=== PATIENT | female | born 1950 | race Caucasian/White ===

== ENCOUNTER 2017-02-08 11:27 | Emergency (ER) | payer MEDICARE, OTHER ==
[~2017-02-08] VITALS: Ht 162.6 cm; Wt 71.7 kg
[2017-02-08] MEDS ORDERED: HYDR12.55 PO (11:56)
[2017-02-08] MEDS ORDERED: METF-700 PO (11:56)
[2017-02-08] MEDS ORDERED: ATEN50TA2 PO (11:56)
[2017-02-08] MEDS ORDERED: LOSA100T36 PO (11:56)
[2017-02-08 14:15] LABS: MEAN CORPUSCULAR HEMOGLOBIN 30.4 pg (27.0-33.0); MEAN CORPUSCULAR HGB CONC 32.7 g/dl (32.0-36.5); MEAN CORPUSCULAR VOLUME 92.9 fl (80.0-96.0); RED CELL DISTRIBUTION WIDTH 13.3 % (11.5-14.5)
[2017-02-08 14:37] LABS: ANION GAP 11 MEQ/L (8-16); BLOOD UREA NITROGEN 17 MG/DL (7-18); CALCIUM LEVEL 10.3 MG/DL (8.8-10.2); CARBON DIOXIDE LEVEL 27 MEQ/L (21-32); CHLORIDE LEVEL 104 MEQ/L (98-107); CREATININE FOR GFR 0.77 MG/DL (0.55-1.02); GLOMERULAR FILTRATION RATE > 60.0 (>45); GLUCOSE, FASTING 115 MG/DL (80-110); POTASSIUM SERUM 3.9 MEQ/L (3.5-5.1); SODIUM LEVEL 142 MEQ/L (136-145)
--- NOTE | 2017-02-08 14:49 | REP ---
CT HEAD WITHOUT CONTRAST: HISTORY: Headache. Areas of decreased attenuation are present in the periventricular white matter. This represents small vessel ischemic disease. There is no intraparenchymal hemorrhage, mass or midline shift. The ventricular system and cortical sulci are dilated consistent with minimal volume loss. There is no extracerebral collection. The visualized sinuses are clear. IMPRESSION: 1. Small vessel ischemic disease. 2. Minimal volume loss. Signed by Marques Muller MD 02/08/2017 02:51 P
--- NOTE | 2017-02-08 14:53 | REP ---
Chest two views HISTORY: Hypertension Comparison: 05/15/2008 Linear density is present in the left lower lobe consistent with scar. The right lung is clear. The heart is normal in size. The pulmonary vasculature is normal in appearance. The bony structure is intact. IMPRESSION: Left lower lobe scar. Signed by Marques Muller MD 02/08/2017 02:44 P
[2017-02-08] MEDS ORDERED: CORE25TA PO (15:12)
[2017-02-08] MEDS ORDERED: CHLO125TA PO (15:12)
[2017-02-08] MEDS ORDERED: SPIR25TA2 PO (15:12)
[2017-02-08 15:25] VITALS: BP 153/74
--- NOTE | 2017-02-09 08:32 | ECGEPIP ---
Stationary ECG Study [facility] - ED Test Date: 2017-02-08 Pat Name: HARRIETT JENSEN Department: Room: - Gender: F [employer]: : 1950 Requested By: Rosina Hudson Order Number: [id number] Reading MD: Rosina Hudson Measurements Intervals [place] Rate: 65 P: 34 OK: 153 QRS: -12 QRSD: 87 T: 7 QT: 377 QTc: 394 Interpretive Statements SINUS RHYTHM MINIMAL ST DEPRESSION NSTTW ABNORMALITY NO PRIOR FOR COMPARISON Electronically Signed On 02-09-2017 8:31:54 EDT by Rosina Hudson
== END 2017-02-08 15:26 | disposition home or self-care (01) ==
LOC: M ED 14:14
DX: I10 Essential (primary) hypertension (principal); E11.9 Type 2 diabetes mellitus without complications; Z79.899 Other long term (current) drug therapy; Z79.84 Long term (current) use of oral hypoglycemic drugs

== ENCOUNTER → 2017-02-28 | Outpatient (REF) | payer MEDICARE, OTHER ==
[~2017-02-28] MED LIST: ATEN50TA2 PO; CHLO125TA PO; CORE25TA PO; HYDR12.55 PO; LOSA100T36 PO; METF-700 PO; SPIR25TA2 PO
[2017-02-28 12:29] LABS: MICROSCOPIC INDICATED? MAN NO (NO)
== END ==
LOC: M LABDRAW1 11:24
PROVIDERS: ATTEND Internal Medicine Cardiovascular Disease
DX: I10 Essential (primary) hypertension (principal)

== ENCOUNTER → 2017-04-05 | Outpatient (CLI) | payer MEDICARE, OTHER ==
--- NOTE | 2017-04-05 17:18 | REP ---
MRA RENAL ARTERIES: Localizing axial and coronal sequences are obtained of the kidneys. 3D TOF MRA is performed of the renal arteries following the intravenous administration of 30 mL of gadolinium. MIP reconstruction images are performed. The abdominal aorta is normal in caliber. There is no aneurysm. Mesenteric arteries are patent. There is a single renal artery bilaterally. The left renal artery is widely patent with no significant narrowing or stenosis. There does appear to be approximately 50% narrowing at the origin of the right renal artery. IMPRESSION: Focal 50% stenosis in the proximal right renal artery. Signed by Tre Lion MD 04/08/2017 12:34 P
== END ==
LOC: M RAD 14:49
PROVIDERS: ATTEND Internal Medicine Cardiovascular Disease
DX: I15.0 Renovascular hypertension (principal)
CPT/HCPCS: A9576; C8902

== ENCOUNTER → 2017-09-09 | Outpatient (CLI) | payer MEDICARE, OTHER ==
--- NOTE | 2017-09-09 16:12 | REPMRS ---
Patient History The patient states she had a clinical breast exam in 09/2017. Patient is postmenopausal and has history of other cancer at age 29. No known family history of cancer. Digital Woman Screen Mammo: September 09, 2017 - Exam #: [id number] Bilateral CC and MLO view(s) were taken. Technologist: Eloise Mejía, Technologist Prior study comparison: August 12, 2015, digital woman screen mammo performed at [facility]. August 31, 2013, digital woman screen [facility]. August 14, 2012, digital woman screen mammo performed at [facility] to [facility]. FINDINGS: There are scattered fibroglandular densities. There has been no change in the appearance of the mammogram from the prior studies. There is a mild amount of scattered fibroglandular density which is fairly symmetric. There is no interval development of dominant mass, architectural distortion, or clustered microcalcification suggestive of malignancy. ASSESSMENT: BI-RADS/ACR category 1 mammogram. Negative. Recommendation Routine screening mammogram in 1 year (for women over age 40). This mammogram was interpreted with the aid of an FDA-approved computer-aided dectection system. Electronically Signed By: Kaleb Delaney MD 09/09/17 [id number]
== END ==
LOC: M WHC 14:41
PROVIDERS: ATTEND Nurse Practitioner Family
DX: Z12.31 Encounter for screening mammogram for malignant neoplasm of breast (principal); Z78.0 Asymptomatic menopausal state; Z12.4 Encounter for screening for malignant neoplasm of cervix; Z12.12 Encounter for screening for malignant neoplasm of rectum; Z85.41 Personal history of malignant neoplasm of cervix uteri; N95.9 Unspecified menopausal and perimenopausal disorder
CPT/HCPCS: 82270; G0101; G0123; G0202; G0463

== ENCOUNTER 2018-01-16 09:43 | Emergency (ER) | payer MEDICARE, OTHER | END 2018-01-16 12:43 | disposition home or self-care (01) | LOC: M ED 09:43 | DX: M51.37 Other intervertebral disc degeneration, lumbosacral region (principal); M54.17 Radiculopathy, lumbosacral region; M54.32 Sciatica, left side; I10 Essential (primary) hypertension; E11.9 Type 2 diabetes mellitus without complications; Z79.899 Other long term (current) drug therapy; Z79.82 Long term (current) use of aspirin; Z79.84 Long term (current) use of oral hypoglycemic drugs | CPT/HCPCS: 72110 ==

== ENCOUNTER → 2018-03-28 | Outpatient (REF) | payer MEDICARE, OTHER | LOC: M LAB REF 16:48 | DX: R21 Rash and other nonspecific skin eruption (principal) | CPT/HCPCS: 87186 ==

== ENCOUNTER → 2018-04-11 | Outpatient (REF) | payer MEDICARE, OTHER | LOC: M LAB REF 16:58 | DX: R21 Rash and other nonspecific skin eruption (principal) | CPT/HCPCS: 87186 ==

== ENCOUNTER → 2018-06-17 | Outpatient (REF) | payer MEDICARE, OTHER | LOC: M LAB REF 12:40 | DX: L08.9 Local infection of the skin and subcutaneous tissue, unspecified (principal) | CPT/HCPCS: 87186 ==

== ENCOUNTER 2019-04-20 08:19 | Emergency (ER) | payer MEDICARE, OTHER ==
[~2019-04-20] VITALS: Ht 165.1 cm; Wt 65.9 kg
[~2019-04-20 08:19] MED LIST changes: +ASPI81TA26 PO; -LOSA100T36 PO; +LOSA100T50 PO; +MAGN500C2 PO; +NAPR-837 PO; +SPIR-10 PO; -SPIR25TA2 PO; +VITA100067 PO
[2019-04-20] MEDS ORDERED: ATOR80TA59 PO (08:34)
[2019-04-20 09:51] LABS: BASO % 0.3 % (0.0-1.0); EOS # 0.1 10^3/uL (0.0-0.50); EOS % 0.9 % (0.0-3.0); HEMATOCRIT 39.5 % (36.0-47.0); HEMOGLOBIN 12.5 g/dl (12.0-15.5); LYMPH # 0.7 10^3/uL (1.5-4.5); LYMPH % 6.6 % (24.0-44.0); MEAN CORPUSCULAR HEMOGLOBIN 29.5 pg (27.0-33.0); MEAN CORPUSCULAR HGB CONC 31.6 g/dl (32.0-36.5); MEAN CORPUSCULAR VOLUME 93.2 fl (80.0-96.0); MONO # 0.5 10^3/uL (0.0-0.8); MONO % 4.7 % (0.0-5.0); NEUTROPHILS # 9.8 10^3/uL (1.8-7.7); NEUTROPHILS % 86.7 % (36.0-66.0); PLATELET COUNT, AUTOMATED 330 10^3/uL (150-450); RED BLOOD COUNT 4.24 10^6/uL (4.00-5.40); WHITE BLOOD COUNT 11.3 10^3/uL (4.0-10.0)
[2019-04-20] MEDS ORDERED: NS 1,000 ML IV ONE (10:00)
[2019-04-20 10:18] LABS: BLOOD UREA NITROGEN 28 MG/DL (7-18); CALCIUM LEVEL 10.6 MG/DL (8.8-10.2); CARBON DIOXIDE LEVEL 28 MEQ/L (21-32); CHLORIDE LEVEL 105 MEQ/L (98-107); CREATININE FOR GFR 0.97 MG/DL (0.55-1.30); GLOMERULAR FILTRATION RATE > 60.0 (>45); GLUCOSE, FASTING 143 MG/DL (70-100); POTASSIUM SERUM 3.8 MEQ/L (3.5-5.1); SODIUM LEVEL 140 MEQ/L (136-145)
[2019-04-20 10:19] LABS: ALBUMIN 3.9 GM/DL (3.2-5.2); ALT/SGPT 29 U/L (12-78); AMYLASE 50 U/L (25-115); BILIRUBIN,DIRECT 0.2 MG/DL (0.0-0.2); BILIRUBIN,TOTAL 0.6 MG/DL (0.2-1.0); LIPASE 109 U/L (73-393); TOTAL PROTEIN 7.5 GM/DL (6.4-8.2)
[2019-04-20] MEDS ORDERED: MORPHINE 2 MG/ML 1ML SYRINGE (J2270) IV ONE (10:45)
--- NOTE | 2019-04-20 11:26 | REP ---
CT ABDOMEN AND PELVIS WITHOUT CONTRAST: CT abdomen and pelvis performed without oral or IV contrast. Sagittal and coronal reconstruction images are performed. Visualized lung bases demonstrate fibrotic changes. The liver is grossly unremarkable. The patient has had a prior cholecystectomy. I do not see evidence of biliary dilatation. The spleen, adrenals and pancreas are grossly unremarkable. There is an intrarenal calculus in the lower pole of the right kidney measuring approximately 5 mm. There is an adjacent cyst in the lower pole of the right kidney measuring 2.5 cm. There is a punctate intrarenal calculus in the upper pole of the left kidney with adjacent cyst which measures 3.6 cm in diameter. An intrarenal calculus in the lower pole of the left kidney measures 8 mm in diameter. There is no hydroureteronephrosis. No ureteral calculus or bladder calculus is seen. There is moderate atherosclerotic calcification of the abdominal aorta without aneurysm. There is no adenopathy. There is no free air. There is mild free fluid in the pelvis. There are degenerative changes of the spine. No bowel wall thickening is seen. No pelvic mass is seen. IMPRESSION: Bilateral intrarenal calculi with no evidence of ureteral calculus and no hydroureteronephrosis. A cyst is seen in each kidney. No free air. Mild free fluid in the pelvis is nonspecific. No other acute findings. Electronically Signed by Tre Lion MD 04/20/2019 04:19 P
[2019-04-20 14:16] VITALS: BP 137/63
== END 2019-04-20 14:34 | disposition home or self-care (01) ==
LOC: M ED 08:19
DX: E86.0 Dehydration (principal); N20.0 Calculus of kidney; N28.1 Cyst of kidney, acquired; R79.89 Other specified abnormal findings of blood chemistry; E11.9 Type 2 diabetes mellitus without complications; I10 Essential (primary) hypertension; Z87.19 Personal history of other diseases of the digestive system; Z79.899 Other long term (current) drug therapy; Z79.84 Long term (current) use of oral hypoglycemic drugs; Z79.82 Long term (current) use of aspirin
CPT/HCPCS: 74176; 80048; 80076; 81001; 82150; 83690; 84520; 85025; 96361; 96374; 99284; J2270

== ENCOUNTER → 2019-05-11 | Outpatient (REF) | payer MEDICARE, OTHER ==
[~2019-05-11] MED LIST changes: +ATOR80TA59 PO
[2019-05-11 19:04] LABS: APPEARANCE, URINE CLEAR (CLEAR); BACTERIA, URINE AUTO 1+ (NEGATIVE); BILIRUBIN, URINE AUTO NEGATIVE (NEGATIVE); BLOOD, URINE BLOOD NEGATIVE (NEGATIVE); COLOR, URINE STRAW (YELLOW); GLUCOSE, URINE (UA) AUTO NEGATIVE (NEGATIVE); KETONE, URINE AUTO NEGATIVE (NEGATIVE); LEUKOCYTE ESTERASE, URINE AUTO NEGATIVE (NEGATIVE); NITRITE, URINE AUTO NEGATIVE (NEGATIVE); PROTEIN, URINE AUTO NEGATIVE (NEGATIVE); RBC, URINE AUTO 0 /HPF (0-3); SPECIFIC GRAVITY URINE AUTO 1.004 (1.002-1.035); SQUAMOUS EPITHELIAL CELL UR AU 0 /HPF (0-6); UROBILINOGEN, URINE AUTO 0.2 mg/dL (0.0-2.0); WBC, URINE AUTO 1 /HPF (0-3)
[2019-05-11 19:05] LABS: MUCUS, URINE SMALL (NEGATIVE)
== END ==
LOC: M SMT 17:19
PROVIDERS: ATTEND Nurse Practitioner Women's Health
DX: N20.0 Calculus of kidney (principal)

== ENCOUNTER → 2019-05-11 | Outpatient (CLI) | payer MEDICARE, OTHER ==
[~2019-05-11] MED LIST changes: +CULTCAP2 PO; +D-101000 PO
--- NOTE | 2019-05-11 18:27 | REP ---
KUB: Single view: History: Kidney stone. Comparison study is a CT examination from April 20, 2019. Findings: There is a large triangular calcification projecting over the lower pole of the left kidney. This measures 9 mm in greatest diameter. This is compatible with the lower pole calculus seen on April 20, 2019 CT study. There is a smaller calcific density projecting at the lower pole of the right kidney, 4 mm. Vascular calcifications noted. There are degenerative disc changes in the lumbar spine. No definite ureteral calculus is seen. Multiple phleboliths are noted. Impression: Bilateral intrarenal nephrolithiasis, largest on the left, 9 mm. Electronically Signed by Ankit Delaney MD 05/12/2019 04:42 P
== END ==
LOC: M SMT 15:52
PROVIDERS: ATTEND Nurse Practitioner Women's Health
DX: N20.0 Calculus of kidney (principal); I87.8 Other specified disorders of veins
CPT/HCPCS: 74018; 81001; 87088; 87186; G0463

== ENCOUNTER 2019-06-04 06:35 | Day surgery (SDC) | payer MEDICARE, OTHER ==
[~2019-06-04] VITALS: Ht 162.6 cm; Wt 64.0 kg
[~2019-06-04 06:35] MED LIST changes: +LR 1,000 ML IV ONE
[2019-06-04] MEDS ORDERED: ONDANSETRON 4MG/2ML VIAL (J2405) As Ordered ONE (07:53)
[2019-06-04] MEDS ORDERED: LIDOCAINE 2% INJ 100 MG/5 ML SDV (FOR ANES.) As Ordered ONE (07:53)
[2019-06-04] MEDS ORDERED: PROPOFOL 200 MG/20 ML VIAL As Ordered ONE ×2 (07:53→09:09)
[2019-06-04] MEDS ORDERED: MIDAZOLAM INJ 2 MG/2 ML VIAL (J2250) As Ordered ONE (07:56)
[2019-06-04] MEDS ORDERED: fentaNYL 100 MCG/2 ML INJECTION (J3010) As Ordered ONE (07:57)
--- NOTE | 2019-06-04 08:17 | REP ---
Clinical: Nephrolithiasis. Comparison: 05/11/2019. Findings: 7 mm triangular-shaped calculus overlies the lower pole of the left kidney and is unchanged from prior examination. 2 mm calculus also identified overlying the mid pole right kidney and unchanged. The bowel gas pattern is nonspecific. Evidence of prior cholecystectomy. Calcifications in the pelvis remains stable and likely represent phleboliths. Skeletal structures demonstrate degenerative changes and chronic scoliosis. Impression: Stable nonobstructing bilateral renal calculi. Electronically Signed by Anthony Dickerson MD 06/04/2019 08:08 A
[2019-06-04] MEDS ORDERED: ePHEDrine SULFATE 25 MG/5 ML(5MG/ML) SYRINGE As Ordered ONE (09:09)
--- NOTE | 2019-06-04 10:15 | RO ---
DATE OF PROCEDURE: 06/04/2019 PREPROCEDURE DIAGNOSIS: Kidney stones. POSTPROCEDURE DIAGNOSIS: Kidney stones. PROCEDURE: Bilateral extracorporal shock lithotripsy. SURGEON: Dr. Bryson Sorenson. LABORER STARCH FACTORY: None. ANESTHESIA: Monitored anesthesia care (MAC) OPERATIVE INDICATION: 69-year-old female who was found to have bilateral kidney stones. She was brought to the operating room today for the above listed procedure. DESCRIPTION OF PROCEDURE: The patient was brought to the operating room and MAC anesthesia was administered. Prophylactic antibiotics were unfused. She was then placed in the supine position in preparation first for right-sided extracorporal shockwave lithotripsy. Fluoroscopy was utilized to monitor stone position and fragmentation of the procedure. Shockwaves were then delivered to the right sided 5 mm kidney stone ungated. There are no arrhythmias. After 2500 shocks, it appeared the stone had fragmented well. The patient was then repositioned for left-sided extracorporal shockwave lithotripsy. Once again, fluoroscopy was utilized to monitor stone position and fragmentation. The 8 mm stone inside the left kidney was targeted. Shockwave was delivered ungated and after 2500 shocks, the stone appeared to be fragmented well. This concluded the procedure. The patient was then awakened from anesthesia and transported to the recovery room in stable condition. ESTIMATED BLOOD LOSS: 0 mm. COMPLICATIONS: None. SPECIMENS: None. PLAN: The patient will followup in the clinic in a few weeks with imaging prior to assess for additional stone burden.
[2019-06-04 10:45] VITALS: BP 180/71
[2019-06-04] MEDS ORDERED: LR 1,000 ML IV SCH (10:45)
[2019-06-04] MEDS ORDERED: ONDANSETRON 4MG/2ML VIAL (J2405) IV PRN (10:45)
[2019-06-04] MEDS ORDERED: NORCO, ANEXSIA 5/325MG TABLET (HYDROcodone/ACETAMINOPHEN) PO PRN (10:45)
[2019-06-04] MEDS ORDERED: PERCOCET 5MG/325MG TAB PO PRN ×2 (11:00)
== END 2019-06-04 11:47 | disposition home or self-care (01) ==
LOC: M SDC 06:35
PROVIDERS: ATTEND Urology
DX: N20.0 Calculus of kidney (principal); I10 Essential (primary) hypertension; K58.8 Other irritable bowel syndrome; E11.9 Type 2 diabetes mellitus without complications; Z79.82 Long term (current) use of aspirin; Z79.84 Long term (current) use of oral hypoglycemic drugs; Z79.899 Other long term (current) drug therapy
CPT/HCPCS: 50590; 74018; J0690; J2250; J2405; J3010

== ENCOUNTER → 2019-06-30 | Outpatient (CLI) | payer MEDICARE, OTHER ==
[~2019-06-30] MED LIST changes: -LR 1,000 ML IV ONE
--- NOTE | 2019-06-30 12:58 | REP ---
Supine abdomen for renal calculi: Comparison is 06/04/2019. There is a 4 mm calcification projected over the mid pole of the right kidney, unchanged from the comparison study. The triangular shaped calcification projected over the lower pole of the left kidney on the prior study is no longer visible. The kidneys are obscured by bowel gas. However, the current study there is a 3 mm calcification projected over the lower pole of the left kidney. There are pelvic calcifications, unchanged. Bowel gas pattern is normal. There is degenerative disc disease and scoliosis of the lumbar spine, unchanged. There are surgical clips in the gallbladder fossa, unchanged. Electronically Signed by Tre Henderson MD 06/30/2019 12:50 P
[2019-06-30 14:23] LABS: APPEARANCE, URINE CLEAR (CLEAR); BACTERIA, URINE AUTO NEGATIVE (NEGATIVE); BILIRUBIN, URINE AUTO NEGATIVE (NEGATIVE); BLOOD, URINE BLOOD NEGATIVE (NEGATIVE); COLOR, URINE STRAW (YELLOW); GLUCOSE, URINE (UA) AUTO NEGATIVE (NEGATIVE); KETONE, URINE AUTO NEGATIVE (NEGATIVE); LEUKOCYTE ESTERASE, URINE AUTO NEGATIVE (NEGATIVE); MUCUS, URINE SMALL (NEGATIVE); NITRITE, URINE AUTO NEGATIVE (NEGATIVE); PROTEIN, URINE AUTO NEGATIVE (NEGATIVE); RBC, URINE AUTO 1 /HPF (0-3); SPECIFIC GRAVITY URINE AUTO 1.011 (1.002-1.035); SQUAMOUS EPITHELIAL CELL UR AU 0 /HPF (0-6); UROBILINOGEN, URINE AUTO 0.2 mg/dL (0.0-2.0); WBC, URINE AUTO 0 /HPF (0-3)
== END ==
LOC: M SMT 11:18
PROVIDERS: ATTEND Nurse Practitioner Women's Health
DX: N20.0 Calculus of kidney (principal); M51.36 Other intervertebral disc degeneration, lumbar region; M41.86 Other forms of scoliosis, lumbar region

== ENCOUNTER → 2019-07-01 | Outpatient (CLI) | payer MEDICARE, OTHER ==
[~2019-07-01] MED LIST changes: +LIQUID POLIBAR PLUS 105% w/v 1900ML BTL As Ordered ONE
--- NOTE | 2019-07-01 16:44 | REP ---
BARIUM ENEMA AIR CONTRAST The procedure was performed under the direct supervision of Dr. Delaney. The images were reviewed with Dr. Delaney. The talent scout film shows no organomegaly or pathological masses. The intestinal gas pattern is nonspecific. There are surgical clips noted in the right upper quadrant. There are bilateral renal stones as seen on a previous abdominal film performed on 06/30/2019. Liquid barium and air were instilled into the colon and retrograde flow of the barium air mixture. In the rectosigmoid colon there is an elongated nodular stricture with one or two diverticula adjacent. 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 The remainder of the colon is unremarkable. Impression: In the rectosigmoid colon there is an elongated nodular stricture with one or two diverticula adjacent. 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 2.1 minutes of fluoroscopy time was utilized for this procedure. Reviewed by RICK Jacobo 07/01/2019 04:15 P Electronically Signed by Ankit Delaney MD 07/01/2019 04:34 P
== END ==
LOC: M RAD 07:58
PROVIDERS: ATTEND Internal Medicine Gastroenterology
DX: K62.4 Stenosis of anus and rectum (principal)

== ENCOUNTER → 2019-08-21 | Outpatient (CLI) | payer MEDICARE, OTHER ==
[~2019-08-21] MED LIST changes: -LIQUID POLIBAR PLUS 105% w/v 1900ML BTL As Ordered ONE
--- NOTE | 2019-08-21 12:33 | REP ---
Five views lumbar spine: 08/22/2019. Indication: Low back pain. Comparison: CT abdomen pelvis dated 04/20/2019. Findings: Mild dextroscoliosis of the lumbar spine is present with the convexity centered at L1/L2. Disc space narrowing is present throughout most pronounced at L2/L3. Grade 1 anterolisthesis is present at L3/O for as well as L4/L5. Endplate degenerative sclerotic changes are present most pronounced on the left at L2/L3. Aortic atherosclerotic disease is present. Bilateral renal calculi are present. The patient is status post cholecystectomy. The osseous structures are diffusely osteopenic. There is no evidence of acute fracture. Extensive multilevel spondylitic sequelae are present with the greatest neural foraminal narrowing at L3/L4. Impression: No acute fracture. Scoliosis. L3/L4 and L4/L5 spondylolisthesis secondary to facet arthropathy. Extensive multilevel degenerative sequelae as described. Electronically Signed by Rock Winkler DO 08/21/2019 12:24 P
--- NOTE | 2019-08-21 14:06 | REP ---
REASON: Back pain and sciatica. The bones are somewhat demineralized. There is slight asymmetric hip joint space narrowing. There is no fracture, dislocation, or subluxation. IMPRESSION: Chronic changes, as described above. Electronically Signed by Tu Milton DO 08/21/2019 04:17 P
== END ==
LOC: M ADAMS 10:49
PROVIDERS: ATTEND Physician Assistant Medical
DX: M54.41 Lumbago with sciatica, right side (principal)

== ENCOUNTER → 2020-04-14 | Outpatient (CLI) | payer MEDICARE, OTHER ==
--- NOTE | 2020-04-14 14:19 | REPMRS ---
Patient History The patient states she had a clinical breast exam in April 2020. No known family history of cancer. 3D TOMOSYNTHESIS WAS PERFORMED. [facility] lifetime risk for breast cancer is 2.3%. VOLPARA DENSITY B. Digital Woman Screen Mammo: April 14, 2020 - Exam #: [id number] Bilateral CC and MLO view(s) were taken. Technologist: Catrachita Garcia, Technologist Prior study comparison: September 09, 2017, digital woman screen mammo performed at [facility]. August 12, 2015, digital woman screen mammo performed at [facility]. FINDINGS: There are scattered fibroglandular densities. There has been no change in the appearance of the mammogram from the prior studies. There is a mild amount of residual fibroglandular tissue which is fairly symmetric. There is no interval development of dominant mass, architectural distortion, or clustered microcalcification suggestive of malignancy. Assessment: BI-RADS/ACR category 1 mammogram. Negative Mammogram. Recommendation Routine screening mammogram in 1 year (for women over age 40). This mammogram was interpreted with the aid of an FDA-approved computer-aided dectection system. Electronically Signed By: Tre Lion MD 04/14/20 [id number]
== END ==
LOC: M WHC 11:30
PROVIDERS: ATTEND Nurse Practitioner Family
DX: Z01.419 Encounter for gynecological examination (general) (routine) without abnormal findings (principal); Z12.31 Encounter for screening mammogram for malignant neoplasm of breast
CPT/HCPCS: 77063; 77067; G0101; G0123

== ENCOUNTER → 2020-04-14 | Outpatient (REF) | payer MEDICARE, OTHER | LOC: M SFHCWAGY 14:41 | PROVIDERS: ATTEND Nurse Practitioner Family | DX: Z12.4 Encounter for screening for malignant neoplasm of cervix (principal); N95.8 Other specified menopausal and perimenopausal disorders ==

== ENCOUNTER → 2020-11-07 | Outpatient (CLI) | payer MEDICARE, OTHER ==
[~2020-11-07] MED LIST changes: -METF-700 PO; +METF-818 PO
--- NOTE | 2020-11-07 16:02 | REP ---
INDICATION: LEFT LEG PAIN AND SWELLING COMPARISON: None. TECHNIQUE: Lion scale and color Doppler evaluation using linear high frequency transducer. FINDINGS: Ultrasound examination of the left lower extremity deep venous structures from the common femoral vein to the popliteal vein demonstrates normal compressibility flow and wave patterns in response to respiration and augmentation. There is no evidence for deep venous thrombosis. IMPRESSION: No evidence for deep venous thrombosis. <Electronically signed by Anthony Dickerson > 11/07/20 155
== END ==
LOC: M RAD 15:32
PROVIDERS: ATTEND Physician Assistant
DX: M25.562 Pain in left knee (principal); M79.662 Pain in left lower leg

== ENCOUNTER → 2021-04-27 | Outpatient (REF) | payer MEDICARE, OTHER | LOC: M SFHCWAGY 10:06 | PROVIDERS: ATTEND Nurse Practitioner Women's Health | DX: Z12.4 Encounter for screening for malignant neoplasm of cervix (principal); Z85.41 Personal history of malignant neoplasm of cervix uteri; R87.615 Unsatisfactory cytologic smear of cervix ==

== ENCOUNTER → 2021-04-27 | Outpatient (CLI) | payer MEDICARE, OTHER ==
--- NOTE | 2021-04-27 16:54 | REPMRS ---
Patient History The patient states she had a clinical breast exam in April 2021. No known family history of cancer. Patient states no breast complaints today. Patient has signed MRS History Sheet. Digital Woman Screen Mammo: April 27, 2021 - Exam #: [id number] Bilateral CC and MLO view(s) were taken. Technologist: Lanette Martínez, Technologist Prior study comparison: April 14, 2020, bilateral digital woman screen mammo performed at [facility]. September 09, 2017, digital woman screen mammo performed at [facility]. August 12, 2015, digital woman screen mammo performed at [facility]. FINDINGS: There are scattered fibroglandular densities. The Volpara volumetric breast density category is:B. There has been no change in the appearance of the mammogram from the prior studies. There is a mild amount of scattered fibroglandular density which is fairly symmetric. There is no interval development of dominant mass, architectural distortion, or grouped microcalcification suggestive of malignancy. 3-D tomosynthesis shows no additional findings. Assessment: BI-RADS/ACR category 1 mammogram. Negative Mammogram. Recommendation Routine screening mammogram of both breasts in 1 year (for women over age 40). This patient's [facility] Lifetime Breast Cancer Risk is estimated at 2.2 %. This mammogram was interpreted with the aid of an FDA-approved computer-aided dectection system. Electronically Signed By: Kaleb Delaney MD 04/27/21 0340
== END ==
LOC: M WHC 15:52
PROVIDERS: ATTEND Nurse Practitioner Women's Health
DX: Z01.419 Encounter for gynecological examination (general) (routine) without abnormal findings (principal); Z12.31 Encounter for screening mammogram for malignant neoplasm of breast
CPT/HCPCS: 77063; 77067; G0101

== ENCOUNTER → 2021-06-15 | Outpatient (CLI) | payer MEDICARE, OTHER ==
--- NOTE | 2021-06-15 12:29 | REP ---
INDICATION: DIARRHEA, UNSPECIFIED. COMPARISON: 06/30/2019 the latest prior FINDINGS: KUB shows the intestinal gas pattern to be nonspecific. The organ silhouettes insofar as delineated are unremarkable. There is no evidence of free intraperitoneal air. The osseous structures are unchanged. There are pelvic calcifications status quo. IMPRESSION: Nonspecific. <Electronically signed by Tu Milton > 06/15/21 [id number]
== END ==
LOC: M RAD 11:05 → M LAB 11:05
PROVIDERS: ATTEND Student in an Organized Health Care Education/Training Program
DX: R19.7 Diarrhea, unspecified (principal)

== ENCOUNTER 2021-08-25 10:42 | Emergency (ER) | payer MEDICARE, OTHER ==
[~2021-08-25] VITALS: Ht 162.6 cm; Wt 55.5 kg
--- OUTSIDE RECORDS SUMMARY | 2021-08-25 10:47 | CCD | Continuity of Care Document ---
Author Author Deepali BARRON M.D. Organization Unknown Address [address] [place] [address] Phone [phone] Problems Active Problems Provider Date Essential hypertension Leelee Barron M.D. Onset: 03/30 Impaired fasting glycemia Leelee Barron M.D. Onset: Type 2 diabetes mellitus Leelee Barron M.D. Onset: Social History Type Date Description Comments Sex Unknown Tobacco Use Start: Unknown End: Unknown denies cigarette use Tobacco Use Start: Unknown Never Used Smokeless Tobacco ETOH Use Occasionally consumes alcohol Tobacco Use Start: Unknown End: Unknown Patient is a former smoker quit 30 years ago Recreational Drug Use Denies Drug Use Smoking Status Reviewed: 01/24/21 Patient is a former smoker qu it 30 years ago Exercise Type/Frequency Exercises regularly Tattoo/Piercing Pierced ears Sun Exposure Moderate amount of sun exposure Sun Exposure Uses 15-30 SPF Seat Belt/Car Seat Always uses seat belt Bike Helmet Never Does not bike ri de Smoke Alarms Yes Smoke Alarms Carbon Monoxide Detector: Yes Allergies, Adverse Reactions, Alerts Description No Known Drug Allergies Medications Active Medications SIG Qnty Indications Ordering Provide r Date Escitalopram Oxalate 10mg Tablets 1 by mouth every day 30tabs F41.9 Leelee Barron M.D. 021 Losartan Potassium 100mg Tablets take one half tablet by mouth every evening 30tabs I10 Luca Barrno M.D. 06/10/2015 Metformin HCL ER 500mg Tablets ER 24HR Take Two Tablets By Mouth Every Day Take With Largest Meal 60tabs R 73.01 Margie Bhatti FNP 09/07/2013 Vitamin D 1000Unit Capsules 1 po qd otc Leelee Barron M.D. 11/07/2009 Carvedilol 25mg Tablets Take One Tablet By Mouth Twice A Day 60tabs Margie Bhatti FNP 0 Spironolactone 25mg Tablets take one tablet by mouth every morning Ernesto Casey MD Chlorthalidone 25mg Tablets take 1/2 tablet by mouth every morning Ernesto Casey MD Atorvastatin Calcium 40mg Tablets take one tablet by mouth every evening Ernesto Casey MD Magnesium 400mg Tablets 1 by mouth bid Ernesto Casey MD Aspir-[address] 1 by mouth every day Ernesto Casey MD Benefiber Powder with Probiotic, once daily for constipation Unknown 0 Dorzolamide HCL 2% Solution Unknown Osteo Bi-Flex Regular Strength 250-200mg Tablets one po bid Unknown Immunizations CPT Code Status Date Vaccine Lot # [id number] Given 08/09/2021 Influenza Virus Vaccine, Donald drivalent,multidose vial [id number] 04340 Given 01/13/2021 Moderna Sars-(Co vid-19) vaccine, mRNA, LNP-S, PF, 100 mcg/ 0.5 mL 57176 Given 12/16/2020 Moderna Sars-(Co vid-19) vaccine, mRNA, LNP-S, PF, 100 mcg/ 0.5 mL 18671 Given 07/27/2020 Influenza Virus Vaccine, Donald drivalent,multidose vial [id number] 76566 Given 03/06/2018 Pneumococcal Vaccine [id number] 10162 Given 08/13/2015 Zostavax 05767 Given 07/07/2015 Influenza Vaccination 25662 Given 06/10/2015 Prevnar 13 [id number] 36466 Given 08/28/2013 Influenza Vaccination 84001 Given 11/22/2009 H1N1 Vaccine 25335 Given 08/31/2009 Influenza Vaccination Vital Signs Date Vital Result Comment 08/09/2021 10:14am BP Systolic 131 mmHg BP Diastolic 54 mmHg Heart Rate 59 /min Body Temperature 97.3 F Respiratory Rate 16 /min Height 63.5 inches 5'3.50" Weight 124.25 lb O2 % BldC Oximetry 98 % Peak Expiratory Flow Rate 317 Estimated Peak Flow Rate [place] Body Weight 115 lb BMI (Body Mass Index) 21.7 kg/m2 01/24/2021 10:22am BP Systolic 146 mmHg BP Diastolic 56 mmHg BP Systolic Recheck 129 mmHg recheck BP Diastolic Recheck 67 mmHg recheck Heart Rate 66 /min Body Temperature 97.1 F Respiratory Rate 16 /min Height 63.5 inches 5'3.50" Weight 145.12 lb O2 % BldC Oximetry 98 % Peak Expiratory Flow Rate 319 Estimated Peak Flow Rate [place] Body Weight 115 lb BMI (Body Mass Index) 25.3 kg/m2 Results Test Acquired Date Facility Test Result H/L Range Note Hemoglobin A1c 08/03/[address] [facility] [address] [place] [address] [phone] Hemoglobin A1c 6.5 % High 4.8-5.6 1, 2 1 A courtesy copy of this repo rt has been sent to the patient, 2 Prediabetes: 5.7 - 6.4 Diabetes: >6.4 Glycemic control for adults with diabetes: <7.0 Procedures Date Code Description Status 04/2021 [id number] Mammogram Completed 01/24/2021 [id number] Diabetic Foot Exam Completed 2009 [id number] Bone Mineral Density Test Comple GetMyBoat Description No Information Available Encounters Description No Information Available Assessments Date Code Description Provider 08/09/2021 E78.2 Mixed hyperlipidemia Alexandria Barron M.D. 08/09/2021 Z85.828 Personal history of other malign ant neoplasm of skin Leelee Barron M.D. 08/09/2021 I10 Essential (primary) hypertension Leelee Barron M.D. 08/09/2021 E11.42 Type 2 diabetes mellitus with di abetic polyneuropathy Leelee Barron M.D. 08/09/2021 Z00.00 Encounter for genera l adult medical examination without abnormal findings Leelee Barron M.D. 08/09/2021 R19.7 Diarrhea, unspecified Leelee Barron M.D. Plan of Treatment Future Appointment(s):* 11/10/2021 11:30 am - Leelee Barron M.D. at Main Office 08/09/2021 - Leelee Barron M.D.* E78.2 Mixed hyperlipidemia * Z85.828 Personal history of other malignant neoplasm of skin * I10 Essential (primary) hypertension * E11.42 Type 2 diabetes mellitus with diabetic polyneuropathy* New Labs:* CBC With Differential, Scheduled: 01/30/22 * Comprehensive Metabolic Profil, Scheduled: 01/30/22 * Hemoglobin A1c, Scheduled: 01/30/22 * Lipid Panel, Scheduled: 01/30/22 * Microalbumin Random, Scheduled: 01/30/22 * Comments:* no changes in meds, A1c is 6.5. * Follow up:* . 3 months no labs, labs in 6 months * Z00.00 Encounter for general adult medical examination without abnormal findings* Comments:* RHM current. * R19.7 Diarrhea, unspecified* Comments:* follow up with GI. Goals 08/09/2021 - Leelee Barron M.D.* I10 Essential (primary) hypertension* Stay active and continue meds to maintain good blood pressure readings. Functional Status Functional Condition Comment Date Status Independent with all ADL's Activ e Bifocal glasses Active Independent with all IADL's Acti ve Mental Status Mental Condition Comment Date Status None Active Referrals Description No Information Available
--- OUTSIDE RECORDS SUMMARY | 2021-08-25 10:47 | CCD | Continuity of Care Document ---
Author Author Deepali BARRON M.D. Organization Unknown Address [address] [place] [address] Phone [phone] Problems Active Problems Provider Date Essential hypertension [...] by mouth every evening 30tabs I10 Luca Barron M.D. 06/10/2015 Metformin HCL ER 500mg Tablets [...] CPT Code Status Date Vaccine Lot # [id number] Given 08/09/2021 Influenza Virus Vaccine, Donald drivalent,multidose vial [id number] 59357 Given 01/13/2021 Moderna Sars-(Co vid-19) vaccine, mRNA, LNP-S, PF, 100 mcg/ 0.5 mL 44756 Given 12/16/2020 Moderna Sars-(Co vid-19) vaccine, mRNA, LNP-S, PF, 100 mcg/ 0.5 mL 90175 Given 07/27/2020 Influenza Virus Vaccine, Donald drivalent,multidose vial [id number] 82247 Given 03/06/2018 Pneumococcal Vaccine [id number] 60106 Given 08/13/2015 Zostavax 06334 Given 07/07/2015 Influenza Vaccination 95611 Given 06/10/2015 Prevnar 13 [id number] 62996 Given 08/28/2013 Influenza Vaccination 22969 Given 11/22/2009 H1N1 Vaccine 74013 Given 08/31/2009 Influenza Vaccination Vital Signs Date Vital Result Comment 08/09/2021 10:14am BP Systolic 131 mmHg BP Diastolic 54 mmHg Heart Rate 59 /min Body Temperature 97.3 F Respiratory Rate 16 /min Height 63.5 inches 5'3.50" Weight 124.25 lb O2 % BldC Oximetry 98 % Peak Expiratory Flow Rate 317 Estimated Peak Flow Rate [place] Body Weight 115 lb BMI (Body Mass [...] Flow Rate 319 Estimated Peak Flow Rate [place] Body Weight 115 lb BMI (Body Mass Index) 25.3 kg/m2 Results Test Acquired Date Facility Test Result H/L Range Note Hemoglobin A1c 08/03/[address] [facility] [address] [place] [address] [phone] Hemoglobin A1c 6.5 % High 4.8-5.6 1, 2 1 A courtesy copy of this repo rt has been sent to the patient, 2 Prediabetes: 5.7 - 6.4 Diabetes: >6.4 Glycemic control for adults with diabetes: <7.0 Procedures Date Code Description Status 04/2021 [id number] Mammogram Completed 01/24/2021 [id number] Diabetic Foot Exam Completed 2009 [id number] Bone Mineral Density Test Comple Finicity Description No Information Available Encounters Description No [...]
--- OUTSIDE RECORDS SUMMARY | 2021-08-25 10:47 | CCD | Continuity of Care Document ---
Author Author Deepali BARRON M.D. Organization Unknown Address [address] [place] [address] Phone [phone] Problems Active Problems Provider Date Essential hypertension [...] 1 by mouth every day 30tabs F41.9 Leleee Barron M.D. 021 Losartan Potassium 100mg Tablets [...] CPT Code Status Date Vaccine Lot # 53912 Given 08/09/2021 Influenza Virus Vaccine, Donald drivalent,multidose vial [id number] 56078 Given 01/13/2021 Moderna Sars-(Co vid-19) vaccine, mRNA, LNP-S, PF, 100 mcg/ 0.5 mL 12324 Given 12/16/2020 Moderna Sars-(Co vid-19) vaccine, mRNA, LNP-S, PF, 100 mcg/ 0.5 mL 85213 Given 07/27/2020 Influenza Virus Vaccine, Donald drivalent,multidose vial [id number] 12466 Given 03/06/2018 Pneumococcal Vaccine [id number] 05254 Given 08/13/2015 Zostavax 29281 Given 07/07/2015 Influenza Vaccination 76852 Given 06/10/2015 Prevnar 13 [id number] 67932 Given 08/28/2013 Influenza Vaccination 24229 Given 11/22/2009 H1N1 Vaccine 98003 Given 08/31/2009 Influenza Vaccination Vital Signs Date Vital Result Comment 08/09/2021 10:14am BP Systolic 131 mmHg BP Diastolic 54 mmHg Heart Rate 59 /min Body Temperature 97.3 F Respiratory Rate 16 /min Height 63.5 inches 5'3.50" Weight 124.25 lb O2 % BldC Oximetry 98 % Peak Expiratory Flow Rate 317 Estimated Peak Flow Rate [place] Body Weight 115 lb BMI (Body Mass [...] Flow Rate 319 Estimated Peak Flow Rate [place] Body Weight 115 lb BMI (Body Mass Index) 25.3 kg/m2 Results Test Acquired Date Facility Test Result H/L Range Note Hemoglobin A1c 08/03/[address] [facility] [address] [place] [address] [phone] Hemoglobin A1c 6.5 % High 4.8-5.6 1, 2 1 A courtesy copy of this repo rt has been sent to the patient, 2 Prediabetes: 5.7 - 6.4 Diabetes: >6.4 Glycemic control for adults with diabetes: <7.0 Procedures Date Code Description Status 04/2021 [id number] Mammogram Completed 01/24/2021 [id number] Diabetic Foot Exam Completed 2009 [id number] Bone Mineral Density Test Comple [employer] Description No Information Available Encounters Description No [...]
--- OUTSIDE RECORDS SUMMARY | 2021-08-25 10:47 | CCD | Continuity of Care Document ---
Author Author Deepali BARRON M.D. Organization Unknown Address [address] [place] [address] Phone [phone] Problems Active Problems Provider Date Essential hypertension [...] CPT Code Status Date Vaccine Lot # [id number] Given 08/09/2021 Influenza Virus Vaccine, Donald drivalent,multidose vial [id number] 86318 Given 01/13/2021 Moderna Sars-(Co vid-19) vaccine, mRNA, LNP-S, PF, 100 mcg/ 0.5 mL 61645 Given 12/16/2020 Moderna Sars-(Co vid-19) vaccine, mRNA, LNP-S, PF, 100 mcg/ 0.5 mL 96726 Given 07/27/2020 Influenza Virus Vaccine, Donald drivalent,multidose vial [id number] 27411 Given 03/06/2018 Pneumococcal Vaccine [id number] 18443 Given 08/13/2015 Zostavax 19927 Given 07/07/2015 Influenza Vaccination 29535 Given 06/10/2015 Prevnar 13 [id number] 24407 Given 08/28/2013 Influenza Vaccination 26404 Given 11/22/2009 H1N1 Vaccine 18276 Given 08/31/2009 Influenza Vaccination Vital Signs Date Vital Result Comment 08/09/2021 10:14am BP Systolic 131 mmHg BP Diastolic 54 mmHg Heart Rate 59 /min Body Temperature 97.3 F Respiratory Rate 16 /min Height 63.5 inches 5'3.50" Weight 124.25 lb O2 % BldC Oximetry 98 % Peak Expiratory Flow Rate 317 Estimated Peak Flow Rate [place] Body Weight 115 lb BMI (Body Mass [...] Flow Rate 319 Estimated Peak Flow Rate [place] Body Weight 115 lb BMI (Body Mass Index) 25.3 kg/m2 Results Test Acquired Date Facility Test Result H/L Range Note Hemoglobin A1c 08/03/[address] [facility] [address] [place] [address] [phone] Hemoglobin A1c 6.5 % High 4.8-5.6 1, 2 1 A courtesy copy of this repo rt has been sent to the patient, 2 Prediabetes: 5.7 - 6.4 Diabetes: >6.4 Glycemic control for adults with diabetes: <7.0 Procedures Date Code Description Status 04/2021 [id number] Mammogram Completed 01/24/2021 [id number] Diabetic Foot Exam Completed 2009 [id number] Bone Mineral Density Test Comple [employer] Description No Information Available Encounters Description No [...]
--- OUTSIDE RECORDS SUMMARY | 2021-08-25 10:47 | CCD | Continuity of Care Document ---
Author Author Deepali BARRON M.D. Organization Unknown Address [address] [place] [address] Phone [phone] Problems Active Problems Provider Date Essential hypertension [...] CPT Code Status Date Vaccine Lot # 52926 Given 08/09/2021 Influenza Virus Vaccine, Donald drivalent,multidose vial [id number] 57798 Given 01/13/2021 Moderna Sars-(Co vid-19) vaccine, mRNA, LNP-S, PF, 100 mcg/ 0.5 mL 45268 Given 12/16/2020 Moderna Sars-(Co vid-19) vaccine, mRNA, LNP-S, PF, 100 mcg/ 0.5 mL 07582 Given 07/27/2020 Influenza Virus Vaccine, Donald drivalent,multidose vial [id number] 72829 Given 03/06/2018 Pneumococcal Vaccine [id number] 84885 Given 08/13/2015 Zostavax 79081 Given 07/07/2015 Influenza Vaccination 61722 Given 06/10/2015 Prevnar 13 [id number] 50574 Given 08/28/2013 Influenza Vaccination 96888 Given 11/22/2009 H1N1 Vaccine 16564 Given 08/31/2009 Influenza Vaccination Vital Signs Date Vital Result Comment 08/09/2021 10:14am BP Systolic 131 mmHg BP Diastolic 54 mmHg Heart Rate 59 /min Body Temperature 97.3 F Respiratory Rate 16 /min Height 63.5 inches 5'3.50" Weight 124.25 lb O2 % BldC Oximetry 98 % Peak Expiratory Flow Rate 317 Estimated Peak Flow Rate [place] Body Weight 115 lb BMI (Body Mass [...] Flow Rate 319 Estimated Peak Flow Rate [place] Body Weight 115 lb BMI (Body Mass Index) 25.3 kg/m2 Results Test Acquired Date Facility Test Result H/L Range Note Hemoglobin A1c 08/03/[address] [facility] [address] [place] [address] [phone] Hemoglobin A1c 6.5 % High 4.8-5.6 1, 2 1 A courtesy copy of this repo rt has been sent to the patient, 2 Prediabetes: 5.7 - 6.4 Diabetes: >6.4 Glycemic control for adults with diabetes: <7.0 Procedures Date Code Description Status 04/2021 [id number] Mammogram Completed 01/24/2021 [id number] Diabetic Foot Exam Completed 2009 [id number] Bone Mineral Density Test Comple [employer] Description No Information Available Encounters Description No [...]
--- OUTSIDE RECORDS SUMMARY | 2021-08-25 10:48 | CCD | Continuity of Care Document ---
Author Author Deepali LUNA F.N.P. Organization Unknown Address [address], [address] [place] [address] Phone [phone] Care Team Providers Care Linecasting Machine Keyboard Operator Name Role Phone Leelee Gomez MD [facility] [phone] Problems Description No Information Available Social History Type Date Description Comments Sex Unknown Tobacco Use Start: Unknown End: Unknown Former Cigarette Smo ker Quit 1987 ETOH Use Social Drinker Sun Exposure minimum amount of sun exposure Sun Exposure Has never used tanning bed Sun Exposure Has experienced blistering from sunburns Sun Exposure Uses 15-30 SPF Allergies, Adverse Reactions, Alerts Active Allergies Reaction Severity Comments Date sulfa 06/20/2020 Medications Active Medications SIG Qnty Indications Ordering Provide r Date Mupirocin 2% Ointment apply to scalp sparingly twice a day 22gm R23.4 Grecia Luna, F.N.P. 06/05/2021 Efudex 5% Cream apply to scalp sparingly twice a day 40gm Grecia Luna, F.N.P. 2020 Carvedilol Unknown Losartan Potassium Unknown Spironolactone Unknown Chlorthalidone Unknown Metformin HCL Unknown Atorvastatin Calcium Unknown Magnesium Unknown Vitamin D Unknown Aspir-81 Unknown Dorzolamide HCL/Timolol Maleate 22.3-6.8mg/ml Solution Instill One Drop In The Right Eye Two Times A Day as Directed Unknown Biotin Unknown History Medications Mupirocin 2% Ointment apply to scalp sparingly twice a day 22gm R23.4 Laxmi AliceaNJesusitaP. 06/05/2021 - 06/05/2021 Keflex 500mg Capsules 1 by mouth twice a day 14caps Hernnado AliceaP. 2020 - 03/20/2021 Immunizations Description No Information Available Vital Signs Date Vital Result Comment 06/05/2021 11:03am BP Systolic 122 mmHg BP Diastolic 82 mmHg Weight 136.00 lb Respiratory Rate 18 /min 04/05/2021 12:06pm BP Systolic 136 mmHg BP Diastolic 74 mmHg Weight 140.00 lb Respiratory Rate 18 /min Results Test Acquired Date Facility Test Result H/L Range Note Anaerobic And Aerobic Culture 06/05/2021 [facility] Anaerobic Culture Final report 1, 2 Result 1 See Comment: 3 Aerobic Culture Final report Abnormal 4 Result 1 See Comment: Abnormal 5 Antimicrobial Susceptibility See Comment: 6 Laboratory test finding 06/05/2021 [facility] PDF [id number] SEE IMAGE Anaerobic And Aerobic Culture 03/20/2021 [facility] Anaerobic Culture Final report 7, 8 Result 1 See Comment: 9 Aerobic Culture Final report 10 Result 1 Skin mio isola <SEE NOTE> 11 Laboratory test finding 03/20/2021 [facility] PDF [id number] SEE IMAGE BXDX Pathology 02/14/2021 [facility] L Icd9 Code ICD9 Code: L57.0 PDFReport SEE IMAGE Laboratory test finding 02/14/[address] [address] [phone] Culture Bacterial <pending> 1 SRC:Scalp 2 Source of Specimen: Scalp 3 Source of Specimen: Scalp No anaerobic growth in 72 hours. 4 Source of Specimen: Scalp 5 Source of Specimen: Scalp Staphylococcus schleiferi Heavy growth Based on susceptibility to oxacillin this isolate would be susceptible to: *Penicillinase-stable penicillins, such as: Cloxacillin, Dicloxacillin, Nafcillin *Beta-lactam combination agents, such as: Amoxicillin-clavulanic acid, Ampicillin-sulbactam, Piperacillin-tazobactam *Oral cephems, such as: Cefaclor, Cefdinir, Cefpodoxime, Cefprozil, Cefuroxime, Cephalexin, Loracarbef *Parenteral cephems, such as: Cefazolin, Cefepime, Cefotaxime, Cefotetan, Ceftaroline, Ceftizoxime, Ceftriaxone, Cefuroxime *Carbapenems, such as: Doripenem, Ertapenem, Imipenem, Meropenem Most isolates of Staphylococcus sp. produce a beta-lactamase enzyme rendering them resistant to penicillin. Please contact the laboratory if penicillin is being considered for therapy. 6 Source of Specimen: Scalp S = Susceptible; I = Intermediate; R = Resistant P = Positive; N = Negative MICS are expressed in micrograms per mL Antibiotic RSLT#1 RSLT#2 RSLT#3 RSLT#4 Ciprofloxacin S Clindamycin S Erythromycin S Gentamicin S Levofloxacin S Oxacillin S Rifampin S Tetracycline S Trimethoprim/Sulfa S Vancomycin S 7 See progress note 03-28-21 8 Source of Specimen: scalp 9 Source of Specimen: scalp No anaerobic growth in 72 hours. 10 Source of Specimen: scalp 11 Skin mio isolated Source of Specimen: scalp 12 Will start with warm tyrone s twice daily x 1 week to loosen thicker scale then if less will start Efudex cream BID 13 ICD9 Code: L57.0 Protocol: shave Clinical Text: SCC Final Diagnosis: ACTINIC KERATOSIS, HYPERTROPHIC. Gross Text: The specimen grossly consisted of small fragments. In aggregate these measured about 4 mm. All of the tissue was submitted for processing. Microscopic Description: Markedly thickened, partially parakeratotic horn overlies epithelium showing partial thickness keratinocytic atypia. There is a background of solar elastosis. CPT: 80019*1 Procedures Date Code Description Status 06/05/2021 89071 Office/Outpatient Established Mo d MDM 30-39 Min Completed 04/05/2021 91572 Office/Outpatient Established Lo w MDM 20-29 Min Completed 03/28/2021 59165 Office/Outpatient Established Mo d MDM 30-39 Min Completed 03/20/2021 08003 Office/Outpatient Established Mo d MDM 30-39 Min Completed 03/09/2021 15681 Office/Outpatient Established Mo d MDM 30-39 Min Completed 02/14/2021 35212 Office/Outpatient Established Mo d MDM 30-39 Min Completed 02/14/2021 71506 Destruction Of Lesion First Comp leted 02/14/2021 94920 Shave Biopsy Of Skin, Single Les ion Completed Medical Devices Description No Information Available Encounters Type Date Location Provider Dx Diagnosis Office Visit 06/05/2021 11:00a Main Office Grecia O'han, F.N.P. L57.0 Actinic keratosis R20.8 Other disturbances of skin s ensation L08.9 Local infection of the skin and subcutaneous tissue, [facility] Office Visit 04/05/2021 12:15p Main Office Grecia O'han, F.N.P. L57.0 Actinic keratosis R20.8 Other disturbances of skin s ensation Office Visit 03/28/2021 9:30a Main Office Grecia O'han, F.N.P. L57.0 Actinic keratosis R20.8 Other disturbances of skin s ensation Office Visit 03/20/2021 11:45a Main Office Grecia O'han, F.N.P. L57.0 Actinic keratosis Office Visit 03/09/2021 12:30p Main Office Grecia O'han, F.N.P. L57.0 Actinic keratosis L08.9 Local infection of the skin and subcutaneous tissue, [facility] Office Visit 02/14/2021 10:15a Main Office Grecia O'han, F.N.P. D48.5 Neoplasm of uncertain behavior of skin L08.9 Local infection of the skin and subcutaneous tissue, [facility] L57.0 Actinic keratosis D22.5 Melanocytic nevi of trunk L82.1 Other seborrheic keratosis L81.4 Other melanin hyperpigmentat ion L85.9 Epidermal thickening, unspec ified Z85.828 Personal history of other ma lignant neoplasm of skin Z08 Encntr for follow-up exam af ter trtmt for malignant neoplasm Assessments Date Code Description Provider 06/05/2021 L57.0 Actinic keratosis Grecia O'br iecatrachita, F.N.P. 06/05/2021 R20.8 Other disturbances of skin sensa tion Grecia O'han, F.N.P. 06/05/2021 L08.9 Local infection of t he skin and subcutaneous tissue, unspecified Grecia O'han, F.N.P. 04/05/2021 L57.0 Actinic keratosis Grecia O'br ien, F.N.P. 04/05/2021 R20.8 Other disturbances of skin sensa tion Grecia O'han, F.N.P. 03/28/2021 L57.0 Actinic keratosis Grecia O'br ien, F.N.P. 03/28/2021 R20.8 Other disturbances of skin sensa tion Grecia O'han, F.N.P. 03/20/2021 L57.0 Actinic keratosis Grecia O'br ien, F.N.P. 03/09/2021 L57.0 Actinic keratosis Grecia O'br ien, F.N.P. 03/09/2021 L08.9 Local infection of t he skin and subcutaneous tissue, unspecified Grecia O'han, F.N.P. 02/14/2021 D48.5 Neoplasm of uncertain behavior o f skin Grecia O'han, F.N.P. 02/14/2021 L08.9 Local infection of t he skin and subcutaneous tissue, unspecified Grecia O'han, F.N.P. 02/14/2021 L57.0 Actinic keratosis Grecia O'br ien, F.N.P. 02/14/2021 D22.5 Melanocytic nevi of trunk Hilda Bowman'han, F.N.P. 02/14/2021 L82.1 Other seborrheic keratosis Ngoc rine Colby'han, F.N.P. 02/14/2021 L81.4 Other melanin hyperpigmentation Grecia Bowman'han, F.N.P. 02/14/2021 L85.9 Epidermal thickening, unspecifie d Grecia Bowman'han, F.N.P. 02/14/2021 Z85.828 Personal history of other malign ant neoplasm of skin Grecia Luna, F.N.P. 02/14/2021 Z08 Encounter for follow -up examination after completed treatment for malignant neoplasm Grecia Luna, F.N.P. Plan of Treatment Future Appointment(s):* 06/15/2021 9:15 am - Laxmi AliceaN.P. at Main Office * 08/17/2021 10:45 am - Laxmi AliceaN.P. at Main Office 06/05/2021 - Deepika Alicea.N.P.* L57.0 Actinic keratosis* Comments:* All but one area has healed well. Will check cultureStart Mupirocin 2% BID x 10 days.Aquaphor or Vaseline PRN Call with any problems. * R20.8 Other disturbances of skin sensation* Comments:* See above. * L08.9 Local infection of the skin and subcutaneous tissue, unspecified* Comments:* Culture taken today * Follow up:* 10 days - lesion on scalp fu Functional Status Description No Information Available Mental Status Description No Information Available Referrals Description No Information Available
--- OUTSIDE RECORDS SUMMARY | 2021-08-25 10:48 | CCD | Continuity of Care Document ---
Author Author Deepali BARRON M.D. Organization Unknown Address [address] [place] [address] Phone [phone] Problems Active Problems Provider Date Essential hypertension [...] 021 Losartan Potassium 100mg Tablets take one tablet by mouth every day 30tabs I10 Leelee Barron M. D. 06/10/2015 Metformin HCL ER 500mg Tablets ER [...] every morning Ernesto Casey MD Atorvastatin Calcium 80mg Tablets take one tablet by mouth every [...] CPT Code Status Date Vaccine Lot # 71056 Given 01/13/2021 Moderna Sars-(Co vid-19) vaccine, mRNA, LNP-S, PF, 100 mcg/ 0.5 mL [id number] Given 12/16/2020 Moderna Sars-(Co vid-19) vaccine, mRNA, LNP-S, PF, 100 mcg/ 0.5 mL 55854 Given 07/27/2020 Influenza Virus Vaccine, Donald drivalent,multidose vial [id number] 70279 Given 03/06/2018 Pneumococcal Vaccine [id number] 82484 Given 08/13/2015 Zostavax 10371 Given 07/07/2015 Influenza Vaccination 43118 Given 06/10/2015 Prevnar 13 [id number] 60991 Given 08/28/2013 Influenza Vaccination 51329 Given 11/22/2009 H1N1 Vaccine 13970 Given 08/31/2009 Influenza Vaccination Vital Signs Date Vital Result Comment 01/24/2021 10:22am BP Systolic 146 mmHg BP Diastolic 56 mmHg BP Systolic Recheck 129 mmHg recheck BP Diastolic Recheck 67 mmHg recheck Heart Rate 66 /min Body Temperature 97.1 F Respiratory Rate 16 /min Height 63.5 inches 5'3.50" Weight 145.12 lb O2 % BldC Oximetry 98 % Peak Expiratory Flow Rate 319 Estimated Peak Flow Rate [place] Body Weight 115 lb BMI (Body Mass Index) 25.3 kg/m2 12/15/2020 1:47pm BP Systolic 170 mmHg BP Diastolic 83 mmHg BP Systolic Recheck 159 mmHg BP Diastolic Recheck 72 mmHg Heart Rate 65 /min Body Temperature 96.8 F Respiratory Rate 16 /min Height 63.5 inches 5'3.50" Weight 146.38 lb O2 % BldC Oximetry 97 % Peak Expiratory Flow Rate 319 Estimated Peak Flow Rate [place] Body Weight 115 lb BMI (Body Mass Index) 25.5 kg/m2 Results Test Acquired Date Facility Test Result H/L Range Note Hemoglobin A1c 08/03/[address] [facility] [address] [place] [address] [phone] Hemoglobin A1c 6.5 % High 4.8-5.6 1, 2 1 A courtesy copy of this repo rt has been sent to the patient, 2 Prediabetes: 5.7 - 6.4 Diabetes: >6.4 Glycemic control for adults with diabetes: <7.0 Procedures Date Code Description Status 01/24/2021 [id number] Diabetic Foot Exam Completed 04/14/2020 [id number] Mammogram Completed 2009 [id number] Bone Mineral Density Test Comple Chatous Description No Information Available Encounters Description No Information Available Assessments Description No Information Available Plan of Treatment Future Appointment(s):* 08/09/2021 10:00 am - Leelee Barron M.D. at Main Office 01/24/2021 - Leelee Barron M.D.* I10 Essential (primary) hypertension * E78.2 Mixed hyperlipidemia* Comments:* continue meds. * Z85.828 Personal history of other malignant neoplasm of skin* Comments:* scalp, doing well, * E11.42 Type 2 diabetes mellitus with diabetic polyneuropathy* Follow up:* . * All * Comments:* Begin with a half tablet of Lexapro x2-3 weeks. Recomended PT for left leg paresthesia, she will use the order she got from the ED. Goals 01/24/2021 - Leelee Barron M.D.* I10 Essential (primary) hypertension* Stay active and continue meds to maintain good blood pressure readings. Functional Status Functional Condition Comment Date Status Independent with all ADL's Activ e Bifocal glasses Active Independent with all IADL's Acti ve Mental Status Mental Condition Comment Date Status None Active Referrals Description No Information Available
--- OUTSIDE RECORDS SUMMARY | 2021-08-25 10:48 | CCD | Continuity of Care Document ---
Author Author Deepali LUNA F.N.P. Organization Unknown Address [address], [address] [place] [address] Phone [phone] Care Team Providers Care Oncology Account Specialist Name Role Phone Leelee Gomez MD [facility] [phone] Problems Description No Information Available Social History [...] to scalp sparingly twice a day 40gm Grceia Luna, F.N.P. 2020 Carvedilol Unknown Losartan Potassium Unknown Spironolactone Unknown Chlorthalidone Unknown Metformin HCL Unknown Atorvastatin Calcium Unknown Magnesium Unknown Vitamin D Unknown Aspir-81 Unknown Dorzolamide HCL/Timolol Maleate 22.3-6.8mg/ml Solution Instill One Drop In The Right Eye Two Times A Day as Directed Unknown Biotin Unknown History Medications Mupirocin 2% Ointment apply to scalp sparingly twice a day 22gm R23.4 Hernando AliceaP. 06/05/2021 - 06/05/2021 Keflex 500mg Capsules 1 by mouth twice a day 14caps Hernando AliceaP. 2020 - 03/20/2021 Immunizations Description No Information Available Vital Signs Date Vital Result Comment 06/05/2021 11:03am BP Systolic 122 mmHg BP Diastolic 82 mmHg Weight 136.00 lb Respiratory Rate 18 /min 04/05/2021 12:06pm BP Systolic 136 mmHg BP Diastolic 74 mmHg Weight 140.00 lb Respiratory Rate 18 /min Results Test Acquired Date Facility Test Result H/L Range Note Laboratory test finding 06/05/2021 [facility] Aerobic Bacterial Culture <pending> Anaerobic And Aerobic Culture 06/05/2021 [facility] Anaerobic Culture Final report 1, 2 Result 1 See Comment: 3 Aerobic Culture Final report Abnormal 4 Result 1 See Comment: Abnormal 5 Antimicrobial Susceptibility See Comment: 6 Laboratory test finding 06/05/2021 [facility] PDF [id number] SEE IMAGE Anaerobic And Aerobic Culture 03/20/2021 [facility] Anaerobic Culture Final report 7, 8 Result 1 See Comment: 9 Aerobic Culture Final report 10 Result 1 Skin mio isola <SEE NOTE> 11 Laboratory test finding 03/20/2021 [facility] PDF [id number] SEE IMAGE BXDX Pathology 02/14/2021 [facility] Icd9 Code ICD9 Code: L57.0 PDFReport SEE IMAGE Laboratory test finding 02/14/[address] [address] [phone] Culture Bacterial <pending> 1 SRC:Scalp 2 Source [...] S Vancomycin S 7 See progress note 5-25-21 8 Source of Specimen: scalp 9 Source [...] is a background of solar elastosis. CPT: 49860*1 Procedures Date Code Description Status 06/05/2021 95513 Office/Outpatient Established Mo d MDM 30-39 Min Completed 04/05/2021 35845 Office/Outpatient Established Lo w MDM 20-29 Min Completed 03/28/2021 70482 Office/Outpatient Established Mo d MDM 30-39 Min Completed 03/20/2021 01736 Office/Outpatient Established Mo d MDM 30-39 Min Completed 03/09/2021 92003 Office/Outpatient Established Mo d MDM 30-39 Min Completed 02/14/2021 00392 Office/Outpatient Established Mo d MDM 30-39 Min Completed 02/14/2021 79846 Destruction Of Lesion First Comp leted 02/14/2021 46301 Shave Biopsy Of Skin, Single Les ion Completed Medical Devices Description No Information Available Encounters Type Date Location Provider Dx Diagnosis Office Visit 06/05/2021 11:00a Main Office Grecia O'han, F.N.P. L57.0 Actinic keratosis R20.8 Other disturbances of skin s ensation L08.9 Local infection of the skin and subcutaneous tissue, [facility] Office Visit 04/05/2021 12:15p Main Office Grecia [...] [facility] 02/14/2021 10:15a Main Office Grecia O'han, F.N.P. D48.5 Neoplasm of uncertain behavior of skin L08.9 Local infection of the skin and subcutaneous tissue, [facility] L57.0 Actinic keratosis D22.5 Melanocytic nevi of trunk L82.1 Other seborrheic keratosis L81.4 Other melanin hyperpigmentat ion L85.9 Epidermal thickening, unspec ified Z85.828 Personal history of other ma lignant neoplasm of skin Z08 Encntr for follow-up exam af ter trtmt for malignant neoplasm Assessments Date Code Description Provider 06/05/2021 L57.0 Actinic keratosis Grecia O'br ien, F.N.P. 06/05/2021 R20.8 Other disturbances of skin [...] F.N.P. 02/14/2021 D22.5 Melanocytic nevi of trunk Cather yohan O'han, F.N.P. 02/14/2021 L82.1 Other seborrheic keratosis Ngoc rine O'han, F.N.P. 02/14/2021 L81.4 Other melanin hyperpigmentation Grecia O'han, F.N.P. 02/14/2021 L85.9 Epidermal thickening, unspecifie d Grecia O'han, F.N.P. 02/14/2021 Z85.828 Personal history of other malign ant neoplasm of skin Grecia O'han, F.N.P. 02/14/2021 Z08 Encounter for follow -up examination after completed treatment for malignant neoplasm Katie Alicea Plan of Treatment Future Appointment(s):* 06/15/2021 9:15 am - Katie Alicea at Main Office * 08/17/2021 10:45 am - Katie Alicea at Main Office 06/05/2021 - Katie Alicea* L57.0 Actinic keratosis* Comments:* All but one [...]
--- OUTSIDE RECORDS SUMMARY | 2021-08-25 10:48 | CCD | Continuity of Care Document ---
Author Author Deepali LUNA F.N.P. Organization Unknown Address [address], [address] [place] [address] Phone [phone] Care Team Providers Care Spray Gun Striper Name Role Phone Leelee Gomez MD [facility] [phone] Problems Description No Information Available Social History [...] Bacterial Culture <pending> Anaerobic And Aerobic Culture 03/20/2021 [facility] Anaerobic Culture Final report 1, 2 Result 1 See Comment: 3 Aerobic Culture Final report 4 Result 1 Skin mio isola <SEE NOTE> 5 Laboratory test finding 03/20/2021 [facility] PDF [id number] SEE IMAGE BXDX Pathology 02/14/2021 [facility] L Icd9 Code ICD9 Code: L57.0 6, 7 PDFReport SEE IMAGE Laboratory test finding 02/14/2021 [place] [address] [phone] Culture Bacterial <pending> 1 See progress note 03-28-21 2 Source of Specimen: scalp 3 Source of Specimen: scalp No anaerobic growth in 72 hours. 4 Source of Specimen: scalp 5 Skin mio isolated Source of Specimen: scalp 6 Will start with warm tyrone s twice daily x 1 week to loosen thicker scale then if less will start Efudex cream BID 7 ICD9 Code: L57.0 Protocol: shave Clinical Text: SCC Final Diagnosis: ACTINIC KERATOSIS, HYPERTROPHIC. Gross Text: The specimen grossly consisted of small fragments. In aggregate these measured about 4 mm. All of the tissue was submitted for processing. Microscopic Description: Markedly thickened, partially parakeratotic horn overlies epithelium showing partial thickness keratinocytic atypia. There is a background of solar elastosis. CPT: 66239*1 Procedures Date Code Description Status 06/05/2021 21552 Office/Outpatient Established Mo d MDM 30-39 Min Completed 04/05/2021 35727 Office/Outpatient Established Lo w MDM 20-29 Min Completed 03/28/2021 72236 Office/Outpatient Established Mo d MDM 30-39 Min Completed 03/20/2021 53783 Office/Outpatient Established Mo d MDM 30-39 Min Completed 03/09/2021 06554 Office/Outpatient Established Mo d MDM 30-39 Min Completed 02/14/2021 66520 Office/Outpatient Established Mo d MDM 30-39 Min Completed 02/14/2021 52217 Destruction Of Lesion First Comp leted 02/14/2021 26821 Shave Biopsy Of Skin, Single Les ion Completed Medical Devices Description No Information Available Encounters Type Date Location Provider Dx Diagnosis Office Visit 06/05/2021 11:00a Main Office Grecia Bowman'han, F.N.P. L57.0 Actinic keratosis R20.8 Other disturbances of skin s ensation L08.9 Local infection of the skin and subcutaneous tissue, [facility] Office Visit 04/05/2021 12:15p Main Office Grecia Bowman'han, F.N.P. L57.0 Actinic keratosis R20.8 Other disturbances of skin s ensation Office Visit 03/28/2021 9:30a Main Office Grecia Bowman'han, F.N.P. L57.0 Actinic keratosis R20.8 Other disturbances of skin s ensation Office Visit 03/20/2021 11:45a Main Office Grecia Bowman'han, F.N.P. L57.0 Actinic keratosis Office Visit 03/09/2021 12:30p Main Office Grecia O'han, F.N.P. L57.0 Actinic keratosis L08.9 Local infection of the skin and subcutaneous tissue, [facility] Office Visit 02/14/2021 10:15a Main Office Grecia Bowman'han, F.N.P. D48.5 Neoplasm of uncertain behavior of skin L08.9 Local infection of the skin and subcutaneous tissue, [facility] L57.0 Actinic keratosis D22.5 Melanocytic nevi of [...] 02/14/2021 D22.5 Melanocytic nevi of trunk Cather ine O'han, F.N.P. 02/14/2021 L82.1 Other seborrheic keratosis Ngoc rine O'han, F.N.P. 02/14/2021 L81.4 Other melanin hyperpigmentation Katie Alicea 02/14/2021 L85.9 Epidermal thickening, unspecifie d Felicia Alicea. 02/14/2021 Z85.828 Personal history of other malign ant neoplasm of skin Katie Alicea 02/14/2021 Z08 Encounter for follow -up examination after completed treatment for malignant neoplasm Katie Alicea Plan of Treatment Future Appointment(s):* 06/15/2021 9:15 am - Laxmi AliceaN.P. at Main Office * 08/17/2021 10:45 am - Laxmi AliceaNJesusitaP. at Main Office 06/05/2021 - Laxmi AliceaNJesusitaPJesusita* L57.0 Actinic keratosis* Comments:* All but one [...]
--- OUTSIDE RECORDS SUMMARY | 2021-08-25 10:48 | CCD | Continuity of Care Document ---
Author Author Deepali LUNA F.N.P. Organization Unknown Address [address], [address] [place] [address] Phone [phone] Care Team Providers Care Chief Maintenance Supervisor Name Role Phone Leelee Gomez MD [facility] [phone] Problems Description No Information Available Social History Type Date Description Comments Sex Unknown Tobacco Use Start: Unknown End: Unknown Former Cigarette Smo ker Quit 1987 ETOH Use Social Drinker Sun Exposure minimum amount of sun exposure Sun Exposure Has never used tanning bed Sun Exposure Has experienced blistering from sunburns Sun Exposure Uses 15-30 SPF Allergies, Adverse Reactions, Alerts Active Allergies Criticality Reaction | Severity Comments Date sulfa Unable to assess criticality 06/20/2020 Medications Active Medications SIG Qnty Indications Ordering Provide r Date Mupirocin 2% Ointment apply to scalp sparingly twice a day 22gm R23.4 Grecia Luna, F.N.P. 06/05/2021 Efudex 5% Cream apply to scalp sparingly twice a day 40gm Grecia Luna, F.N.P. 2020 Magnesium Unknown Creon 3000-9500Unit Caps DR Chavez Unknown Biotin Unknown Dorzolamide HCL/Timolol Maleate 22.3-6.8mg/ml Solution Instill One Drop In The Right Eye Two Times A Day as Directed Unknown Aspir-81 Unknown Vitamin D Unknown Atorvastatin Calcium Unknown Metformin HCL Unknown Chlorthalidone Unknown Spironolactone Unknown Losartan Potassium Unknown Carvedilol Unknown History Medications Cephalexin 500mg Tablets 1 by mouth twice a day x 10 days 20tabs Deepika Alicea.N.P. 2020 - 06/15/2021 Mupirocin 2% Ointment apply to scalp sparingly twice a day 22gm R23.4 Grecia Luna F.N.P. 06/05/2021 - 06/05/2021 Keflex 500mg Capsules 1 by mouth twice a day 14caps Grecia Luna F.N.P. 2020 - 03/20/2021 Immunizations Description No Information Available Vital Signs Date Vital Result Comment 06/26/2021 9:37am BP Systolic 116 mmHg BP Diastolic 72 mmHg Weight 131.00 lb Height 63 inches 5'3" BMI (Body Mass Index) 23.2 kg/m2 06/15/2021 9:11am BP Systolic 130 mmHg BP Diastolic 60 mmHg Weight 131.00 lb Height 63 inches 5'3" BMI (Body Mass Index) 23.2 kg/m2 Results Test Acquired Date Facility Test Result H/L Range Note Anaerobic And Aerobic Culture 06/05/2021 [facility] Anaerobic Culture Final report 1, 2 Result 1 See Comment: 3 Aerobic Culture Final report Abnormal 4 Result 1 See Comment: Abnormal 5 Antimicrobial Susceptibility See Comment: 6 Laboratory test finding 06/05/2021 [facility] PDF [id number] SEE IMAGE Anaerobic And Aerobic Culture 03/20/2021 [facility] Anaerobic Culture Final report 7, 8 Result 1 See Comment: 9 Aerobic Culture Final report 10 Result 1 Skin mio isola <SEE NOTE> 11 Laboratory test finding 03/20/2021 [facility] PDF [id number] SEE IMAGE BXDX Pathology 02/14/2021 [facility] L Icd9 Code ICD9 Code: L57.0 PDFReport SEE IMAGE Laboratory test finding 02/14/[address] [address] [phone] Culture Bacterial <pending> 1 SRC:Scalp 2 Source [...] is a background of solar elastosis. CPT: 98580*1 Procedures Date Code Description Status 06/26/2021 66282 Office/Outpatient Established Lo w MDM 20-29 Min Completed 06/15/2021 36152 Office/Outpatient Established Mo d MDM 30-39 Min Completed 06/05/2021 60438 Office/Outpatient Established Mo d MDM 30-39 Min Completed 04/05/2021 91138 Office/Outpatient Established Lo w MDM 20-29 Min Completed 03/28/2021 62779 Office/Outpatient Established Mo d MDM 30-39 Min Completed 03/20/2021 33129 Office/Outpatient Established Mo d MDM 30-39 Min Completed 03/09/2021 14319 Office/Outpatient Established Mo d MDM 30-39 Min Completed 02/14/2021 08189 Office/Outpatient Established Mo d MDM 30-39 Min Completed 02/14/2021 75173 Destruction Of Lesion First Comp leted 02/14/2021 21322 Shave Biopsy Of Skin, Single Les ion Completed Medical Devices Description No Information Available Encounters Type Date Location Provider Dx Diagnosis Office Visit 06/26/2021 9:30a Main Office Grecia Bowman'han, F.N.P. B95.7 Oth staphylococcus as the cause of diseases classd elswhr Office Visit 06/15/2021 9:15a Main Office Grecia Bowman'han, F.N.P. B95.7 Oth staphylococcus as the cause of diseases classd elsr R20.8 Other disturbances of skin s ensation Office Visit 06/05/2021 11:00a Main Office Grecia O'han, F.N.P. L57.0 Actinic keratosis R20.8 Other disturbances of skin s ensation L08.9 Local infection of the skin and subcutaneous tissue, [facility] Office Visit 04/05/2021 12:15p Main Office Grecia [...] infection of the skin and subcutaneous tissue, [facility] Office Visit 02/14/2021 10:15a Main Office Grecia [...] skin Z08 Encntr for follow-up exam af [facility] trt for malignant neoplasm Assessments Date Code Description Provider 06/26/2021 B95.7 Other staphylococcus as the cause of diseases classified elsewhere Grecia O'han, F.N.P. 06/15/2021 B95.7 Other staphylococcus as the cause of diseases classified elsewhere Grecia O'han, F.N.P. 06/15/2021 R20.8 Other disturbances of skin sensa tion Grecia O'han, F.N.P. 06/05/2021 L57.0 Actinic keratosis Grecia O'br ien, [...] he skin and subcutaneous tissue, unspecified Grecia Bowman'han, F.N.P. 02/14/2021 D48.5 Neoplasm of uncertain behavior o f skin Grecia Luna, F.N.P. 02/14/2021 L08.9 Local infection of t he skin and subcutaneous tissue, unspecified Grecia Bowman'han, F.N.P. 02/14/2021 L57.0 Actinic keratosis Grecia Bowman'donovan bergmann, F.N.P. 02/14/2021 D22.5 Melanocytic nevi of trunk Kaylahrc yohan Luna, F.N.P. 02/14/2021 L82.1 Other seborrheic keratosis Ngoc antoine Luna, F.N.P. 02/14/2021 L81.4 Other melanin hyperpigmentation Grecia Luna, F.N.P. 02/14/2021 L85.9 Epidermal thickening, unspecifie d Grecia Luna, F.N.P. 02/14/2021 Z85.828 Personal history of other malign ant neoplasm of skin Grecia Luna, F.N.P. 02/14/2021 Z08 Encounter for follow -up examination after completed treatment for malignant neoplasm Grecia Luna, F.N.P. Plan of Treatment Future Appointment(s):* 08/17/2021 10:45 am - Grecia Luna, F.N.P. at Main Office 06/26/2021 - Grecia Luna, F.N.P.* B95.7 Other staphylococcus as the cause of diseases classified elsewhere* Comments:* Much betterDC Mupirocin 2% ointment. Start Vaseline once daily to area remaining. If any thick areas start to return instructed to restart warm compresses * Follow up:* Has appointment. Functional Status Description No Information Available Mental Status Description No Information Available Referrals Description No Information Available
--- OUTSIDE RECORDS SUMMARY | 2021-08-25 10:48 | CCD | Continuity of Care Document ---
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, right eye, mild stage Leo Navarro MD Onset: 11/13/2019 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 Anthony Delong III, MD Onset: 12/02/2019 Vitreous degeneration Bolivar Navarro MD Onset: 12/16/2019 Social History Type Date Description Comments Sex Unknown Tobacco Use Start: Unknown End: Unknown Patient is a former smoker Smoking Status Reviewed: 07/13/21 Patient is a former smoker Allergies, Adverse Reactions, Alerts Active Allergies Criticality Reaction | Severity Comments Date Sulfa Antibiotics Unable to assess criticality 10/22/2019 Medications Active Medications SIG Qnty Indications Ordering Provide r Date Cosopt 22.3-6.8mg/ml Solution instill one drop into right eye twice a day as directed 20ml H40.31x1 Anthony Delong III, MD 01/11/2020 Spironolactone 25mg Tablets Take One Tablet By Mouth Once Daily Unknown Metformin HCL ER 500mg Tablets ER 24HR Take Two Tablets By Mouth Every Day With Largest Meal Unknown Magnesium Oxide 400(241.3Mg) mg Ta blets Take One Tablet By Mouth Twice A Day Unknown Losartan Potassium 100mg Tablets Take One Tablet By Mouth Every Day Unknown Chlorthalidone 25mg Tablets Take 1/2 Tablet By Mouth Once Daily Unknown Carvedilol 25mg Tablets Take One Tablet By Mouth Twice A Day Unknown Atorvastatin Calcium 80mg Tablets Take One Tablet By Mouth AT Bedtime Unknown Tizanidine HCL 4mg Tablets Unknown Suprep Bowel Prep Kit 17.5-3.13-1.6GM/177ML Solution Eloise Ellington MD Immunizations Description No Information Available Vital Signs Date Vital Result Comment 07/17/2021 3:24pm Intraocular Pressure Right Eye 13 mmHg Ap Intraocular Pressure Left Eye 14 mmHg Ap 03/06/2021 12:42pm Intraocular Pressure Right Eye 14 mmHg Ap 12:42 PM Intraocular Pressure Left Eye 15 mmHg Ap 12:42 P M Recheck IOP Left Eye 13 Ap post tx 01:46 PM Results Description No Information Available Procedures Date Code Description Status 07/17/2021 87079 Office/Outpatient Established Lo w MDM 20-29 Min Completed 07/17/2021 34454 Gonioscopy W/Med Diag Eval Compl eted 03/06/2021 94468 Discission Sec Mem/Ant Hyaloid;L aser Surgery OS Completed Medical Devices Description No Information Available Encounters Type Date Location Provider Dx Diagnosis Office Visit 07/17/2021 3:15p Main Office Anthony Delong I II 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, right eye, mild stage Z96.1 Presence of intraocular lens Assessments Date Code Description Provider 07/17/2021 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 , right eye, mild stage Anthony Delong III, MD 07/17/2021 Z96.1 Presence of intraocular lens Ant kristie Delong III, MD 03/06/2021 H26.492 Other secondary cataract, left e ye Anthony Delong III, MD Plan of Treatment Future Appointment(s):* 04/16/2022 1:00 pm - Anthony Delong III, MD at Main Office 07/17/2021 - F DeVincentis III MD* 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 * Follow up:* 6 mo iop, gonio, OCT, non dilate with Dr. Tran in [place]. 9-12 mo iop, gonio OCT, non dilate with [facility] [place]an [place] comfortable with doing gonioscopy. * Z96.1 Presence of intraocular lens* Comments:* Monitor Functional Status Description No Information Available Mental Status Description No Information Available Referrals Description No Information Available"
--- OUTSIDE RECORDS SUMMARY | 2021-08-25 10:48 | CCD | Continuity of Care Document ---
Author Author Depeali BARRON M.D. Organization Unknown Address [address] [place] [address] Phone [phone] Problems Active Problems Provider Date Essential hypertension [...] CPT Code Status Date Vaccine Lot # [id number] Given 08/09/2021 Influenza Virus Vaccine, Donald drivalent,multidose vial [id number] 34944 Given 01/13/2021 Moderna Sars-(Co vid-19) vaccine, mRNA, LNP-S, PF, 100 mcg/ 0.5 mL 73994 Given 12/16/2020 Moderna Sars-(Co vid-19) vaccine, mRNA, LNP-S, PF, 100 mcg/ 0.5 mL 73426 Given 07/27/2020 Influenza Virus Vaccine, Donald drivalent,multidose vial [id number] 13293 Given 03/06/2018 Pneumococcal Vaccine [id number] 12659 Given 08/13/2015 Zostavax 04355 Given 07/07/2015 Influenza Vaccination 76739 Given 06/10/2015 Prevnar 13 [id number] 98294 Given 08/28/2013 Influenza Vaccination 84387 Given 11/22/2009 H1N1 Vaccine 28801 Given 08/31/2009 Influenza Vaccination Vital Signs Date Vital Result Comment 08/09/2021 10:14am BP Systolic 131 mmHg BP Diastolic 54 mmHg Heart Rate 59 /min Body Temperature 97.3 F Respiratory Rate 16 /min Height 63.5 inches 5'3.50" Weight 124.25 lb O2 % BldC Oximetry 98 % Peak Expiratory Flow Rate 317 Estimated Peak Flow Rate [place] Body Weight 115 lb BMI (Body Mass [...] Flow Rate 319 Estimated Peak Flow Rate [place] Body Weight 115 lb BMI (Body Mass Index) 25.3 kg/m2 Results Test Acquired Date Facility Test Result H/L Range Note Hemoglobin A1c 08/03/[address] [facility] [address] [place] [address] [phone] Hemoglobin A1c 6.5 % High 4.8-5.6 1, 2 1 A courtesy copy of this repo rt has been sent to the patient, 2 Prediabetes: 5.7 - 6.4 Diabetes: >6.4 Glycemic control for adults with diabetes: <7.0 Procedures Date Code Description Status 04/2021 [id number] Mammogram Completed 01/24/2021 [id number] Diabetic Foot Exam Completed 2009 [id number] Bone Mineral Density Test Comple [employer] Description No Information Available Encounters Description No [...]
--- OUTSIDE RECORDS SUMMARY | 2021-08-25 10:48 | CCD | Continuity of Care Document ---
Author Author Deepali DIOR PA Organization Unknown Address [address] [place] [address], [place] [address] Phone [phone] Care Team Providers Care Oven Dumper Name Role Phone Tano Crocker MD AUTM [phone] Leelee Gomez MD AUTM [phone] Evans Aly MD AUTM [phone] Problems Active Problems Provider Date Anxiety Onset: 02/08/2017 Essential hypertension Onset: 02/08/2017 Electrocardiogram abnormal Ernesto Casey MD Onset: 2016 Edema Ernesto Casey MD Onset: 02/21/2017 Heart murmur Ernesto Casey MD Onset: 02/21/2017 Hypertensive heart disease without congestive heart failure Ernesto Casey MD Onset: 02/21/2017 Aortic valve disorder Ernesto Casey MD Onset: 02/28/2017 Atherosclerosis of renal artery Ernesto Casey MD Onset: 0 02/28/2017 Chronic cor pulmonale Ernesto Casey MD Onset: 02/28/2017 Renovascular hypertension Ernesto Casey MD Onset: 017 Disorder of magnesium metabolism Ernesto Casey MD Onset: 03/28/2017 Dietary management surveillance HAL Martinez Onset: 02/19/2019 Chronic cor pulmonale HAL Russo Onset: 06/16/20 Social History Type Date Description Comments Sex Unknown ETOH Use Occasionally consumes wine maybe once a week Tobacco Use Start: Unknown End: Unknown Patient is a former smoker up to 1/2 ppd x10 yrs, quit 1989 Smoking Status Reviewed: 06/16/21 Patient is a former smoker up to 1/2 ppd x10 yrs, quit 1989 Exercise Type/Frequency Does housework daily Exercise Type/Frequency Walks daily Exercise Type/Frequency Does yardwork twice a we ek Exercise Type/Frequency Does gardening 3 times a week Exercise Limitations Joint Pain left hip Allergies, Adverse Reactions, Alerts Description No Known Drug Allergies Medications Active Medications SIG Qnty Indications Ordering Provide r Date Dorzolamide HCL/Timolol Maleate 22.3-6.8mg/ml Solution 1 drop each eye twice a day Unknown 05/25/2020 Carvedilol 25mg Tablets Take One Tablet By Mouth Twice A Day 60tabs Ernesto Casey MD 03/02/2019 Aspir-[address] 1 by mouth every day 30tabs R94.31 Ernesto Casey MD 05/01/2017 Atorvastatin Calcium 80mg Tablets Take One Tablet By Mouth AT Bedtime 30tabs R94.31 Ernesto Casey MD Magnesium Oxide 400(241.3mg) mg Ta blets Take One Tablet By Mouth Twice A Day 60tabs Ernesto canada MD 03/26/2017 Spironolactone 25mg Tablets Take One Tablet By Mouth Once Daily 30tabs Ernesto Casey MD Probiotic Capsules 1 by mouth every day Unknown 02/24/2017 Metformin HCL ER (Mod) 500mg Tablets ER 24HR 1 by mouth bid Unknown 02/20/2017 Vitamin D-3 1000Unit Capsules 1 by mouth every day Unknown 02/20/2017 Losartan Potassium 100mg Tablets Daily Unknown 02/08/2017 Chlorthalidone 25mg Tablets Take 1/2 Tablet By Mouth Once Daily 15tabs Ernesto Casey MD Immunizations Description No Information Available Vital Signs Date Vital Result Comment 06/16/2021 1:06pm Weight 125.00 lb Home Weight 130lb Height 64 inches 5'4" BMI (Body Mass Index) 21.5 kg/m2 BP Systolic Sitting 102 mmHg Ra, medium cuff BP Diastolic Sitting 58 mmHg Ra, medium cuff 05/26/2020 1:22pm Weight 148.00 lb Home Weight 147lb Height 64 inches 5'4" BMI (Body Mass Index) 25.4 kg/m2 Heart Rate 66 /min BP Systolic Sitting 142 mmHg large cuff, Ra BP Diastolic Sitting 82 mmHg large cuff, Ra Results Test Acquired Date Facility Test Result H/L Range Note BMP 06/28/2021 [facility] [place] Glucose 122 mg/dL High 65-99 BUN 37 mg/dL High 8-27 Creatinine 1.06 mg/dL High 0.57-1.00 eGFR If NonAfricn Am 53 mL/min/1.73 Low >59 eGFR If Africn Am 61 mL/min/1.73 >59 1 BUN/Creatinine Ratio 35 High 12-28 Sodium 140 mmol/L 134-144 Potassium 5.3 mmol/L High 3.5-5.2 Chloride 104 mmol/L 96-106 Carbon Dioxide, Total 24 mmol/L 20-29 Calcium 10.5 mg/dL High 8.7-10.3 2 Laboratory test finding 06/28/2021 [facility] [place] NT-proBNP 143 pg/mL 0-301 3 Lipid Panel 06/28/2021 [facility] Cholesterol, Total 83 mg/dL Low 100-199 Triglycerides 56 mg/dL 0-149 HDL Cholesterol 56 mg/dL >39 VLDL Cholesterol Bassem 14 mg/dL 5-40 LDL Chol Calc (Nih) 13 mg/dL 0-99 Comment: TNP Laboratory test finding 06/28/2021 [facility] [place] Magnesium 1.8 mg/dL 1.6-2.3 PDF [id number] SEE IMAGE CBC without Differential 01/13/2021 [facility] ([facility] - White Blood Count 8.0 3.4-10.8 Red Blood Count 4.02 3.77-5.28 Platelets 332 150-450 Hemoglobin 11.9 11.1-15.9 Hematocrit 36.3 34.0-46.6 CMP 01/13/2021 [facility] ([facility])- - Albumin Serum/Plasma 4.4 Alt - SGPT 108 Calcium Ser/Plasma Mass/Vol 10.4 Carbon Dioxide Ser/Plasm 23 Chloride Serum/Plasma 98 Alkaline Phosphatase 108 Potassium 4.6 Protein Total 6.5 Sodium 135 Ast - Sgot 19 BUN - Urea Nitrogen 27 Glucose 171 High 70-100 Creatinine For GFR 1.15 Lipid Profile/Cardiac Risk Pro 01/13/2021 [facility] ([facility])- - Triglycerides 97 Cholesterol 105 100-199 HDL 71 High 40-60 LDL Cholesterol -- Chol/HDL Ratio -- Hemoglobin A1c 01/13/2021 [facility] ([facility])- - Hemoglobin A1c 6.6 1 [facility] currently reports eGFR in compliance with the current recommendations of the National Kidney Foundation. [facility] will update reporting as new guidelines are published from the NKF-ASN Task force. 2 Verified by repeat analysi s 3 The following cut-points hav e been suggested for the use of proBNP for the diagnostic evaluation of heart failure (HF) in patients with acute dyspnea: Modality Age Optimal Cut (years) Point Diagnosis (rule in HF) <50 450 pg/mL 50 - 75 900 pg/mL >75 1800 pg/mL Exclusion (rule out HF) Age independent 300 pg/mL Procedures Date Code Description Status 06/16/2021 95375 Office/Outpatient Established Mo d MDM 30-39 Min Completed 06/16/2021 48533 ECG 12-Lead Completed Medical Devices Description No Information Available Encounters Type Date Location Provider Dx Diagnosis Office Visit 06/16/2021 1:00p Main Office HAL Russo I11 .9 Hypertensive heart disease without heart failure I27.81 Cor pulmonale (chronic) I35.1 Nonrheumatic aortic (valve) insufficiency R60.0 Localized edema M79.10 Myalgia, unspecified site R94.31 Abnormal electrocardiogram [ ECG] [EKG] Z71.3 Dietary counseling and surve illance Assessments Date Code Description Provider 06/16/2021 I11.9 Hypertensive heart disease witho ut heart failure HAL Russo 06/16/2021 I27.81 Cor pulmonale (chronic) HAL Perkins 06/16/2021 I35.1 Nonrheumatic aortic (valve) insu fficiency HAL Russo 06/16/2021 R60.0 Localized edema HAL Simpson Cha, se 06/16/2021 M79.10 Myalgia, unspecified site HAL Negrete 06/16/2021 R94.31 Abnormal electrocardiogram [ECG] [EKG] HAL Russo 06/16/2021 Z71.3 Dietary counseling and surveilla nce HAL Russo Plan of Treatment Future Appointment(s):* 06/18/2022 1:30 pm - HAL Russo at Main Office * 09/07/2021 1:00 pm - ECHO at Main Office 06/16/2021 - HAL Russo* I11.9 Hypertensive heart disease without heart failure* Recommendations:* Decrease losartan to 50mg daily Continue carvedilol, chlorthalidone and spironolactone at the current dosages - In the morning: carvedilol, chlorthalidone and spironolactone - In the evening: carvedilol and losartan Advised patient to please monitor blood pressures at home and to alert our office with readings >140/>90 * I27.81 Cor pulmonale (chronic)* New Xrays:* US Echocardiogram Transthoracic W Doppler And Color Flow, Scheduled: 09/07/21 * Recommendations:* Repeat echocardiogram has been ordered for further evaluation Please alert the office with the onset of any worsening lower extremity swelling, shortness of breath, or concerning symptoms * I35.1 Nonrheumatic aortic (valve) insufficiency* Recommendations:* Repeat echocardiogram ordered for further evaluation * R60.0 Localized edema* Recommendations:* Continue chlorthalidone and spironolactone at the current dosages * M79.10 Myalgia, unspecified site* Recommendations:* Decrease atorvastatin to 40 mg daily x 1 week Will contact her in 1 week to assess symptoms * R94.31 Abnormal electrocardiogram [ECG] [EKG]* Recommendations:* No further evaluation is needed at this time. * Z71.3 Dietary counseling and surveillance* Recommendations:* Recommended for patient to follow a more whole food diet. Advised patient to avoid overly processed foods and packaged foods. Advised patient to avoid sodas, juices and other liquid calories. Recommended at least 30 minutes of exercise 3 days a week. * All * Follow up:* Follow up in 1 year or sooner depending on test results Functional Status Functional Condition Comment Date Status Independent with all ADL's Activ e Mental Status Description No Information Available Referrals Description No Information Available
--- OUTSIDE RECORDS SUMMARY | 2021-08-25 10:48 | CCD | Continuity of Care Document ---
Author Author Deepali DIOR PA Organization Unknown Address [address] [place] [address], [place] [address] Phone [phone] Care Team Providers Care Fitter Up Name Role Phone Tano Crocker MD AUTM [phone] Leelee Gomez MD AUTM [phone] Evans Aly MD AUTM [phone] Problems Active Problems Provider Date Anxiety Onset: [...] SIG Qnty Indications Ordering Provide r Date Glucosamine Chondroitin Advanced Tablets 1 by mouth twice daily Unknown 1 Dorzolamide HCL/Timolol Maleate 22.3-6.8mg/ml Solution 1 drop [...] Result H/L Range Note Laboratory test finding 07/12/2021 [facility] Potassium 4.5 mmol/L 3.5-5.2 1 PDF [id number] SEE IMAGE BMP 06/28/2021 [facility] Glucose 122 mg/dL High 65-99 BUN 37 mg/dL High 8-27 Creatinine 1.06 mg/dL High 0.57-1.00 eGFR If NonAfricn Am 53 mL/min/1.73 Low >59 eGFR If Africn Am 61 mL/min/1.73 >59 2 BUN/Creatinine Ratio 35 High 12-28 Sodium 140 mmol/L 134-144 Potassium 5.3 mmol/L High 3.5-5.2 Chloride 104 mmol/L 96-106 Carbon Dioxide, Total 24 mmol/L 20-29 Calcium 10.5 mg/dL High 8.7-10.3 3 Laboratory test finding 06/28/2021 [facility] NT-proBNP 143 pg/mL 0-301 4 Lipid Panel 06/28/2021 [facility] Cholesterol, Total 83 mg/dL Low 100-199 Triglycerides 56 mg/dL 0-149 HDL Cholesterol 56 mg/dL >39 VLDL Cholesterol Bassem 14 mg/dL 5-40 LDL Chol Calc (Nih) 13 mg/dL 0-99 Comment: TNP Laboratory test finding 06/28/2021 [facility] Magnesium 1.8 mg/dL 1.6-2.3 PDF [id number] SEE IMAGE CBC without Differential 01/13/2021 [facility] ([facility])- - Hemoglobin A1c 6.6 1 A courtesy copy of this repo rt has been sent to the patient, 2 [facility] currently reports eGFR in compliance with the current recommendations of the National Kidney Foundation. [facility] will update reporting as new guidelines are published from the NKF-ASN Task force. 3 Verified by repeat analysi s 4 The following cut-points hav e been suggested for the use of proBNP for the diagnostic evaluation of heart failure (HF) in patients with acute dyspnea: Modality Age Optimal Cut (years) Point Diagnosis (rule in HF) <50 450 pg/mL 50 - 75 900 pg/mL >75 1800 pg/mL Exclusion (rule out HF) Age independent 300 pg/mL Procedures Date Code Description Status 06/16/2021 07192 Office/Outpatient Established Mo d MDM 30-39 Min Completed 06/16/2021 39327 ECG 12-Lead Completed Medical Devices Description No [...]
--- OUTSIDE RECORDS SUMMARY | 2021-08-25 10:48 | CCD | Continuity of Care Document ---
Author Author Deepali DIOR PA Organization Unknown Address [address] [place] [address], [place] [address] Phone [phone] Care Team Providers Care Assistant Product Manager Name Role Phone Tano Crocker MD AUTM [phone] Leelee Gomez MD AUTM [phone] Evans Aly MD AUTM [phone] Problems Active Problems Provider Date Anxiety Onset: [...] MD Onset: 03/28/2017 Dietary management surveillance HAL Martienz Onset: 02/19/2019 Chronic cor pulmonale HAL Russo [...] Date Facility Test Result H/L Range Note CBC without Differential 01/13/2021 [facility])- - Hemoglobin A1c 6.6 Procedures Date Code Description Status 06/16/2021 82083 Office/Outpatient Established Mo d MDM 30-39 Min Completed 06/16/2021 40992 ECG 12-Lead Completed Medical Devices Description No [...] I11.9 Hypertensive heart disease without heart failure* New Labs:* BMP, Ordered: 06/16/21 * Magnesium Level, Ordered: 06/16/21 * Recommendations:* Decrease losartan to 50mg daily Continue carvedilol, chlorthalidone and spironolactone at the current dosages - In the morning: carvedilol, chlorthalidone and spironolactone - In the evening: carvedilol and losartan Advised patient to please monitor blood pressures at home and to alert our office with readings >140/>90 * I27.81 Cor pulmonale (chronic)* New Labs:* NT Probnp QN Ser/Plas, Ordered: 06/16/21 * New Xrays:* US Echocardiogram Transthoracic W Doppler [...] current dosages * M79.10 Myalgia, unspecified site* New Labs:* Lipid Panel, Ordered: 06/16/21 * Recommendations:* Decrease atorvastatin to 40 mg daily [...]
--- OUTSIDE RECORDS SUMMARY | 2021-08-25 10:48 | CCD | Continuity of Care Document ---
Author Organization Unknown Address Unknown Phone Unavailable Care Team Providers Care Engrosser Name Role Phone Tano Crocker MD AUTM [phone] Leelee Gomez MD AUTM [phone] Evans Aly MD AUTM [phone] Problems Active Problems Provider Date Anxiety Onset: 02/08/2017 Essential hypertension Onset: 02/08/2017 Electrocardiogram abnormal Ernesto Casey MD Onset: 2016 Edema Ernesto Casey MD Onset: 02/21/2017 Heart murmur Ernesto Casey MD Onset: 02/21/2017 Hypertensive heart disease without congestive heart failure Ernesto Casey MD Onset: 02/21/2017 Aortic valve disorder Ernesto Casey MD Onset: 02/28/2017 Atherosclerosis of renal artery Ernesto Casey MD Onset: 0 02/28/2017 Chronic pulmonary heart disease Ernesto Casey MD Onset: 0 02/28/2017 Renovascular hypertension Ernesto Casey MD Onset: 017 Disorder of magnesium metabolism Ernesto Casey MD Onset: 03/28/2017 Dietary management surveillance HAL Martinez Onset: 02/19/2019 Social History Type Date Description Comments Sex Unknown ETOH Use Occasionally consumes wine maybe once a week Tobacco Use Start: Unknown End: Unknown Patient is a former smoker up to 1/2 ppd x10 yrs, quit 1989 Smoking Status Reviewed: 05/26/20 Patient is a former smoker up to [...] each eye twice a day Unknown 05/25/2020 Brimonidine Tartrate 0.2% Solution 1 drop both eyes every 12 hours Unknown 020 Carvedilol 25mg Tablets Take One Tablet By [...] Available Vital Signs Date Vital Result Comment 05/26/2020 1:22pm Weight 148.00 lb Home Weight 147lb Height 64 inches 5'4" BMI (Body Mass Index) 25.4 kg/m2 Heart Rate 66 /min BP Systolic Sitting 142 mmHg large cuff, Ra BP Diastolic Sitting 82 mmHg large cuff, Ra 02/19/2019 1:35pm Weight 139.00 lb Home Weight 150lb home weight Height 64 inches 5'4" BMI (Body Mass Index) 23.9 kg/m2 Heart Rate 58 /min BP Systolic Sitting 138 mmHg BP Diastolic Sitting 78 mmHg Results Test Acquired Date Facility Test Result [...] [facility] ([facility])- - Hemoglobin A1c 6.6 Procedures Description No Information Available Medical Devices Description No Information Available Encounters Description No Information Available Assessments Description No Information Available Plan of Treatment Future Appointment(s):* 06/16/2021 1:00 pm - HAL Russo at Main Office 05/26/2020 - HAL Martinez* I11.9 Hypertensive heart disease without heart failure* Recommendations:* No medication changes were made today. * I27.81 Cor pulmonale (chronic) * R94.31 Abnormal electrocardiogram [ECG] [EKG]* Recommendations:* No significant change. No further workup required. * Z71.3 Dietary counseling and surveillance* Recommendations:* Recommend adopting a more whole foods, plant-based diet in addition to moderate exercise a minimum of 30 minutes 6 days a week. In order to optimize cardiovascular health please be conscious of processed foods, alcohol (no more than two dr inks a day for men and one drink a day for women), salt (<2000 mg/d), oils, saturated fat/animal products, and highly refined carbohydrates such as breads, pastas, and sweets. * All * Follow up:* Follow up in 12 months. Functional Status Functional Condition Comment Date Status Independent with all ADL's Activ e Mental Status Description No Information Available Referrals Description No Information Available
--- OUTSIDE RECORDS SUMMARY | 2021-08-25 10:48 | CCD | Continuity of Care Document ---
Author Author Deepali BARRON M.D. Organization Unknown Address [address] [place] [address] Phone [phone] Problems Active Problems Provider Date Essential hypertension [...] CPT Code Status Date Vaccine Lot # [id number] Given 08/09/2021 Influenza Virus Vaccine, Donald drivalent,multidose vial [id number] 13378 Given 01/13/2021 Moderna Sars-(Co vid-19) vaccine, mRNA, LNP-S, PF, 100 mcg/ 0.5 mL 99521 Given 12/16/2020 Moderna Sars-(Co vid-19) vaccine, mRNA, LNP-S, PF, 100 mcg/ 0.5 mL 94045 Given 07/27/2020 Influenza Virus Vaccine, Donald drivalent,multidose vial [id number] 83188 Given 03/06/2018 Pneumococcal Vaccine [id number] 58599 Given 08/13/2015 Zostavax 93383 Given 07/07/2015 Influenza Vaccination 16793 Given 06/10/2015 Prevnar 13 [id number] 43564 Given 08/28/2013 Influenza Vaccination 24362 Given 11/22/2009 H1N1 Vaccine 92430 Given 08/31/2009 Influenza Vaccination Vital Signs Date Vital Result Comment 08/09/2021 10:14am BP Systolic 131 mmHg BP Diastolic 54 mmHg Heart Rate 59 /min Body Temperature 97.3 F Respiratory Rate 16 /min Height 63.5 inches 5'3.50" Weight 124.25 lb O2 % BldC Oximetry 98 % Peak Expiratory Flow Rate 317 Estimated Peak Flow Rate [place] Body Weight 115 lb BMI (Body Mass [...] Flow Rate 319 Estimated Peak Flow Rate [place] Body Weight 115 lb BMI (Body Mass Index) 25.3 kg/m2 Results Test Acquired Date Facility Test Result H/L Range Note Hemoglobin A1c 08/03/[address] [facility] [address] [place] [address] [phone] Hemoglobin A1c 6.5 % High 4.8-5.6 1, 2 1 A courtesy copy of this repo rt has been sent to the patient, 2 Prediabetes: 5.7 - 6.4 Diabetes: >6.4 Glycemic control for adults with diabetes: <7.0 Procedures Date Code Description Status 04/2021 [id number] Mammogram Completed 01/24/2021 [id number] Diabetic Foot Exam Completed 2009 [id number] Bone Mineral Density Test Comple weendy Description No Information Available Encounters Description No [...]
--- OUTSIDE RECORDS SUMMARY | 2021-08-25 10:48 | CCD | Continuity of Care Document ---
Author Author Deepali LUNA F.N.P. Organization Unknown Address [address], [address] [place] [address] Phone [phone] Care Team Providers Care Hammer Adjuster Name Role Phone Leelee Gomez MD [facility] [phone] Problems Description No Information Available Social History [...] 2020 Magnesium Unknown Creon 3000-9500Unit Caps DR Part Unknown Biotin Unknown Dorzolamide HCL/Timolol Maleate 22.3-6.8mg/ml Solution Instill One Drop In The Right Eye Two Times A Day as Directed Unknown Aspir-81 Unknown Vitamin D Unknown Atorvastatin Calcium Unknown Metformin HCL Unknown Chlorthalidone Unknown Spironolactone Unknown Losartan Potassium Unknown Carvedilol Unknown History Medications Cephalexin 500mg Tablets 1 by mouth twice a day x 10 days 20tabs Grecia Luna F.N.P. 2020 - 06/15/2021 Mupirocin 2% Ointment apply to scalp sparingly twice a day 22gm R23.4 Grecia Luna, F.N.P. 06/05/2021 - 06/05/2021 Keflex 500mg Capsules 1 by mouth twice a day 14caps Grecia Luna, F.N.P. 2020 - 03/20/2021 Immunizations Description No Information Available Vital Signs Date Vital Result Comment 06/15/2021 9:11am BP Systolic 130 mmHg BP Diastolic 60 mmHg Weight 131.00 lb Height 63 inches 5'3" BMI (Body Mass Index) 23.2 kg/m2 06/05/2021 11:03am BP Systolic 122 mmHg BP Diastolic 82 mmHg Weight 136.00 lb Respiratory Rate 18 /min Results Test Acquired Date Facility Test Result H/L Range Note Anaerobic And Aerobic Culture 06/05/2021 [facility] Anaerobic Culture Final report 1, 2 Result 1 See Comment: 3 Aerobic Culture Final report Abnormal 4 Result 1 See Comment: Abnormal 5 Antimicrobial Susceptibility See Comment: 6 Laboratory test finding 06/05/2021 [facility] PDF [id number] SEE IMAGE Anaerobic And Aerobic Culture 03/20/2021 [facility] Anaerobic Culture Final report 7, 8 Result 1 See Comment: 9 Aerobic Culture Final report 10 Result 1 Skin mio isola <SEE NOTE> 11 Laboratory test finding 03/20/2021 [facility] PDF [id number] SEE IMAGE BXDX Pathology 02/14/2021 [facility] L Icd9 Code ICD9 Code: L57.0 PDFReport SEE IMAGE Laboratory test finding 02/14/2021 [place] [id number] [phone] Culture Bacterial <pending> 1 SRC:Scalp 2 Source [...] is a background of solar elastosis. CPT: 80930*1 Procedures Date Code Description Status 06/15/2021 35153 Office/Outpatient Established Mo d MDM 30-39 Min Completed 06/05/2021 92447 Office/Outpatient Established Mo d MDM 30-39 Min Completed 04/05/2021 57573 Office/Outpatient Established Lo w MDM 20-29 Min Completed 03/28/2021 55794 Office/Outpatient Established Mo d MDM 30-39 Min Completed 03/20/2021 22503 Office/Outpatient Established Mo d MDM 30-39 Min Completed 03/09/2021 30206 Office/Outpatient Established Mo d MDM 30-39 Min Completed 02/14/2021 88573 Office/Outpatient Established Mo d MDM 30-39 Min Completed 02/14/2021 76218 Destruction Of Lesion First Comp leted 02/14/2021 02644 Shave Biopsy Of Skin, Single Les ion Completed Medical Devices Description No Information Available Encounters Type Date Location Provider Dx Diagnosis Office Visit 06/15/2021 9:15a Main Office Grecia Bowman'han, F.N.P. B95.7 Oth staphylococcus as the cause of diseases classd elswhr R20.8 Other disturbances of skin s ensation Office Visit 06/05/2021 11:00a Main Office Grecia Bowman'han, F.N.P. L57.0 Actinic keratosis R20.8 Other disturbances of skin s ensation L08.9 Local [facility] the [facility] and [facility] tissue, [facility] 04/05/2021 12:15p Main Office Grecia Bowman'han, F.N.P. L57.0 Actinic keratosis R20.8 Other disturbances of skin s ensation Office Visit 03/28/2021 9:30a Main Office Grecia Bowman'han, F.N.P. L57.0 Actinic keratosis R20.8 Other disturbances of skin s ensation Office Visit 03/20/2021 11:45a Main Office Grecia Bowman'han, F.N.P. L57.0 Actinic keratosis Office Visit 03/09/2021 12:30p Main Office Grecia Bowman'han, F.N.P. L57.0 Actinic keratosis L08.9 Local infection of the skin and subcutaneous tissue, [facility] 02/14/2021 10:15a Main Office Grecia Bowman'han, F.N.P. D48.5 Neoplasm of uncertain behavior of skin L08.9 Local infection of the skin and subcutaneous tissue, [facility] L57.0 Actinic keratosis D22.5 Melanocytic nevi of trunk L82.1 Other seborrheic keratosis L81.4 Other melanin hyperpigmentat ion L85.9 Epidermal thickening, unspec ified Z85.828 Personal history of other ma lignant neoplasm of skin Z08 Encntr for follow-up exam af ter trtmt for malignant neoplasm Assessments Date Code Description Provider 06/15/2021 B95.7 Other staphylococcus as the cause [...] O'han, F.N.P. 02/14/2021 L57.0 Actinic keratosis Grecia spain, F.N.P. 02/14/2021 D22.5 Melanocytic nevi of trunk Kaylahrc almanzar Ag, F.N.P. 02/14/2021 L82.1 Other seborrheic keratosis Ngoc rinnidia Luna, F.N.P. 02/14/2021 L81.4 Other melanin hyperpigmentation Grecia Luna F.N.P. 02/14/2021 L85.9 Epidermal thickening, unspecifie d Grecia Luna F.N.P. 02/14/2021 Z85.828 Personal history of other malign ant neoplasm of skin Laxmi AliceaN.P. 02/14/2021 Z08 Encounter for follow -up examination after completed treatment for malignant neoplasm Laxmi AliceaNAngela. Plan of Treatment Future Appointment(s):* 08/17/2021 10:45 am - Grecia Luna F.N.P. at Main Office 06/15/2021 - Grecia Luna F.N.P.* B95.7 Other staphylococcus as the cause of diseases classified elsewhere* Comments:* Improving.Discussed culture resultsContinue with Mupirocin 2 % ointment BID Will hold off on treating with oral antibiotics since she is improving and she is have a workup for GI issuesRecommended using a warm compress for 10 mis prior to applying Mupirocin ointment. Call with problems. * R20.8 Other disturbances of skin sensation* Comments:* See above. * Follow up:* 10 days - infection follow up Functional Status Description No Information Available Mental Status Description No Information Available Referrals Description No Information Available
--- OUTSIDE RECORDS SUMMARY | 2021-08-25 10:48 | CCD | Continuity of Care Document ---
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 Name Role Phone Tano Crocker MD [facility] [phone] Leelee Gomez MD [facility] [phone] Evans Aly MD [facility] [phone] Problems Active Problems Provider Date Anxiety Onset: [...] Chronic cor pulmonale HAL Russo Onset: 06/16/20 21 Social History Type Date Description Comments Sex [...] 5'4" BMI (Body Mass Index) 21.5 kg/m2 05/26/2020 1:22pm Weight 148.00 lb Home Weight [...] 6.6 Procedures Date Code Description Status 06/16/2021 92113 Office/Outpatient Established Mo d MDM 30-39 Min Completed 06/16/2021 28127 ECG 12-Lead Completed Medical Devices Description No [...] Russo 06/16/2021 Z71.3 Dietary counseling and surveilla f f [facility] HAL Russo Plan of Treatment 06/16/2021 - HAL Russo* I11.9 Hypertensive heart [...] Echocardiogram Transthoracic W Doppler And Color Flow, Ordered: 06/16/21 * Recommendations:* Please alert the office with the onset of any worsening lower extremity swelling, shortness of breath, or concerning symptoms * I35.1 Nonrheumatic aortic (valve) insufficiency * R60.0 Localized edema* Recommendations:* Continue chlorthalidone [...]
--- OUTSIDE RECORDS SUMMARY | 2021-08-25 10:50 | CCD ---
Author Author [facility] Organization [facility] Address Unknown Phone Unavailable Care Team Providers Care Multi Craft Maintenance Technician Name Role Phone Trotter Danielle ELECTRON BEAM MACHINE WELDER SETTER Unavailable Unavailable Trotter, Danielle ELECTRON BEAM MACHINE WELDER SETTER Unavailable Unavailable Trotter, Danielle ELECTRON BEAM MACHINE WELDER SETTER Unavailable Unavailable Trotter, Danielle ELECTRON BEAM MACHINE WELDER SETTER Unavailable Unavailable Trotter, Danielle ELECTRON BEAM MACHINE WELDER SETTER Unavailable Unavailable Trotter, Danielle ELECTRON BEAM MACHINE WELDER SETTER Unavailable Unavailable Trotter, Danielle ELECTRON BEAM MACHINE WELDER SETTER Unavailable Unavailable Trotter, Danielle ELECTRON BEAM MACHINE WELDER SETTER Unavailable Unavailable Trotter, Danielle ELECTRON BEAM MACHINE WELDER SETTER Unavailable Unavailable Trotter, Danielle ELECTRON BEAM MACHINE WELDER SETTER Unavailable Unavailable Trotter, Danielle ELECTRON BEAM MACHINE WELDER SETTER Unavailable Unavailable Trotter, Danielle ELECTRON BEAM MACHINE WELDER SETTER Unavailable Unavailable Trotter, Danielle ELECTRON BEAM MACHINE WELDER SETTER Unavailable Unavailable Petrancosta, [place] Yenifer PA-C Unavailable Unavailabl e Petrancosta, [place] Yenifer PA-C Unavailable Unavailabl e Petrancosta, [place] Yenifer PA-C Unavailable Unavailabl e Petrancosta, [place] Yenifer PA-C Unavailable Unavailabl e Petrancosta, [place] Yenifer PA-C Unavailable Unavailabl e Petrancosta, [place] Yenifer PA-C Unavailable Unavailabl e Petrancosta, [place] Yenifer PA-C Unavailable Unavailabl e Petrancosta, [place] Yenifer PA-C Unavailable Unavailabl e Petrancosta, [place] Yenifer PA-C Unavailable Unavailabl e Petrancosta, [place] Yenifer PA-C Unavailable Unavailabl e Petrancosta, [place] Yenifer PA-C Unavailable Unavailabl e Petrancosta, [place] Yenifer PA-C Unavailable Unavailabl e Petrancosta, [place] Yenifer PA-C Unavailable Unavailabl e Petrancosta, [place] Yenifer PA-C Unavailable Unavailabl e Petrancosta, [place] Yenifer PA-C Unavailable Unavailabl e Petrancosta, [place] Yenifer PA-C Unavailable Unavailabl e Petrancosta, [place] Yenifer PA-C Unavailable Unavailabl e Petrancosta, [place] Yenifer PA-C Unavailable Unavailabl e Petrancosta, [place] Yenifer PA-C Unavailable Unavailabl e Petrancosta, [place] Yenifer PA-C Unavailable Unavailabl e Petrancosta, [place] Yenifer PA-C Unavailable Unavailabl e Petrancosta, [place] Yenifer PA-C Unavailable Unavailabl e Petrancosta, [place] Yenifer PA-C Unavailable Unavailabl e Petrancosta, [place] Yenifer PA-C Unavailable Unavailabl e Petrancosta, [place] Yenifer PA-C Unavailable Unavailabl e SARAVANAN (CLEMENCIA), Tawana MARTINEZ MD Unavailable Unavailab le SARAVANAN (CLEMENCIA), Tawana MARTINEZ MD Unavailable Unavailab le SARAVANAN (CLEMENCIA), Tawana MARTINEZ MD Unavailable Unavailab le SARAVANAN (CLEMENCIA), Tawana MARTINEZ MD Unavailable Unavailab le SARAVANAN (CLEMENCIA), Tawana MARTINEZ MD Unavailable Unavailab le SARAVANAN (CLEMENCIA), Tawana MARTINEZ MD Unavailable Unavailab le SARAVANAN (CLEMENCIA), Tawana MARTINEZ MD Unavailable Unavailab le SARAVNAAN (CLEMENCIA), Tawana MARTINEZ MD Unavailable Unavailab le SARAVANAN (CLEMENCIA), Tawana MARTINEZ MD Unavailable Unavailab le SARAVANAN (CLEMENCIA), Tawana MARTINEZ MD Unavailable Unavailab le SARAVANAN (CLEMENCIA), Tawana MARTINEZ MD Unavailable Unavailab le SARAVANAN (CLEMENCIA), Tawana MARTINEZ MD Unavailable Unavailab le SARAVANAN (CLEMENCIA), Tawana MARTINEZ MD Unavailable Unavailab le SARAVANAN (CLEMENCIA), Tawana MARTINEZ MD Unavailable Unavailab le SARAVANAN (CLEMENCIA), Tawana MARTINEZ MD Unavailable Unavailab le SARAVANAN (CLEMENCIA), Tawana MARTINEZ MD Unavailable Unavailab le SARAVANAN (CLEMENCIA), Tawana MARTINEZ MD Unavailable Unavailab le SARAVANAN (CLEMENCIA), Tawana MARTINEZ MD Unavailable Unavailab le SARAVANAN (CLEMENCIA), Tawana MARTINEZ MD Unavailable Unavailab le SARAVANAN (CLEMENCIA), Tawana MARTINEZ MD Unavailable Unavailab le SARAVANAN (CLEMENCIA), Tawana MARTINEZ MD Unavailable Unavailab le SARAVANAN (CLEMENCIA), Tawana MARTINEZ MD Unavailable Unavailab le SARAVANAN (CLEMENCIA), Tawana MARTINEZ MD Unavailable Unavailab le SARAVANAN (CLEMENCIA), Tawana MARTINEZ MD Unavailable Unavailab le SARAVANAN (CLEMENCIA), Tawana MARTINEZ MD Unavailable Unavailab le SARAVANAN (CLEMENCIA), Tawana MARTINEZ MD Unavailable Unavailab le SARAVANAN (CLEMENCIA), Tawana MARTINEZ MD Unavailable Unavailab le SARAVANAN (CLEMENCIA), Tawana MARTINEZ MD Unavailable Unavailab le SARAVANAN (CLEMENCIA), Tawana MARTINEZ MD Unavailable Unavailab le SARAVANAN (CLEMENCIA), Tawana MARTINEZ MD Unavailable Unavailab le SARAVANAN (CLEMENCIA), Tawana MARTINEZ MD Unavailable Unavailab le SARAVANAN (CLEMENCIA), Tawana MARTINEZ MD Unavailable Unavailab le SARAVANAN (CLEMENCIA), Tawana MARTINEZ MD Unavailable Unavailab le SARAVANAN (CLEMENCIA), Tawana MARTINEZ MD Unavailable Unavailab le SARAVANAN (CLEMENCIA), Tawana MARTINEZ MD Unavailable Unavailab le SARAVANAN (CLEMENCIA), Tawana MARTINEZ MD Unavailable Unavailab le SARAVANAN (CLEMENCIA), Tawana MARTINEZ MD Unavailable Unavailab le SARAVANAN (CLEMENCIA), Tawana MARTINEZ MD Unavailable Unavailab le SARAVANAN (CLEMENCIA), Tawana MARTINEZ MD Unavailable Unavailab le SARAVANAN (CLEMENCIA), Tawana MARTINEZ MD Unavailable Unavailab le SARAVANAN (CLEMENCIA), Tawana MARTINEZ MD Unavailable Unavailab le SARAVANAN (CLEMENCIA), Tawana MARTINEZ MD Unavailable Unavailab le SARAVANAN (CLEMENCIA), Tawana MARTINEZ MD Unavailable Unavailab le SARAVANAN (CLEMENCIA), Tawana MARTINEZ MD Unavailable Unavailab le SARAVANAN (CLEMENCIA), Tawnaa MARTINEZ MD Unavailable Unavailab le SARAVANAN (CLEMENCIA), Tawana MARTINEZ MD Unavailable Unavailab le SARAVANAN (CLEMENCIA), Tawana MARTINEZ MD Unavailable Unavailab le SARAVANAN (CLEMENCIA), Tawana MARTINEZ MD Unavailable Unavailab le SARAVANAN (CLEMENCIA), Tawana MARTINEZ MD Unavailable Unavailab le SARAVANAN (CLEMENCIA), Tawana MARTINEZ MD Unavailable Unavailab le SARAVANAN (CLEMENCIA), Tawana MARTINEZ MD Unavailable Unavailab le SARAVANAN (CLEMENCIA), Tawana MARTINEZ MD Unavailable Unavailab le SARAVANAN (CLEMENCIA), Tawana MARTINEZ MD Unavailable Unavailab le SARAVANAN (CLEMENCIA), Tawana MARTINEZ MD Unavailable Unavailab le SARAVANAN (CLEMENCIA), Tawana MARTINEZ MD Unavailable Unavailab le SARAVANAN (CLEMENCIA), Tawana MARTINEZ MD Unavailable Unavailab le SARAVANAN (CLEMENCIA), Tawana MARTINEZ MD Unavailable Unavailab le SARAVANAN (CLEMENCIA), Tawana MARTINEZ MD Unavailable Unavailab le SARAVANAN (CLEMENCIA), Tawana MARTINEZ MD Unavailable Unavailab le SARAVANAN (CLEMENCIA), Tawana MARTINEZ MD Unavailable Unavailab le SARAVANAN (CLEMENCIA), Tawana MARTINEZ MD Unavailable Unavailab le SARAVANAN (CLEMENCIA), Tawana MARTINEZ MD Unavailable Unavailab le SARAVANAN (CLEMENCIA), Tawana MARTINEZ MD Unavailable Unavailab le SARAVANAN (CLEMENCIA), Tawana MARTINEZ MD Unavailable Unavailab le SARAVANAN (CLEMENCIA), Tawana MARTINEZ MD Unavailable Unavailab le SARAVANAN (CLEMENCIA), Tawana MARTINEZ MD Unavailable Unavailab le SARAVANAN (CLEMENCIA), Tawana MARTINEZ MD Unavailable Unavailab le SARAVANAN (CLEMENCIA), Tawana MARTINEZ MD Unavailable Unavailab le SARAVANAN (CLEMENCIA), Tawana MARTINEZ MD Unavailable Unavailab le SARAVANAN (CLEMENCIA), Tawana MARTINEZ MD Unavailable Unavailab le SARAVANAN (CLEMENCIA), Taawna MARTINEZ MD Unavailable Unavailab le SARAVANAN (CLEMENCIA), Tawana MARTINEZ MD Unavailable Unavailab le SARAVANAN (CLEMENCIA), Tawana MARTINEZ MD Unavailable Unavailab le SARAVANAN (CLEMENCIA), Tawana MARTINEZ MD Unavailable Unavailab le SARAVANAN (CLEMENCIA), Tawana MARTINEZ MD Unavailable Unavailab le SARAVANAN (CLEMENCIA), Tawana MARTINEZ MD Unavailable Unavailab le SARAVANAN (CLEMENCIA), Tawana MARTINEZ MD Unavailable Unavailab le SARAVANAN (CLEMENCIA), Tawana MARTINEZ MD Unavailable Unavailab le SARAVANAN (CLEMENCIA), Tawana MARTINEZ MD Unavailable Unavailab le SARAVANAN (CLEMENCIA), Tawana MARTINEZ MD Unavailable Unavailab le SARAVANAN (CLEMENCIA), Tawana MARTINEZ MD Unavailable Unavailab le SARAVANAN (CLEMENCIA), Tawana MARTINEZ MD Unavailable Unavailab le SARAVANAN (CLEMENCIA), Tawana MARTINEZ MD Unavailable Unavailab le SARAVANAN (CLEMENCIA), Tawana MARTINEZ MD Unavailable Unavailab le SARAVANAN (CLEMENCIA), Tawana MARTINEZ MD Unavailable Unavailab le SARAVANAN (CLEMENCIA), Tawana MARTINEZ MD Unavailable Unavailab le SARAVANAN (CLEMENCIA), Tawana MARTINEZ MD Unavailable Unavailab Jennifer Funk MD Unavailable Unavailable Jennifer LAZO MD Unavailable Unavailable Jennifer LAZO MD Unavailable Unavailable Jennifer LAZO MD Unavailable Unavailable LAZOJennifer MD Unavailable Unavailable LAZO E TYSON BISWAS Unavailable Unavailable LAZO E TYSON BISWAS Unavailable Unavailable LAZO E TYSON BISWAS Unavailable Unavailable LAZO E TYSON BISWAS Unavailable Unavailable LAZO, E TYSON BISWAS Unavailable Unavailable LAZO, E TYSON BISWAS Unavailable Unavailable LAZO E TYSON BISWAS Unavailable Unavailable LAZO E TYSON BISWAS Unavailable Unavailable LAZO, E TYSON BISWAS Unavailable Unavailable LAZO, E TYSON BISWAS Unavailable Unavailable LAZO E TYSON BISWAS Unavailable Unavailable LAZO, E TYSON BISWAS Unavailable Unavailable LAZO, E TYSON BISWAS Unavailable Unavailable LAZO E TYSON BISWAS Unavailable Unavailable LAZO E TYSON BISWAS Unavailable Unavailable LAZO E TYSON BISWAS Unavailable Unavailable LAZO, E TYSON BISWAS Unavailable Unavailable LAZO, E TYSON BISWAS Unavailable Unavailable LAZO, E TYSON BISWAS Unavailable Unavailable LAZO, E TYSON BISWAS Unavailable Unavailable LAZO, E TYSON BISWAS Unavailable Unavailable LAZO, E TYSON BISWAS Unavailable Unavailable LAZO, E TYSON BISWAS Unavailable Unavailable LAZO, E TYSON BISWAS Unavailable Unavailable LAZO, E TYSON BISWAS Unavailable Unavailable LAZO, E TYSON BISWAS Unavailable Unavailable LAZO, E TYSON BISWAS Unavailable Unavailable LAZO, E TYSON BISWAS Unavailable Unavailable LAZO, E TYSON BISWAS Unavailable Unavailable LAZO E TYSON BISWAS Unavailable Unavailable LAZO E TYSON BISWAS Unavailable Unavailable LAZO E TYSON BISWAS Unavailable Unavailable LAZO, E TYSON BISWAS Unavailable Unavailable LAZO, E TYSON BISWAS Unavailable Unavailable LAZO, E TYSON BISWAS Unavailable Unavailable LAZO, E TYSON BISWAS Unavailable Unavailable LAZO, E TYSON BISWAS Unavailable Unavailable LAZO, E TYSON BISWAS Unavailable Unavailable LAZO E TYSON BISWAS Unavailable Unavailable LAZO E TYSON BISWAS Unavailable Unavailable LAZO E TYSON BISWAS Unavailable Unavailable LAZO E TYSON BISWAS Unavailable Unavailable LAZO E TYSON BISWAS Unavailable Unavailable LAZO E TYSON BISWAS Unavailable Unavailable LAZO E TYSON BISWAS Unavailable Unavailable LAZOJennifer MD Unavailable Unavailable LAZO E TYSON BISWAS Unavailable Unavailable LAZO E TYSON BISWAS Unavailable Unavailable LAZO, E TYSON BISWAS Unavailable Unavailable Layton Barron MD Unavailable Unavailable Layton Barron MD Unavailable Unavailable Layton Barron MD Unavailable Unavailable Layton Barron MD Unavailable Unavailable Layton Barron MD Unavailable Unavailable Layton Barron MD Unavailable Unavailable Layton Barron MD Unavailable Unavailable Layton Barron MD Unavailable Unavailable Layton Barron MD Unavailable Unavailable Layton Barron MD Unavailable Unavailable Layton Barron MD Unavailable Unavailable Layton Barron MD Unavailable Unavailable Jason, Layton Mckoy MD Unavailable Unavailable Jason, Layton Mckoy MD Unavailable Unavailable Jason, Layton Mckoy MD Unavailable Unavailable Jason, Layton Mckoy MD Unavailable Unavailable Jason, A Leelee BISWAS Unavailable Unavailable Jason, Layton Mckoy MD Unavailable Unavailable Jason, Layton Mckoy MD Unavailable Unavailable Jason, Layton Mckoy MD Unavailable Unavailable Jason, Layton Mckoy MD Unavailable Unavailable Jason, Layton Mckoy MD Unavailable Unavailable Jason, A Leelee BISWAS Unavailable Unavailable Jason, A Leelee BISWAS Unavailable Unavailable Jason, A Leelee BISWAS Unavailable Unavailable Jason, A Leelee BISWAS Unavailable Unavailable Jason, A Leelee BISWAS Unavailable Unavailable Jason, Layton Mckoy MD Unavailable Unavailable Jason, Layton Mckoy MD Unavailable Unavailable Jason, A Leelee BISWAS Unavailable Unavailable Jason, A Leelee BISWAS Unavailable Unavailable Jason, A Leelee BISWAS Unavailable Unavailable Jason, A Leelee BISWAS Unavailable Unavailable Jason, A Leelee BISWAS Unavailable Unavailable Jason, A Leelee BISWAS Unavailable Unavailable Jason, A Leelee BISWAS Unavailable Unavailable Jason, A Leelee BISWAS Unavailable Unavailable Jason, A Leelee BISWAS Unavailable Unavailable Jason, A Leelee BISWAS Unavailable Unavailable Jason, A Leelee BISWAS Unavailable Unavailable Jason, A Leelee BISWAS Unavailable Unavailable Jason, A Leelee BISWAS Unavailable Unavailable Jason, A Leelee BISWAS Unavailable Unavailable Jason, Layton Mckoy MD Unavailable Unavailable Jason, Layton Mckoy MD Unavailable Unavailable Jason, A Leelee BISWAS Unavailable Unavailable Jason, A Leelee BISWAS Unavailable Unavailable Jason, A Leelee BISWAS Unavailable Unavailable Jason, A Leelee BISWAS Unavailable Unavailable Jason, A Leelee BISWAS Unavailable Unavailable Jason, A Leelee BISWAS Unavailable Unavailable Jason, A Leelee BISWAS Unavailable Unavailable Jason, Layton Mckoy MD Unavailable Unavailable Jason, Layton Mckoy MD Unavailable Unavailable Jason, Layton Mckoy MD Unavailable Unavailable Jason, Layton Mckoy MD Unavailable Unavailable Jason, A Leelee BISWAS Unavailable Unavailable Jason, Layton Mckoy MD Unavailable Unavailable Jason, Layton Mckoy MD Unavailable Unavailable Jason, Layton Mckoy MD Unavailable Unavailable Jason, Layton Mckoy MD Unavailable Unavailable Jason, Layton Mckoy MD Unavailable Unavailable Jason, A Leelee BISWAS Unavailable Unavailable Jason, A Leelee BISWAS Unavailable Unavailable Jason, A Leelee BISWAS Unavailable Unavailable Jason, A Leelee BISWAS Unavailable Unavailable Jason, A Leelee BISWAS Unavailable Unavailable Jason, A Leelee BISWAS Unavailable Unavailable Jason, Layton Mckoy MD Unavailable Unavailable Jason, Layton Mckoy MD Unavailable Unavailable Jason, Layton Mckoy MD Unavailable Unavailable Jason, Layton Mckoy MD Unavailable Unavailable Jason, Layton Mckoy MD Unavailable Unavailable Jason, Layton Mckoy MD Unavailable Unavailable Jason, Layton Mckoy MD Unavailable Unavailable Jason, Layton Mckoy MD Unavailable Unavailable Jason, A Leelee BISWAS Unavailable Unavailable Jason, A Leelee BISWAS Unavailable Unavailable Jason, A Leelee BISWAS Unavailable Unavailable Jason, A Leelee BISWAS Unavailable Unavailable Jason, A Leelee BISWAS Unavailable Unavailable Jason, A Leelee BISWAS Unavailable Unavailable Whitewood, Suellen RESEARCH ATTORNEY Unavailable Unavailable Whitewood, Suellen RESEARCH ATTORNEY Unavailable Unavailable Whitewood, Suellen RESEARCH ATTORNEY Unavailable Unavailable Whitewood, Suellen RESEARCH ATTORNEY Unavailable Unavailable Whitewood, Suellen RESEARCH ATTORNEY Unavailable Unavailable Whitewood, Suellen RESEARCH ATTORNEY Unavailable Unavailable Whitewood, Suellen RESEARCH ATTORNEY Unavailable Unavailable Whitewood, Suellen RESEARCH ATTORNEY Unavailable Unavailable Whitewood, Suellen RESEARCH ATTORNEY Unavailable Unavailable Whitewood, Suellen RESEARCH ATTORNEY Unavailable Unavailable Whitewood, Suellen RESEARCH ATTORNEY Unavailable Unavailable Whitewood, Suellen RESEARCH ATTORNEY Unavailable Unavailable Whitewood, Suellen RESEARCH ATTORNEY Unavailable Unavailable Whitewood, Suellen RESEARCH ATTORNEY Unavailable Unavailable Whitewood, Suellen RESEARCH ATTORNEY Unavailable Unavailable Whitewood, Suellen RESEARCH ATTORNEY Unavailable Unavailable Whitewood, Suellen RESEARCH ATTORNEY Unavailable Unavailable Whitewood, Suellen RESEARCH ATTORNEY Unavailable Unavailable Whitewood, Suellen RESEARCH ATTORNEY Unavailable Unavailable Whitewood, Suellen RESEARCH ATTORNEY Unavailable Unavailable Whitewood, Suellen RESEARCH ATTORNEY Unavailable Unavailable Whitewood, Suellen RESEARCH ATTORNEY Unavailable Unavailable Whitewood, Suellen RESEARCH ATTORNEY Unavailable Unavailable Whitewood, Suellen RESEARCH ATTORNEY Unavailable Unavailable Whitewood, Suellen RESEARCH ATTORNEY Unavailable Unavailable Whitewood, Suellen RESEARCH ATTORNEY Unavailable Unavailable Whitewood, Suellen RESEARCH ATTORNEY Unavailable Unavailable Whitewood, Suellen RESEARCH ATTORNEY Unavailable Unavailable Whitewood, Suellen RESEARCH ATTORNEY Unavailable Unavailable Whitewood, Suellen RESEARCH ATTORNEY Unavailable Unavailable Whitewood, Suellen RESEARCH ATTORNEY Unavailable Unavailable Whitewood, Suellen RESEARCH ATTORNEY Unavailable Unavailable Whitewood, Suellen RESEARCH ATTORNEY Unavailable Unavailable Whitewood, Suellen RESEARCH ATTORNEY Unavailable Unavailable Whitewood, Ambreen Paige RESEARCH ATTORNEY Unavailable Unavailable Whitewood, Ambreen Paige RESEARCH ATTORNEY Unavailable Unavailable OVI, L LUCAS PA Unavailable Unavailable OVI, L LUCAS PA Unavailable Unavailable OVI, L LUCAS PA Unavailable Unavailable OVI, L LUCAS PA Unavailable Unavailable OVI, L LUCAS PA Unavailable Unavailable OVI, L LUCAS PA Unavailable Unavailable OVI, L LUCAS PA Unavailable Unavailable OVI, L LUCAS PA Unavailable Unavailable OVI, L LUCAS PA Unavailable Unavailable OVI, L LUCAS PA Unavailable Unavailable OVI, L LUCAS PA Unavailable Unavailable OVI, L LUCAS PA Unavailable Unavailable OVI, L LUCAS PA Unavailable Unavailable OVI, L LUCAS PA Unavailable Unavailable OVI, L LUCAS PA Unavailable Unavailable OVI, L LUCAS PA Unavailable Unavailable VIANNEY, STEW PA Unavailable Unavailable VIANNEY, STEW PA Unavailable Unavailable IVANNEY, STEW PA Unavailable Unavailable VIANNEY, STEW PA Unavailable Unavailable VIANNEY, STEW PA Unavailable Unavailable VIANNEY, STEW PA Unavailable Unavailable VIANNEY, STEW PA Unavailable Unavailable VIANNEY, STEW PA Unavailable Unavailable VIANNEY, STEW PA Unavailable Unavailable VIANNEY, STEW PA Unavailable Unavailable VIANNEY, STEW PA Unavailable Unavailable VIANNEY, STEW PA Unavailable Unavailable VIANNEY, STEW PA Unavailable Unavailable VIANNEY, STEW PA Unavailable Unavailable VIANNEY, STEW PA Unavailable Unavailable VIANNEY, STEW PA Unavailable Unavailable VIANNEY, STEW PA Unavailable Unavailable VIANNEY, STEW PA Unavailable Unavailable VIANNEY, STEW PA Unavailable Unavailable VIANNEY, STEW PA Unavailable Unavailable VIANNEY, STEW PA Unavailable Unavailable VIANNEY, STEW PA Unavailable Unavailable VIANNEY, STEW PA Unavailable Unavailable VIANNEY, STEW PA Unavailable Unavailable VIANNEY, STEW PA Unavailable Unavailable VIANNEY, STEW PA Unavailable Unavailable VIANNEY, STEW PA Unavailable Unavailable VIANNEY, STEW PA Unavailable Unavailable VIANNEY, STEW PA Unavailable Unavailable VIANNEY, STEW PA Unavailable Unavailable VIANNEY, STEW PA Unavailable Unavailable VIANNEY, STEW PA Unavailable Unavailable VIANNEY, STEW PA Unavailable Unavailable VIANNEY, STEW PA Unavailable Unavailable VIANNEY, STEW PA Unavailable Unavailable VIANNEY, STEW PA Unavailable Unavailable DEVINCENTIS III, F AMANDA MD Unavailable Unavailabl e DEVINCENTIS III, F AMANDA MD Unavailable Unavailabl e DEVINCENTIS III, F AMANDA MD Unavailable Unavailabl e DEVINCENTIS III, F AMANDA MD Unavailable Unavailabl e DEVINCENTIS III, F AMANDA MD Unavailable Unavailabl e DEVINCENTIS III, F AMANDA MD Unavailable Unavailabl e DEVINCENTIS III, F AMANDA MD Unavailable Unavailabl e DEVINCENTIS III, F AMANDA MD Unavailable Unavailabl e DEVINCENTIS III, F AMANDA MD Unavailable Unavailabl e DEVINCENTIS III, F AMANDA MD Unavailable Unavailabl e DEVINCENTIS III, F AMANDA MD Unavailable Unavailabl e DEVINCENTIS III, F AMANDA MD Unavailable Unavailabl e DEVINCENTIS III, F AMANDA MD Unavailable Unavailabl e DEVINCENTIS III, F AMANDA MD Unavailable Unavailabl e DEVINCENTIS III, F AMANDA MD Unavailable Unavailabl e DEVINCENTIS III, F AMANDA MD Unavailable Unavailabl e DEVINCENTIS III, F AMANDA MD Unavailable Unavailabl e DEVINCENTIS III, F AMANDA MD Unavailable Unavailabl e DEVINCENTIS III, F AMANDA MD Unavailable Unavailabl e DEVINCENTIS III, F AMANDA MD Unavailable Unavailabl e DEVINCENTIS III, F AMANDA MD Unavailable Unavailabl e DEVINCENTIS III, F AMANDA MD Unavailable Unavailabl e DEVINCENTIS III, F AMANDA MD Unavailable Unavailabl e DEVINCENTIS III, F AMANDA MD Unavailable Unavailabl e DEVINCENTIS III, F AMANDA MD Unavailable Unavailabl e DEVINCENTIS III, F MAANDA MD Unavailable Unavailabl e DEVINCENTIS III, F AMANDA MD Unavailable Unavailabl e DEVINCENTIS III, F AMANDA MD Unavailable Unavailabl e DEVINCENTIS III, F AMANDA MD Unavailable Unavailabl e DEVINCENTIS III, F AMANDA MD Unavailable Unavailabl e DEVINCENTIS III, F AMANDA MD Unavailable Unavailabl e DEVINCENTIS III, F AMANDA MD Unavailable Unavailabl e DEVINCENTIS III, F AMANDA MD Unavailable Unavailabl e DEVINCENTIS III, F AMANDA MD Unavailable Unavailabl e DEVINCENTIS III, F AMANDA MD Unavailable Unavailabl e DEVINCENTIS III, F AMANDA MD Unavailable Unavailabl e DEVINCENTIS III, F AMANDA MD Unavailable Unavailabl e DEVINCENTIS III, F AMANDA MD Unavailable Unavailabl e DEVINCENTIS III, F AMANDA MD Unavailable Unavailabl e DEVINCENTIS III, F AMANDA MD Unavailable Unavailabl e DEVINCENTIS III, F AMANDA MD Unavailable Unavailabl e DEVINCENTIS III, F AMANDA MD Unavailable Unavailabl e DEVINCENTIS III, F AMANDA MD Unavailable Unavailabl e DEVINCENTIS III, F AMANDA MD Unavailable Unavailabl e DEVINCENTIS III, F AMANDA MD Unavailable Unavailabl e DEVINCENTIS III, F AMANDA MD Unavailable Unavailabl e DEVINCENTIS III, F AMANDA MD Unavailable Unavailabl e DEVINCENTIS III, F AMANDA MD Unavailable Unavailabl e DEVINCENTIS III, F AMANDA MD Unavailable Unavailabl e DEVINCENTIS III, F AMANDA MD Unavailable Unavailabl e DEVINCENTIS III, F AMANDA MD Unavailable Unavailabl e DEVINCENTIS III, F AMANDA MD Unavailable Unavailabl e DEVINCENTIS III, F AMANDA MD Unavailable Unavailabl e DEVINCENTIS III, F AMANDA MD Unavailable Unavailabl e DEVINCENTIS III, F AMANDA MD Unavailable Unavailabl e DEVINCENTIS III, F AMANDA MD Unavailable Unavailabl e DEVINCENTIS III, F AMANDA MD Unavailable Unavailabl e DEVINCENTIS III, F AMANDA MD Unavailable Unavailabl e Re-disclosure Warning The records that you are about to access may contain information from federally-assisted alcohol or drug abuse programs. If such information is present, then the following federally mandated warning applies: This information has been disclosed to you from records protected by federal confidentiality rules (42 CFR part 2). The federal rules prohibit you from making any further disclosure of this information unless further disclosure is expressly permitted by the written consent of the person to whom it pertains or as otherwise permitted by 42 CFR part 2. A general authorization for the release of medical or other information is NOT sufficient for this purpose. The Federal rules restrict any use of the information to criminally investigate or prosecute any alcohol or drug abuse patient.The records that you are about to access may contain highly sensitive health information, the redisclosure of which is protected by Article 27-F of the [facility] Public Health law. If you continue you may have access to information: Regarding HIV / AIDS; Provided by facilities licensed or operated by the [facility] Office of Mental Health; or Provided by the [facility] Office for People With Developmental Disabilities. If such information is present, then the following [facility] mandated warning applies: This information has been disclosed to you from confidential records which are protected by state law. State law prohibits you from making any further disclosure of this information without the specific written consent of the person to whom it pertains, or as otherwise permitted by law. Any unauthorized further disclosure in violation of state law may result in a fine or chcf sentence or both. A general authorization for the release of medical or other information is NOT sufficient authorization for further disc losure. Family History Family Member Name Family Member Gender Family Member Status Date o f Status Description Data Source(s) Unknown Unknown Problem [facility] ([facility] Unknown Male Problem [facility] ([facility]) deceaed Encounters Encounter Providers Location Date Indications Data Source(s ) Outpatient Attender: AMANDA PRATT [facility] Office 07/17/2021 03:15:00 PM EDT [facility] ([facility] Attender: MICHELLE MCKOY) MDReferrer: Christiane LAZO MD 07/07/2021 08:21:09 PM EDT [facility] Outpatient Attender: Grecia Foreman [facility] Main Office 06/26/2021 09:30:00 AM EDT [facility] ([facility] Outpatient Attender: LUCAS HONG Main Office 06/16/2021 0 1:00:00 PM EDT MED[facility] ([facility]) Outpatient Attender: Grecia Foreman [facility] Main Office 06/15/2021 09:15:00 AM EDT MED[facility] ([facility]) Outpatient Attender: Grecia Foreman [facility] Main Office 06/05/2021 11:00:00 AM EDT MEDENT ([facility]) ( GYNANN) [facility] Yearly [employer]M [employer] Exam [id number] [place] [address] 04/27/2021 12:00:00 AM EDT eCW1 (Critical access hospital) Outpatient Attender: Grecia Foreman [facility] Main Office 04/05/2021 12:15:00 PM EDT MED[facility] ([facility]) Outpatient Attender: Grecia Foreman [facility] Main Office 03/28/2021 09:30:00 AM EDT MED[facility] ([facility]) Outpatient Attender: Grecia Foreman [facility] Main Office 03/20/2021 11:45:00 AM EDT MED[facility] ([facility]) Outpatient Attender: Grecia Foreman [facility] Main Office 03/09/2021 12:30:00 PM EDT MED[facility] ([facility]) Outpatient Attender: Grecia Lintonien [facility] Main Office 02/14/2021 10:15:00 AM EDT MED[facility] ([facility]) Outpatient Attender: Leelee Barron MD Main Office 01/24/2021 10:15:0 0 AM EDT [facility] ([facility] Outpatient Attender: AMANDA PRATT [facility] Office 01/05/2021 01:30:00 PM EST [facility] ([facility] ) Outpatient Attender: Danielle lozada 12/27/2020 07:30:00 AM EST [facility] ([facility]) Outpatient Attender: Yenifer Montes PA-C Main Office 12/15/2020 12:45:00 PM EST [facility] ([facility] Outpatient Attender: STEW Ramirez Prima 11/07/2020 08:15:00 AM EST MED[facility] ([facility]) Outpatient Attender: Leelee Barron MD Main Office 07/27/2020 11:30:0 0 AM EDT [facility] ([facility] Immunizations Vaccine Date Status Description Data Source(s) New in 2012. IIV4 08/09/2021 10:45:00 AM EDT completed [facility] ([facility] COVID-19 VACCINE Moderna 01/13/2021 12:00:00 AM EST completed [facility] Vaccine Series Complete: YESThis Data wa s Submitted to [facility] Via [employer]. Moderna Sars-(Covid-19) vaccine, mRNA, LNP-S, PF, 100 mcg/ 0.5 mL 01/12/2021 11:00:00 PM EST completed [facility] ([facility] COVID-19 VACCINE Moderna 12/16/2020 12:00:00 AM EST completed [facility] Vaccine Series Complete: NOThis Data was Submitted to [facility] Via [employer]. Moderna Sars-(Covid-19) vaccine, mRNA, LNP-S, PF, 100 mcg/ 0.5 mL 12/15/2020 11:00:00 PM EST completed [facility] ([facility] New in 2012. IIV4 07/27/2020 12:02:00 PM EDT completed [facility] ([facility] Medications Medication Brand Name Start Date Product Form Dose Route Admi nistrative Instructions Pharmacy Instructions Status Indications Reaction Description Data Source(s) 24 HR Metformin hydrochloride 500 MG Extended Release Oral T ablet METFORMIN HCL 07/26/2021 12:00:00 AM EDT tablet extended release 24 hr 60 TAKE TWO TABLETS BY MOUTH EVERY DAY WITH LARGEST MEAL TAKE TWO TABLETS BY MOUTH EVERY DAY WITH LARGEST MEAL SOLD: 07/31/2021 [facility] carvedilol 25 MG Oral Tablet CARVEDILOL 07/26/2021 12:00:00 AM EDT tab let 60 TAKE ONE TABLET BY MOUTH TWICE A DAY TAKE ONE TABLET BY MOUTH TWICE A DAY SOLD: 07/31/2021 [facility] 80 mg 07/24/2021 12:00:00 AM EDT tablet 30 TAKE ONE TABLET BY MOUTH AT BEDTIME TAKE ONE TABLET BY MOUTH AT BEDTIME SOLD: 07/31/2021 [facility] Glucosamine Chondroitin Advanced 06/29/2021 12:00:00 AM EDT ORAL active [facility] ([facility]) Cephalexin 500 MG Oral Tablet Cephalexin 06/15/2021 12:00:00 AM EDT ORAL completed [facility] ([facility] Mupirocin 0.02 MG/MG Topical Ointment Mupirocin 06/05/2021 12:00:00 AM EDT completed [facility] ([facility] Mupirocin 0.02 MG/MG Topical Ointment Mupirocin 06/05/2021 12:00:00 AM EDT active [facility] ([facility]) 24,000-76,000 -120,000 unit 05/31/2021 12:00:00 AM EDT capsule,delayed release(DR/EC) 330 TAKE THREE CAPSULES BY MOUTH THREE TIMES A DAY BEFORE MEALS AND 1 CAPSULE BEFORE SNACKS TAKE THREE CAPSULES BY MOUTH THREE TIMES A DAY BEFORE MEALS AND 1 CAPSULE BEFORE SNACKS SOLD: 06/01/2021 [facility] 100 mg 05/02/2021 12:00:00 AM EDT tablet 30 TAKE ONE TABLET BY MOUTH EVERY DAY TAKE ONE TABLET BY MOUTH EVERY DAY SOLD: 05/30/2021 [facility] 100 mg 05/02/2021 12:00:00 AM EDT tablet 30 TAKE ONE TABLET BY MOUTH EVERY DAY TAKE ONE TABLET BY MOUTH EVERY DAY SOLD: 05/04/2021 [facility] 100 mg 05/02/2021 12:00:00 AM EDT tablet 30 TAKE ONE TABLET BY MOUTH EVERY DAY TAKE ONE TABLET BY MOUTH EVERY DAY SOLD: 07/31/2021 [facility] 100 mg 05/02/2021 12:00:00 AM EDT tablet 30 TAKE ONE TABLET BY MOUTH EVERY DAY TAKE ONE TABLET BY MOUTH EVERY DAY SOLD: 06/27/2021 [facility] carvedilol 25 MG Oral Tablet CARVEDILOL 04/26/2021 12:00:00 AM EDT tab let 60 TAKE ONE TABLET BY MOUTH TWICE A DAY TAKE ONE TABLET BY MOUTH TWICE A DAY SOLD: 05/02/2021 [facility] carvedilol 25 MG Oral Tablet CARVEDILOL 04/26/2021 12:00:00 AM EDT tab let 60 TAKE ONE TABLET BY MOUTH TWICE A DAY TAKE ONE TABLET BY MOUTH TWICE A DAY SOLD: 06/27/2021 [facility] carvedilol 25 MG Oral Tablet CARVEDILOL 04/26/2021 12:00:00 AM EDT tab let 60 TAKE ONE TABLET BY MOUTH TWICE A DAY TAKE ONE TABLET BY MOUTH TWICE A DAY SOLD: 05/30/2021 [facility] dorzolamide 20 MG/ML / Timolol 5 MG/ML Ophthalmic Solu tion 22.3-6.8 mg/mL DORZOLAMIDE HCL/TIMOLOL MALEAT 03/28/2021 12:00:00 AM EDT drops 10 INSTILL ONE DROP INTO RIGHT EYE TWO TIMES A DAY DIRECTED INSTILL ONE DROP INTO RIGHT EYE TWO TIMES A DAY DIRECTED SOLD: 03/29/2021 [facility] dorzolamide 20 MG/ML / Timolol 5 MG/ML Ophthalmic Solu tion 22.3-6.8 mg/mL DORZOLAMIDE HCL/TIMOLOL MALEAT 03/28/2021 12:00:00 AM EDT drops 10 INSTILL ONE DROP INTO RIGHT EYE TWO TIMES A DAY DIRECTED INSTILL ONE DROP INTO RIGHT EYE TWO TIMES A DAY DIRECTED SOLD: 07/24/2021 [facility] 25 mg 2021 12:00:00 AM EDT tablet 15 TAKE 1/2 TABLET BY MOUTH ONCE DAILY TAKE 1/2 TABLET BY MOUTH ONCE DAILY SOLD: 03/29/2021 [facility] 25 mg 2021 12:00:00 AM EDT tablet 30 TAKE ONE TABLET BY MOUTH ONCE DAILY TAKE ONE TABLET BY MOUTH ONCE DAILY SOLD: 06/27/2021 [facility] 25 mg 2021 12:00:00 AM EDT tablet 15 TAKE 1/2 TABLET BY MOUTH ONCE DAILY TAKE 1/2 TABLET BY MOUTH ONCE DAILY SOLD: 07/31/2021 [facility] 25 mg 2021 12:00:00 AM EDT tablet 30 TAKE ONE TABLET BY MOUTH ONCE DAILY TAKE ONE TABLET BY MOUTH ONCE DAILY SOLD: 07/31/2021 [facility] 25 mg 2021 12:00:00 AM EDT tablet 30 TAKE ONE TABLET BY MOUTH ONCE DAILY TAKE ONE TABLET BY MOUTH ONCE DAILY SOLD: 03/29/2021 [facility] 25 mg 2021 12:00:00 AM EDT tablet 30 TAKE ONE TABLET BY MOUTH ONCE DAILY TAKE ONE TABLET BY MOUTH ONCE DAILY SOLD: 05/02/2021 [facility] 25 mg 2021 12:00:00 AM EDT tablet 15 TAKE 1/2 TABLET BY MOUTH ONCE DAILY TAKE 1/2 TABLET BY MOUTH ONCE DAILY SOLD: 05/30/2021 [facility] 25 mg 2021 12:00:00 AM EDT tablet 15 TAKE 1/2 TABLET BY MOUTH ONCE DAILY TAKE 1/2 TABLET BY MOUTH ONCE DAILY SOLD: 06/27/2021 [facility] 25 mg 2021 12:00:00 AM EDT tablet 30 TAKE ONE TABLET BY MOUTH ONCE DAILY TAKE ONE TABLET BY MOUTH ONCE DAILY SOLD: 05/30/2021 [facility] 25 mg 2021 12:00:00 AM EDT tablet 15 TAKE 1/2 TABLET BY MOUTH ONCE DAILY TAKE 1/2 TABLET BY MOUTH ONCE DAILY SOLD: 05/02/2021 [facility] Cephalexin 500 MG Oral Capsule [Keflex] Keflex 03/03/2021 12:00:0 0 AM EDT ORAL completed [facility] ([facility]) Fluorouracil 50 MG/ML Topical Cream [Efudex] Efudex 12:00:00 AM EDT active MEDENT ( [facility]) 5 % 02/27/2021 12:00:00 AM EDT cream 40 APPLY TO SCALP SPARINGLY TWO TIMES A DAY APPLY TO SCALP SPARINGLY TWO TIMES A DAY SOLD: 03/01/2021 [facility] carvedilol 25 MG Oral Tablet CARVEDILOL 01/23/2021 12:00:00 AM EDT tab let 60 TAKE ONE TABLET BY MOUTH TWICE A DAY TAKE ONE TABLET BY MOUTH TWICE A DAY SOLD: 01/26/2021 [facility] carvedilol 25 MG Oral Tablet CARVEDILOL 01/23/2021 12:00:00 AM EDT tab let 60 TAKE ONE TABLET BY MOUTH TWICE A DAY TAKE ONE TABLET BY MOUTH TWICE A DAY SOLD: 02/24/2021 [facility] carvedilol 25 MG Oral Tablet CARVEDILOL 01/23/2021 12:00:00 AM EDT tab let 60 TAKE ONE TABLET BY MOUTH TWICE A DAY TAKE ONE TABLET BY MOUTH TWICE A DAY SOLD: 03/29/2021 [facility] Amoxicillin 875 MG Oral Tablet Amoxicillin 12/27/2020 12:00:00 AM EST ORAL active MEDENT ([facility]) 875 mg 12/27/2020 12:00:00 AM EST tablet 20 TAKE ONE TABLET BY MOUTH TWO TIMES A DAY DIRECTED FOR 10 DAYS TAKE ONE TABLET BY MOUTH TWO TIMES A DAY DIRECTED FOR 10 DAYS SOLD: 12/27/2020 [facility] Escitalopram 10 MG Oral Tablet Escitalopram Oxalate 12/15/2020 1 2:00:00 AM EST ORAL active [facility] ( [facility] 500 mg 11/23/2020 12:00:00 AM EST tablet extended release 24 hr 60 TAKE TWO TABLETS BY MOUTH EVERY DAY TAKE WITH LARGEST MEAL TAKE TWO TABLETS BY MOUTH EVERY DAY TAKE WITH LARGEST MEAL SOLD: 12/27/2020 [facility] 24 HR Metformin hydrochloride 500 MG Extended Release Oral T ablet METFORMIN HCL 11/23/2020 12:00:00 AM EST tablet extended release 24 hr 60 TAKE TWO TABLETS BY MOUTH EVERY DAY TAKE WITH LARGEST MEAL TAKE TWO TABLETS BY MOUTH EVERY DAY TAKE WITH LARGEST MEAL SOLD: 05/30/2021 [facility] 24 HR Metformin hydrochloride 500 MG Extended Release Oral T ablet METFORMIN HCL 11/23/2020 12:00:00 AM EST tablet extended release 24 hr 60 TAKE TWO TABLETS BY MOUTH EVERY DAY TAKE WITH LARGEST MEAL TAKE TWO TABLETS BY MOUTH EVERY DAY TAKE WITH LARGEST MEAL SOLD: 06/27/2021 [facility] 500 mg 11/23/2020 12:00:00 AM EST tablet extended release 24 hr 60 TAKE TWO TABLETS BY MOUTH EVERY DAY TAKE WITH LARGEST MEAL TAKE TWO TABLETS BY MOUTH EVERY DAY TAKE WITH LARGEST MEAL SOLD: 01/26/2021 [facility] 24 HR Metformin hydrochloride 500 MG Extended Release Oral T ablet METFORMIN HCL 11/23/2020 12:00:00 AM EST tablet extended release 24 hr 60 TAKE TWO TABLETS BY MOUTH EVERY DAY TAKE WITH LARGEST MEAL TAKE TWO TABLETS BY MOUTH EVERY DAY TAKE WITH LARGEST MEAL SOLD: 03/29/2021 [facility] 500 mg 11/23/2020 12:00:00 AM EST tablet extended release 24 hr 60 TAKE TWO TABLETS BY MOUTH EVERY DAY TAKE WITH LARGEST MEAL TAKE TWO TABLETS BY MOUTH EVERY DAY TAKE WITH LARGEST MEAL SOLD: 02/24/2021 [facility] 24 HR Metformin hydrochloride 500 MG Extended Release Oral T ablet METFORMIN HCL 11/23/2020 12:00:00 AM EST tablet extended release 24 hr 60 TAKE TWO TABLETS BY MOUTH EVERY DAY TAKE WITH LARGEST MEAL TAKE TWO TABLETS BY MOUTH EVERY DAY TAKE WITH LARGEST MEAL SOLD: 05/02/2021 [facility] 500 mg 11/23/2020 12:00:00 AM EST tablet extended release 24 hr 60 TAKE TWO TABLETS BY MOUTH EVERY DAY TAKE WITH LARGEST MEAL TAKE TWO TABLETS BY MOUTH EVERY DAY TAKE WITH LARGEST MEAL SOLD: 11/26/2020 [facility] carvedilol 25 MG Oral Tablet CARVEDILOL 11/01/2020 12:00:00 AM EST tab let 60 TAKE ONE TABLET BY MOUTH TWICE A DAY TAKE ONE TABLET BY MOUTH TWICE A DAY SOLD: 11/26/2020 [facility] carvedilol 25 MG Oral Tablet CARVEDILOL 11/01/2020 12:00:00 AM EST tab let 60 TAKE ONE TABLET BY MOUTH TWICE A DAY TAKE ONE TABLET BY MOUTH TWICE A DAY SOLD: 11/01/2020 [facility] carvedilol 25 MG Oral Tablet CARVEDILOL 11/01/2020 12:00:00 AM EST tab let 60 TAKE ONE TABLET BY MOUTH TWICE A DAY TAKE ONE TABLET BY MOUTH TWICE A DAY SOLD: 12/27/2020 [facility] 500 mg 11/01/2020 12:00:00 AM EST tablet extended release 24 hr 60 TAKE TWO TABLETS BY MOUTH EVERY DAY WITH LARGEST MEAL TAKE TWO TABLETS BY MOUTH EVERY DAY WITH LARGEST MEAL SOLD: 11/01/2020 [facility] carvedilol 25 MG Oral Tablet CARVEDILOL 08/01/2020 12:00:00 AM EDT tab let 60 TAKE ONE TABLET BY MOUTH TWICE A DAY TAKE ONE TABLET BY MOUTH TWICE A DAY SOLD: 09/02/2020 [facility] carvedilol 25 MG Oral Tablet CARVEDILOL 08/01/2020 12:00:00 AM EDT tab let 60 TAKE ONE TABLET BY MOUTH TWICE A DAY TAKE ONE TABLET BY MOUTH TWICE A DAY SOLD: 10/03/2020 [facility] carvedilol 25 MG Oral Tablet CARVEDILOL 08/01/2020 12:00:00 AM EDT tab let 60 TAKE ONE TABLET BY MOUTH TWICE A DAY TAKE ONE TABLET BY MOUTH TWICE A DAY SOLD: 08/04/2020 [facility] 80 mg 07/31/2020 12:00:00 AM EDT tablet 30 TAKE ONE TABLET BY MOUTH AT BEDTIME TAKE ONE TABLET BY MOUTH AT BEDTIME SOLD: 05/30/2021 [facility] 80 mg 07/31/2020 12:00:00 AM EDT tablet 30 TAKE ONE TABLET BY MOUTH AT BEDTIME TAKE ONE TABLET BY MOUTH AT BEDTIME SOLD: 01/26/2021 [facility] atorvastatin 80 MG Oral Tablet ATORVASTATIN CALCIUM 07/31/2020 1 2:00:00 AM EDT tablet 30 TAKE ONE TABLET BY MOUTH AT BEDT DEMARIO TAKE ONE TABLET BY MOUTH AT BEDTIME SOLD: 08/04/2020 [facility] 80 mg 07/31/2020 12:00:00 AM EDT tablet 30 TAKE ONE TABLET BY MOUTH AT BEDTIME TAKE ONE TABLET BY MOUTH AT BEDTIME SOLD: 06/27/2021 [facility] atorvastatin 80 MG Oral Tablet ATORVASTATIN CALCIUM 07/31/2020 1 2:00:00 AM EDT tablet 30 TAKE ONE TABLET BY MOUTH AT BEDT DEMARIO TAKE ONE TABLET BY MOUTH AT BEDTIME SOLD: 10/03/2020 [facility] 80 mg 07/31/2020 12:00:00 AM EDT tablet 30 TAKE ONE TABLET BY MOUTH AT BEDTIME TAKE ONE TABLET BY MOUTH AT BEDTIME SOLD: 02/24/2021 [facility] atorvastatin 80 MG Oral Tablet ATORVASTATIN CALCIUM 07/31/2020 1 2:00:00 AM EDT tablet 30 TAKE ONE TABLET BY MOUTH AT BEDT DEMARIO TAKE ONE TABLET BY MOUTH AT BEDTIME SOLD: 09/02/2020 [facility] 80 mg 07/31/2020 12:00:00 AM EDT tablet 30 TAKE ONE TABLET BY MOUTH AT BEDTIME TAKE ONE TABLET BY MOUTH AT BEDTIME SOLD: 11/26/2020 [facility] 80 mg 07/31/2020 12:00:00 AM EDT tablet 30 TAKE ONE TABLET BY MOUTH AT BEDTIME TAKE ONE TABLET BY MOUTH AT BEDTIME SOLD: 03/29/2021 [facility] 80 mg 07/31/2020 12:00:00 AM EDT tablet 30 TAKE ONE TABLET BY MOUTH AT BEDTIME TAKE ONE TABLET BY MOUTH AT BEDTIME SOLD: 11/01/2020 [facility] 80 mg 07/31/2020 12:00:00 AM EDT tablet 30 TAKE ONE TABLET BY MOUTH AT BEDTIME TAKE ONE TABLET BY MOUTH AT BEDTIME SOLD: 05/02/2021 [facility] 80 mg 07/31/2020 12:00:00 AM EDT tablet 30 TAKE ONE TABLET BY MOUTH AT BEDTIME TAKE ONE TABLET BY MOUTH AT BEDTIME SOLD: 12/27/2020 [facility] 100 mg 04/27/2020 12:00:00 AM EDT tablet 30 TAKE ONE TABLET BY MOUTH EVERY DAY TAKE ONE TABLET BY MOUTH EVERY DAY SOLD: 07/05/2020 [facility] 100 mg 04/27/2020 12:00:00 AM EDT tablet 30 TAKE ONE TABLET BY MOUTH EVERY DAY TAKE ONE TABLET BY MOUTH EVERY DAY SOLD: 03/29/2021 [facility] 100 mg 04/27/2020 12:00:00 AM EDT tablet 30 TAKE ONE TABLET BY MOUTH EVERY DAY TAKE ONE TABLET BY MOUTH EVERY DAY SOLD: 11/01/2020 [facility] 100 mg 04/27/2020 12:00:00 AM EDT tablet 30 TAKE ONE TABLET BY MOUTH EVERY DAY TAKE ONE TABLET BY MOUTH EVERY DAY SOLD: 11/26/2020 [facility] 100 mg 04/27/2020 12:00:00 AM EDT tablet 30 TAKE ONE TABLET BY MOUTH EVERY DAY TAKE ONE TABLET BY MOUTH EVERY DAY SOLD: 08/04/2020 [facility] 100 mg 04/27/2020 12:00:00 AM EDT tablet 30 TAKE ONE TABLET BY MOUTH EVERY DAY TAKE ONE TABLET BY MOUTH EVERY DAY SOLD: 02/24/2021 [facility] 100 mg 04/27/2020 12:00:00 AM EDT tablet 30 TAKE ONE TABLET BY MOUTH EVERY DAY TAKE ONE TABLET BY MOUTH EVERY DAY SOLD: 09/02/2020 [facility] 100 mg 04/27/2020 12:00:00 AM EDT tablet 30 TAKE ONE TABLET BY MOUTH EVERY DAY TAKE ONE TABLET BY MOUTH EVERY DAY SOLD: 01/26/2021 [facility] 100 mg 04/27/2020 12:00:00 AM EDT tablet 30 TAKE ONE TABLET BY MOUTH EVERY DAY TAKE ONE TABLET BY MOUTH EVERY DAY SOLD: 12/27/2020 [facility] 100 mg 04/27/2020 12:00:00 AM EDT tablet 30 TAKE ONE TABLET BY MOUTH EVERY DAY TAKE ONE TABLET BY MOUTH EVERY DAY SOLD: 10/03/2020 [facility] 25 mg 03/27/2020 12:00:00 AM EDT tablet 30 TAKE ONE TABLET BY MOUTH ONCE DAILY TAKE ONE TABLET BY MOUTH ONCE DAILY SOLD: 02/24/2021 [facility] 25 mg 03/27/2020 12:00:00 AM EDT tablet 15 TAKE 1/2 TABLET BY MOUTH ONCE DAILY TAKE 1/2 TABLET BY MOUTH ONCE DAILY SOLD: 11/01/2020 [facility] 25 mg 03/27/2020 12:00:00 AM EDT tablet 30 TAKE ONE TABLET BY MOUTH ONCE DAILY TAKE ONE TABLET BY MOUTH ONCE DAILY SOLD: 09/02/2020 [facility] 25 mg 03/27/2020 12:00:00 AM EDT tablet 15 TAKE 1/2 TABLET BY MOUTH ONCE DAILY TAKE 1/2 TABLET BY MOUTH ONCE DAILY SOLD: 08/04/2020 [facility] 25 mg 03/27/2020 12:00:00 AM EDT tablet 30 TAKE ONE TABLET BY MOUTH ONCE DAILY TAKE ONE TABLET BY MOUTH ONCE DAILY SOLD: 11/26/2020 [facility] 25 mg 03/27/2020 12:00:00 AM EDT tablet 15 TAKE 1/2 TABLET BY MOUTH ONCE DAILY TAKE 1/2 TABLET BY MOUTH ONCE DAILY SOLD: 01/26/2021 [facility] 25 mg 03/27/2020 12:00:00 AM EDT tablet 15 TAKE 1/2 TABLET BY MOUTH ONCE DAILY TAKE 1/2 TABLET BY MOUTH ONCE DAILY SOLD: 10/03/2020 [facility] 25 mg 03/27/2020 12:00:00 AM EDT tablet 15 TAKE 1/2 TABLET BY MOUTH ONCE DAILY TAKE 1/2 TABLET BY MOUTH ONCE DAILY SOLD: 07/05/2020 [facility] 25 mg 03/27/2020 12:00:00 AM EDT tablet 15 TAKE 1/2 TABLET BY MOUTH ONCE DAILY TAKE 1/2 TABLET BY MOUTH ONCE DAILY SOLD: 12/27/2020 [facility] 25 mg 03/27/2020 12:00:00 AM EDT tablet 30 TAKE ONE TABLET BY MOUTH ONCE DAILY TAKE ONE TABLET BY MOUTH ONCE DAILY SOLD: 12/27/2020 [facility] 25 mg 03/27/2020 12:00:00 AM EDT tablet 15 TAKE 1/2 TABLET BY MOUTH ONCE DAILY TAKE 1/2 TABLET BY MOUTH ONCE DAILY SOLD: 09/02/2020 [facility] 25 mg 03/27/2020 12:00:00 AM EDT tablet 30 TAKE ONE TABLET BY MOUTH ONCE DAILY TAKE ONE TABLET BY MOUTH ONCE DAILY SOLD: 11/01/2020 [facility] 25 mg 03/27/2020 12:00:00 AM EDT tablet 30 TAKE ONE TABLET BY MOUTH ONCE DAILY TAKE ONE TABLET BY MOUTH ONCE DAILY SOLD: 01/26/2021 [facility] 25 mg 03/27/2020 12:00:00 AM EDT tablet 30 TAKE ONE TABLET BY MOUTH ONCE DAILY TAKE ONE TABLET BY MOUTH ONCE DAILY SOLD: 08/04/2020 [facility] 25 mg 03/27/2020 12:00:00 AM EDT tablet 15 TAKE 1/2 TABLET BY MOUTH ONCE DAILY TAKE 1/2 TABLET BY MOUTH ONCE DAILY SOLD: 11/26/2020 [facility] 25 mg 03/27/2020 12:00:00 AM EDT tablet 30 TAKE ONE TABLET BY MOUTH ONCE DAILY TAKE ONE TABLET BY MOUTH ONCE DAILY SOLD: 10/03/2020 [facility] 25 mg 03/27/2020 12:00:00 AM EDT tablet 15 TAKE 1/2 TABLET BY MOUTH ONCE DAILY TAKE 1/2 TABLET BY MOUTH ONCE DAILY SOLD: 02/24/2021 [facility] 25 mg 03/27/2020 12:00:00 AM EDT tablet 30 TAKE ONE TABLET BY MOUTH ONCE DAILY TAKE ONE TABLET BY MOUTH ONCE DAILY SOLD: 07/05/2020 [facility] 500 mg 02/23/2020 12:00:00 AM EDT tablet extended release 24 hr 60 TAKE TWO TABLETS BY MOUTH EVERY DAY WITH LARGEST MEAL TAKE TWO TABLETS BY MOUTH EVERY DAY WITH LARGEST MEAL SOLD: 08/04/2020 [facility] 500 mg 02/23/2020 12:00:00 AM EDT tablet extended release 24 hr 60 TAKE TWO TABLETS BY MOUTH EVERY DAY WITH LARGEST MEAL TAKE TWO TABLETS BY MOUTH EVERY DAY WITH LARGEST MEAL SOLD: 09/02/2020 [facility] 500 mg 02/23/2020 12:00:00 AM EDT tablet extended release 24 hr 60 TAKE TWO TABLETS BY MOUTH EVERY DAY WITH LARGEST MEAL TAKE TWO TABLETS BY MOUTH EVERY DAY WITH LARGEST MEAL SOLD: 07/05/2020 [facility] 500 mg 02/23/2020 12:00:00 AM EDT tablet extended release 24 hr 60 TAKE TWO TABLETS BY MOUTH EVERY DAY WITH LARGEST MEAL TAKE TWO TABLETS BY MOUTH EVERY DAY WITH LARGEST MEAL SOLD: 10/03/2020 [facility] 22.3-6.8 mg/mL 02/19/2020 12:00:00 AM EDT drops 10 INSTILL ONE DROP IN THE RIGHT EYE TWO TIMES A DAY DIRECTED INSTILL ONE DROP IN THE RIGHT EYE TWO TIMES A DAY DIRECTED SOLD: 08/21/2020 [facility] 22.3-6.8 mg/mL 02/19/2020 12:00:00 AM EDT drops 10 INSTILL ONE DROP IN THE RIGHT EYE TWO TIMES A DAY DIRECTED INSTILL ONE DROP IN THE RIGHT EYE TWO TIMES A DAY DIRECTED SOLD: 11/26/2020 [facility] 0.2 % 12/30/2019 12:00:00 AM EST drops 15 INSTILL 1 DROP INTO THE RIGHT EYE THREE TIMES A DAY INSTILL 1 DROP INTO THE RIGHT EYE THREE TIMES A DAY SO LD: 11/26/2020 [facility] 0.2 % 12/30/2019 12:00:00 AM EST drops 15 INSTILL 1 DROP INTO THE RIGHT EYE THREE TIMES A DAY INSTILL 1 DROP INTO THE RIGHT EYE THREE TIMES A DAY SO LD: 08/21/2020 [facility] atorvastatin 80 MG Oral Tablet ATORVASTATIN CALCIUM 07/30/2019 1 2:00:00 AM EDT tablet 30 TAKE ONE TABLET BY MOUTH AT BEDT DEMARIO TAKE ONE TABLET BY MOUTH AT BEDTIME SOLD: 07/05/2020 [facility] Insurance Providers Payer name Policy type / Coverage type Policy ID Covered democrat ID Covered democrat's relationship to sanford Policy [place] Plan Information POMCO [id number] SP [id number] Medicare Part B [facility] [id number] 0 [id number] MEDICARE [id number] SP [id number] A POMCO [id number] SP [id number] [employer] [id number] Umr Care Management [id number] MEDICARE C [id number] S [id number] ANSI-Commercial [id number] ANS-Medicare Part B [id number] Umr [facility] Part B [id number] Self [id number] Medicare [place] Primary [id number] Self [id number] ANSI-Commercial [id number] ANSI-Medicare Part B [id number] ANSI-Medicare Part B [id number] ANSI-Commercial [id number] ANSI-Commercial [id number] ANSI-Medicare Part B [id number] [id number] MRN.[id number] [id number] Self [id number] [place] [id number] MRN.[id number] Self [id number] r Medigap Part B [id number] MRN.[id number] [id number] Self [id number] [place] [id number] MRN.[id number] Self [id number] [facility] [id number] SP [id number] [facility] Ppo Medigap Part B [id number] 2.16.840.1.582644.3.227. 99.572.51310.0 Self [id number] Umr Medigap Part B [id number] 2.16.840.1.295043.3.227.99.572.3259 4.0 Self [id number] Medicare (Part B) Medicare Primary [id number] 2.16.840.1.303903.3.227.99.572.03368.0 Self 1 [id number] [facility] Ppo Medigap Part B [id number] 2.16.840.1.693237.3.227. 99.572.02602.0 Self [id number] Umr Medigap Part B [id number] 2.16.840.1.191891.3.227.99.572.3259 4.0 Self [id number] Medicare (Part B) Medicare Primary [id number] 2.16.840.1.591016.3.227.99.572.10346.0 Self 1 [id number] Umr Medigap Part B [id number] 2.16.840.1.408753.3.227.99.2809.140 3.0 Self [id number] [place] [id number] 2.16.840.1.174649.3.227.99.2809.1403.0 Self 4 [id number] [facility] [id number] SP [id number] MEDICARE [id number] SP [id number] [place] Primary [id number] 2.16.840.1.670424.3.227.99.2809.1403.0 Self 1 [id number] [facility] Medigap Part B [id number] 2.16.840.1.423940.3.227.99.2809.140 3.0 Self [id number] [place] Primary [id number] 2.16.840.1.805154.3.227.99.2809.1403.0 Self 1 [id number] [place] Primary [id number] 2.16.840.1.656904.3.227.99.2809.1403.0 Self 1 [id number] [place] [id number] Self 1 [id number] [place] [id number] [id number] Self 1 [id number] MEDICARE C [id number] S [id number] A [employer] PPO O [id number] S [id number] [place] [id number] [id number] Self 1 [id number] [employer] Ppo Medigap Part B [id number] [id number]. [id number] Self [id number] Medicare (Part B) Medicare Primary [id number] 2.16.840.1.23[id number] Self 1 [id number] [employer] Ppo Medigap Part B [id number] 2.16840.1.764835.3.227. 99.572.31003.0 Self [id number] Medicare (Part B) Medicare Primary [id number] [id number] Self 1 [id number] [employer] Ppo Medigap Part B [id number] 2.16840.1.765026.3.227. 99.572.18741.0 Self [id number] Medicare (Part B) Medicare Primary [id number] 2.16.840.1.376389.3.227.99.572.16756.0 Self 1 [id number] [employer] Ppo Medigap Part B [id number] 2.16840.1.749015.3.227. 99.572.50113.0 Self [id number] Medicare (Part B) Medicare Primary [id number] 2.16.840.1.025154.3.227.99.572.95716.0 Self 1 [id number] [employer] Ppo Medigap Part B [id number] 2.16.840.1.451066.3.227. 99.572.84774.0 Self [id number] Medicare (Part B) Medicare Primary [id number] 2.16.840.1.054058.3.227.99.572.64942.0 Self 1 [id number] [employer] Ppo Medigap Part B [id number] 2.16.840.1.598805.3.227. 99.572.18475.0 Self [id number] Medicare (Part B) Medicare Primary [id number] 2.16.840.1.819870.3.227.99.572.11948.0 Self 1 [id number] [employer] Ppo Medigap Part B [id number] 2.16.840.1.340424.3.227. 99.572.78683.0 Self [id number] Medicare (Part B) Medicare Primary [id number] 2.16.840.1.698037.3.227.99.572.23397.0 Self 1 [id number] [employer] Ppo Medigap Part B [id number] 2.16.840.1.056424.3.227. 99.572.44623.0 Self [id number] Medicare (Part B) Medicare Primary [id number] 2.16.840.1.155146.3.227.99.572.16690.0 Self 1 [id number] [employer] Ppo Medigap Part B [id number] 2.16.840.1.290906.3.227. 99.572.72030.0 Self [id number] Medicare (Part B) Medicare Primary [id number] 2.16.840.1.183382.3.227.99.572.78807.0 Self 1 [id number] [employer] Ppo [facility] Part B [id number] 2.16.840.1.491168.3.227. [id number] Self [id number] Medicare (Part B) Medicare Primary [id number] 2.16.840.1.078641.3.227.99.572.05829.0 Self 1 [id number] [employer] Ppo [facility] Part B [id number] 2.16.840.1.525336.3.227. [id number] Self [id number] Medicare (Part B) Medicare Primary [id number] 2.16.840.1.60[id number] Self 1 [id number] [place] [id number] Self [employer] [id number] Self [id number] MEDICARE [id number] SP [id number] [id number] [facility] [id number] SP [id number] [facility] [id number] SP [id number] MEDICARE [id number] SP [id number] [id number] [facility] O [id number] S [id number] Problems, Conditions, and Diagnoses Code Display Name Description Problem Type Effective Dates Data Source(s) I27.81 Chronic cor pulmonale Chronic cor pulmonale Problem 06/16/2021 12:00:00 AM EDT [facility] ([facility]) Surgeries/Procedures Procedure Description Date Indications Data Source(s) Gonioscopy W/Med Diag Eval 07/17/2021 12:00:00 AM EDT [facility] ([facility]) OFFICE OUTPATIENT VISIT 15 MINUTES 07/17/2021 12:00:00 AM EDT [facility] ([facility]) OFFICE OUTPATIENT VISIT 15 MINUTES 06/26/2021 12:00:00 AM EDT [facility] ([facility]) ECG ROUTINE ECG W/LEAST 12 LDS W/I&R 06/16/2021 12:00: 00 AM EDT [facility] ([facility]) OFFICE OUTPATIENT VISIT 25 MINUTES 06/16/2021 12:00:00 AM EDT [facility] ([facility]) OFFICE OUTPATIENT VISIT 25 MINUTES 06/15/2021 12:00:00 AM EDT [facility] ([facility]) OFFICE OUTPATIENT VISIT 25 MINUTES 06/05/2021 12:00:00 AM EDT [facility] ([facility]) OFFICE OUTPATIENT VISIT 15 MINUTES 04/05/2021 12:00:00 AM EDT [facility] ([facility]) Mammogram 04/04/2021 12:00:00 AM EDT [facility] ([facility] WTW - did not get 2017 results OFFICE OUTPATIENT VISIT 25 MINUTES 03/28/2021 12:00:00 AM EDT [facility] ([facility]) OFFICE OUTPATIENT VISIT 25 MINUTES 03/20/2021 12:00:00 AM EDT [facility] ([facility]) OFFICE OUTPATIENT VISIT 25 MINUTES 03/09/2021 12:00:00 AM EDT [facility] ([facility]) Discission Sec Mem/Ant Hyaloid;Laser Surgery OS 2020 12:00:00 AM EDT [facility] ([facility]) Shave Biopsy Of Skin, Single Lesion 02/14/2021 12:00:0 0 AM EDT [facility] ([facility]) DESTRUCTION PREMALIGNANT LESION 1ST 02/14/2021 12:00:0 0 AM EDT [facility] ([facility]) OFFICE OUTPATIENT VISIT 25 MINUTES 02/14/2021 12:00:00 AM EDT [facility] ([facility]) Diabetic Foot Exam 01/24/2021 12:00:00 AM EDT [facility] ([facility] Gonioscopy W/Med Diag Eval 01/05/2021 12:00:00 AM EST [facility] ([facility]) Scan Computer Diag Imag W/Report Optic Nerve 12:00:00 AM EST [facility] ([facility]) Results ID Date Data Source [id number] 08/03/2021 08:42:00 AM EDT [facility] ([facility] Name Value Range Interpretation Code Description Data Susan rce(s) Supporting Document(s) Hemoglobin A1c/Hemoglobin.total in Blood 6.5 % 4.8-5.6 [facility] ([facility] A courtesy copy of this report has been sent to the patient, ID Date Data Source [id number] 08/04/2021 08:09:00 AM EDT [facility] Name Value Range Interpretation Code Description Data Susan rce(s) Supporting Document(s) Hemoglobin A1c 6.5 % 4.8-5.6 Above high normal [facility] Prediabetes: 5.7 - 6.4 Diabetes: >6.4 Glycemic control for adults with diabetes: <7.0 ID Date Data Source [id number] 07/12/2021 09:16:00 AM EDT [facility] ([facility] Name Value Range Interpretation Code Description Data Ussan rce(s) Supporting Document(s) Potassium [Moles/volume] in Serum or Plasma 4.5 mmol/L 3.5-5.2 [facility] ([facility]) A courtesy copy of this report has been sent to the patient, Laboratory test finding (navigational concept) Laboratory test result [facility] ([facility]) A courtesy copy of this report has been sent to the patient, ID Date Data Source [id number] 07/13/2021 06:05:00 AM EDT [facility] Name Value Range Interpretation Code Description Data Susan rce(s) Supporting Document(s) Potassium 4.5 mmol/L 3.5-5.2 [facility] ID Date Data Source [id number] 07/05/2021 03:00:00 PM EDT [facility] Name Value Range Interpretation Code Description Data Susan rce(s) Supporting Document(s) Follow Up [facility] CWCDBz0gQaKXNzSgVUOoWwwWNWizXWafBWYlI8C8KIkdZx2SRRkteiItSNJqEk1+NDMnZD1tnc0nDNLx gMy [file] CANDY CUTTER HAND/olvvTkOuKK0B49EpRWCLSpsBBAKSuF8gri7hLani0RC3pFRH73RPKduS9EgruNSsspsg7t2TPwlC Eden/tWBVX4rKb5Re2OerQbUDnQItfq06cRts03x2/EiWgn1SOwDNJV1x6hHwFUNn+2zdVHYBtDN40NOI [file] hUqpBL3tKKotXcwGkGdN+Machine Shop Specialist/W21GG6sqRhEImss58a5MLRhNHOAeveKtFL8/yWDaSAbobjWWF3a551O [file] ONnQUnHs9vICeu5Bp9ad4i/6lYrGWbkxxk3SyGixUNZuMIdGC//u8xkWzMmuuyQtaJwTBBs3Oh4s+DOLPHIN TRAINER Ioo/OATr3Cbt+s4xYuNnVrxARRD6jwUNGgzEy1pWCv /qiQPxzlxTO8hULWJEtqSWTLl+WFawX10/LT5/DxplRMqC9Vdlp0l1G/HDIM0+UVGAUo/H+qSgh/yVEq kPJjH39+VgFB4LoUzgKtztT0+5g4YGgbVT9MNCdU0VuCHsj/vDi2WIOBHex8951YifykGzFWfXa9GVft M4q44n6tIXhxJlreIbyvO2YSpLhjKlGyeP8LEgvVTK 8d/cFoD+JjAB4bpZcIp0xlccHg/9f385ESIpk6kuLkgPaKId58AXQ1RO3vhDzpex/mQkjxL+wD75BqNA bWq7We9ebhC73wUZAwRQo1gzUi8jAUTwtoYCWNvnJ2KWtMuxcSt9A9/qbOp++00xPNtWJ/96TC3/xxRR Ml5FqZd68DkchATxyCqpwjSB9APotIqBGWV/o4ApOM IiWUG6f8y+6bVu26aORIgzQgsdkIdUNJZwzBS/g8rivy55G7udwvZ/yzY3OA1rtX4go1hKoAIyu5wCIh 2lyWslIN9tMRf2Wy7MjlS0PhvufHl4pn4ACA0tHpGdF0+3o/BhFTCVwEpI/FygQfKfxO9n681EOKkh1k sMaDVRRu6P8+s1Qle1ThtBdPw9uKDvdzcSAOIlpubc 6/g8jDSblbrqwfx3IjSzmAJXA8dJz0iC7WwfEoGXg2BJt/3WZFodCUW988wk0qWrdSqd8w4nEdN220il 6tiBm+tnbnrDG6DXzpRAioP0YR1Fyzu6x3tRRaDdZnh391hnkAf19DD5eO6mqxTrj4vJwJ/NXxIJF/Global Commodity Manager [file] pf322Pfvfzrp6V6cSNISDVb1XoT5TpUvjYrQlqVO0bC9BpePnC985zgs1wPEGY+b4RWgwHX+utilization management nurse/JXZ [file] chalk molding machine operator/iwBV/b2NpHP5B0/5vOVHBTXBSNq3f8UHFeurmsc/w25zqwX38wMHi7F3sbGVRC0vAaRrbuQxqO38a [file] WoHgG6apI4BHJRXWQYA+bETSHAAmy2OE+LUHDSj5wO NccEgmUEpLOXsU6HnvZJBuwks/1S15OPKhNYUP/SocoDTldrcwPgLyXP2x1R004hm138GsjzXq/W768n OkwikJ1oHQyGi+s66D79a5NwHuh7x2Q7oXzusgv7XZMT1VONs4+4ztj187vY7g9smC7Oc/3zEkc9Vfuf OJg5Mua2Xd+brRhvvocUFib1hxgNk7bEHM5DpiBYoi AyDLC0K2TxOhCJU7uQIRot6PBH1cXr8Iduk5otDtahkvjeq/74wENUoJ9oyOb/79ILm3M/TfGMhls9rw QpEIkxV5emRrpNyL3u48bGP42BrVbEfj5BQ/3w9iR2+CZteY4aLN8INnRTQRX1LAlqoKWFpkxN0IZwDZ g6fDzfsNXnzLIsQzmH1d/zIC+GFv6dgC20sN9AtJ+O g42O3HISAmU/VVw1ZM/Zh/wqzsKFBT5+dJEIkLEL+mU3y7GOmdtOvtmrJmMbbLSNc0sha/siwRBm7TzS rE2srqSuOiMDZXVzWazlmf25OEVZmMXmC3fkwPmQn2I1+tT7+u6edNcYH9cakPLDr4zkRa6Zswv56PwF +fJVNuqn++WMHUz39cdhoRS1MN8GKidy0tAO15rG IEcIHMLoDExRgc8ZJTzlLmNDjt2tBsx6KcAqzsz0tkurOaMsGUqCaqkauxD+Tc2FyWtBahh8UDvik0dS upbazzdvJDIHj2nHYR0mDlrPATrWcE66exBOHIAnBRGBokOdt8rKkyLfr9DHHuDlE0p1ULLyyiwIuW+E nhg1UYMdqQzgUR/C4CpchyltjacY6KBqs5QNImSx1q x9qWKjPHv5GmxxxMvOhOufOAFVWSKj0sFAkjzZLivmyQtvTSDHyvOAJp5SFsdpoyi5/hMdmXBJ0zO6tz kS+uFvCM57H+vZubJb7GRa0Q2GvNyzeUZe6n+dniEpfAgkquE0ly9xq9Ms+6i8H/K817/wRA37cZZfZ2 uqXAmFSP0UJEP3br+bkFaOw6B1Euv+0OOlYTPh0OGN JfKZrI02/hIJ3yv43PmCfexznh1faueYew05E/MsKTSGcaoVV1FSk5fQuzRsQtXTSUiTqG1N9oQS8M3W B6Xr/f5LK3IiIxxRnaSZq3xiIWHbTRufQvLvtadTDd4E1uZafsJPcGtd+pFYmlk5Fzs/tTi4JABxXApf HkNFPp0xNe0dgNIvxjGHZ8mIxnMy09yfrATwgbQeZM XjiXXeRnmYZWATIvDBuvfnK9glB7R/jcpka5co18mgQWSWlL980k+ml3tDmveQ4cbBx/TMkQPsCxlvej 9M0VVwdxwMyc1JKsqIOBxHFD6uuS1jAmD2z1voKWyyf4nQ4+OAG3PTeKLtQ79paJ/Nl0TbgKXrTAwXGt CD0CPn8NzCOtyVRcet05YJAR4C0OYkkwzWqvdriT6c Fye1zSbRoOjvgxGCtaEwEAUfyVNaFlloeB9Vv+N8Qs0UGR5Q+3c3xYNLkch03RW2v1HWXhFAiftegMlJ social services aide/uQTEtQIM1Yls/tjZZtpCCwLaZM7BPm+VWUaTw3nyC6iqVTx1nqjTrrM/mOSK1eJfezZReXxwgZPy [file] Conventional Underwriter+2Iz6Ee2oaU7XzcFZMBa4l7dYn4BXddK9QK5iD8nqPA5y286Tg4I3AWfZWnH9Pi1bhmNuU+NaAlUod [file] CONNER+OUvXn8qlH0yNNqktayTeE3G/yAgMQ2AjiZ7GDCXB2xEd9mFoYAK3uUdgwA7to8ZVe1JsHyEuDAeT 5eqJhImqM/atNwgb7ic8xl80RsbCxubW9WCsmGxM8gDVyvd1oFpKEPpoe7T5jDMUclCfUO/3qov9cgrT bfKShaHMN/cScWfwTaeIRLGSQWDMyQ0wVEjsoOImFA OVDUOcZNF5e4Bp8idmVsAylPWyTEUn6nuBseFWBIEq5ZfiuQix8cX/Yq5SsFgRnT8gEkskgrpoTEY4yF InBVw1p/b096v9YAl5EswUZKUte8Mlp+AlAcy3751Q4rRVL9mnfNyJn8CI5cSQOA44f6U6AcJb3hOlDe noé/lcvqAW69UjfLdZpQX7EEQ7FXZSxlS2WbqcO0cs [file] O7siDtQ0IBs2CgFHoM3xmDnAdGePUy+mnNs8t1+manager helpdesk+ [file] d5oQWKrGc+TsPxXlN1xSG3f+QjjuNcM1OT2XKStpLTLu369PUbIs6SDC29r6TPoPBcysdLYoA1xzs+fur stylist [file] OcEe8fGP7Rr12TFr4w+Jx0H34AS/MILL CONTROLLER/V9aWSMK/wWO+bC7YHkkdxMrfXTxAC7BQE0fy4TmGFvwHYXwYg [file] interventional technologist/GnmHEq/Frn4lQy4q2Z3RS2vVwYypY9qBKqeZpMfkcqpxEwA+CqTEescRhSvtcyyGgPDz44q17XbV p5QkJymEMIZkQsx79GaG/jMSm6oPJUn3IkLgw905TVt7rAKxL5xk+42KMC3L5T16P7H3t1Rxlw2Z3KIM msjeuW5ieqrCbA1jwg6C0g5E7b8mO1DpfqcOqqkpPp [file] 3Dk8kvWnxsGst1WaORDgySir0wUETqBQ2nXb5/xkfnvXRClqGxChM724Q1OOk+Bernabe/svOIEQ9hi0bant 43smuURj1ThD0BxLwjmbdhU/HjjoY+Zp05ONM++KzIBL83jWmRouXzxMg/O8GAPx/wbCHbKD5gL6xv4r psnCOS5vgaJ5al1u9G147XoB68yRbs0CSsUqQeZAHe hnrh3taUl35sRuGDMsXgtUcQdhvf4A4CNiVHaEK1FY5XYn8R5UBiuw9k2r3Ej/1W0xq0G/AzxCg747yY BU03AjGmj170uYy05D5UFQTWNJhD6srsRvnkon11fX+GuO5VlU1R8+X7x0RfBKTN3f91w+R4xe81g89e GvH2kUuMui16csaLfvC6Zy+HoGz8IZrxBE5x5rTu/C yQTfWffZOhPQWInpk/JJ46iuTChkykPTny8CFf06/FMkZrP0mxw+GPuzku/8pcutIkRdw9kJL++BWyIR 2mgdir4zlTed1dG0gRv3COZs29ikzmn4UhzCZl1N9j5RoeRkQUhQA8LIMb9JKUQzfkoLiuyvPFgbVZoK jS+DmnAPXdN29ombFVgbSMzRzkfA25Hh/PMx9sTfDW CoEKt6Mp0x7KCKxK3yT2cTg1j6JJM7aihmA083KhKw14CPG3ysno99d+f0U07Yc5NWu9c/bxHvX4dfAj edBQk5eHdZZREK41K2+xX/HpzfspDJZkZGApKjIXOOLl2Jpe2sqOS065cN3Y02Qkk4ufF4rjpvLmHtbR GxumUe1QcRA9tIfYcp4q5+hRVoOiyMCOmlJso1sJ2V Global Commodity Manager/QqevNcifNpyGe+pl2q/blAMoDCZH7JhKl09kmKfyqcPW9siDMPrOaUiQr7Z1ahMOQgssSe3clTEhV [file] Jose Luis/0mngR6AJ6BrGMX4eK+NhO79z07sE7WPDKj2IxvugS7pgESbEwJLI/fE7UpjkTRpPPlb6eqfDb [file] obusnmDHN/+R971cufr85ezveloI/dR1P1spvewdduvWku7xQQOcecygY8n/hV5YZS9B8aiwiPI2O/Global Commodity Manager [file] QZcMj94BDVmq+fur stylist/jPfVgVodhYPBUd18b5Vt6DHRmo [file] P28Rz47xG0Wu3qAby5jJ4oYcu77y52BCzrgRKyf107 F6eFVMH3/BVufHtdHMOpib2cPKqLgHsUhe7CLytq23Ocz1CYsIvCYkhH04QCOtr6FU4SVmAmSlo+UhGm 3yn78D3/mqzUgRwK5lo17lm6bDpYvYtfQvcadCPIIXCohEwLqIrPV8gT/a77w3TQIt53gRiQWXXMneQT VKMJ0H2739zMDdg+GGHRDVtvPim510X3eICdERN9pL bVA+n+S8IygKLnO/LKvn93Su7I7r/5P32RJXyLgY9EywYlCW84Ulv0F6E1ea+lmVT98iDnVN6iCO0RDu 8C3jjz+F2ZRtBcsFcBPAraAqwEFRKVtjaHUwceA35cpg9ifCz6JYjm/jk+LwBMTh2y8B+sBfqf0Vnvqn v9lCbb7W7yqtdz+OW8qiqzyTIjBkCXnHYhGF3mR8Xl V6WLgXx+vp sales/dMoppieX7KG72SQ0I4xl/jlwAPM88GEMMgNhBPXxl0aJt5SKWrAswTuCbLKltyo3PVTxY [file] 2YaWTGC06bwBqT9rVpn1qU3miW6sMcu/[place]+WH1814qzZX8y5AmzHZTKfX4q9PVfyOnAQk6exq091TT [file] BzDEQ2HwXYQF6E2NawFPMLKiU6FK/A800N1+PB [file] Yan/FYMTkDfVe3r6/MILL CONTROLLER/lWvuKnAlDT90ko2BvaeZSUjoVlIZMHjuddXAJGv25zY46YIrDJipuL8t1D0y [file] aoF4Y5Hxw6ttjqnZGGxk1maLGmtSKNEGMSvFpdE9RUnK90eYwz9Zd0rDF51BrlqM7H3PeGda+GQ+fur stylist/n [file] director power/yjRXNMf/kr0Vxovz97hVW2GQTuiPimX+8JOH+jLkf8MAuCaJxL5s8b+hXnVWoztlOKsQjjyCFdCr [file] 8FPeqkPHVbKLJG5GSG5ge4AtRHXxLWfbvoVbHxzJYOivlRYhxYsfBVKMXuZ1ZpJhSPKSTnCkUR6F ID Date Data Source [id number] 06/28/2021 08:28:00 AM EDT [facility]) Name Value Range Interpretation Code Description Data Susan rce(s) Supporting Document(s) Magnesium [Mass/volume] in Serum or Plasma 1.8 mg/dL 1.6-2.3 [facility] ([facility]) Laboratory test finding (navigational concept) Laboratory test result [facility] ([facility]) ID Date Data Source [id number] 06/28/2021 08:28:00 AM EDT [facility] ([facility]) Name Value Range Interpretation Code Description Data Susan rce(s) Supporting Document(s) Cholesterol [Mass/volume] in Serum or Plasma 83 mg/dL 100-199 [facility]) Triglyceride [Mass/volume] in Serum or Plasma 56 mg/dL 0-149 [facility] ([facility]) Cholesterol in HDL [Mass/volume] in Serum or Plasma 56 mg/dL [facility] ([facility]) Laboratory test finding (navigational concept) 14 mg/dL 5-40 [facility] ([facility]) Laboratory test finding (navigational concept) 13 mg/dL 0-99 [facility] ([facility]) Comment: Laboratory test result [facility] ([facility]) ID Date Data Source [id number] 06/28/2021 08:28:00 AM EDT [facility] ([facility]) Name Value Range Interpretation Code Description Data Susan rce(s) Supporting Document(s) Natriuretic peptide.B prohormone N-Terminal [Mass/volu me] in Serum or Plasma 143 pg/mL 0-301 [facility] ([facility]) <content>The following cut-points have b een suggested for the</content>
<content>use of proBNP for the diagnostic evaluation of heart</content>
<content>failure (HF) in patients with acute dy spnea:</content>
<content>Modality Age Optimal Cut</content>
<content>(years) Point</content>
<content> ---</content>
<content>Diagnosis (rule in HF) <50 450 pg/mL</content>
<content>50 - 75 900 pg/mL</content>
<content>>75 1800 pg/mL</content>
<content> Exclusion (rule out HF) Age independent 300 pg/mL</content>
<content></content> ID Date Data Source [id number] 06/28/2021 08:28:00 AM EDT [facility] ([facility]) Name Value Range Interpretation Code Description Data Susan rce(s) Supporting Document(s) Glucose 122 mg/dL 65-99 [facility] ([facility] [place]) Urea nitrogen [Mass/volume] in Serum or Plasma 37 mg/dL 8-27 [facility] ([facility]) Creatinine 1.06 mg/dL 0.57-1.00 [facility] ([facility]) eGFR If Africn Am 61 mL/min/1.73 [facility] ([facility]) [facility] currently reports eGFR in comp liance with the current recommendations of the National Kidney Foundation. [facility] will update reporting as new guidelines are published from the NKF-ASN Task force. eGFR If NonAfricn Am 53 mL/min/1.73 [facility] ([facility]) Sodium 140 mmol/L 134-144 [facility] ([facility]) Urea nitrogen/Creatinine [Mass Ratio] in Serum or Plasma 35 1 2-28 [facility] ([facility]) Potassium [Moles/volume] in Serum or Plasma 5.3 mmol/L 3.5-5.2 [facility] ([facility]) Carbon dioxide, total [Moles/volume] in Serum or Plasma 24 mmol/L 20 -29 [facility] ([facility]) Chloride [Moles/volume] in Serum or Plasma 104 mmol/L 96-106 [facility] ([facility]) Calcium [Mass/volume] in Serum or Plasma 10.5 mg/dL 8.7-10.3 [facility] ([facility]) Verified by repeat analysis ID Date Data Source [id number] 06/29/2021 08:06:00 AM EDT [facility] Name Value Range Interpretation Code Description Data Susan rce(s) Supporting Document(s) Glucose 122 mg/dL 65-99 Above high normal [facility] BUN 37 mg/dL 8-27 Above high normal [facility] Creatinine 1.06 mg/dL 0.57-1.00 Above high normal [facility] eGFR If NonAfricn Am 53 mL/min/1.73 >59 Below low normal [facility] eGFR If Africn Am 61 mL/min/1.73 >59 [facility] currently reports eGFR in comp liance with the current recommendations of the [employer]. [facility] will update reporting as new guidelines are published from the NKF-ASN Task force. BUN/Creatinine Ratio 35 12-28 Above high normal [facility] Sodium 140 mmol/L 134-144 [facility] Potassium 5.3 mmol/L 3.5-5.2 Above high normal [facility] Chloride 104 mmol/L 96-106 [facility] Carbon Dioxide, Total 24 mmol/L 20-29 [facility] Calcium 10.5 mg/dL 8.7-10.3 Above high normal [facility] Verified by repeat analysis ID Date Data Source [id number] 06/30/2021 06:05:00 AM EDT [facility] Name Value Range Interpretation Code Description Data Susan rce(s) Supporting Document(s) NT-proBNP 143 pg/mL 0-301 [facility] The following cut-points have been suggested for the use of proBNP for the diagnostic evaluation of heart failure (HF) in patients with acute dyspnea: Modality Age Optimal Cut (years) Point Diagnosis (rule in HF) <50 450 pg/mL 50 - 75 900 pg/mL > 75 1800 pg/mL Exclusion (rule out HF) Age independent 300 pg/mL ID Date Data Source [id number] 06/29/2021 08:06:00 AM EDT [facility] Name Value Range Interpretation Code Description Data Susan rce(s) Supporting Document(s) Cholesterol, Total 83 mg/dL 100-199 Below low normal [facility] Triglycerides 56 mg/dL 0-149 [facility] HDL Cholesterol 56 mg/dL >39 [facility] VLDL Cholesterol Bassem 14 mg/dL 5-40 [facility] LDL Chol Calc (NIH) 13 mg/dL 0-99 [facility] ID Date Data Source [id number] 06/29/2021 08:06:00 AM EDT [facility] Name Value Range Interpretation Code Description Data Susan rce(s) Supporting Document(s) Magnesium 1.8 mg/dL 1.6-2.3 [facility] ID Date Data Source [id number] 06/05/2021 01:11:00 PM EDT [facility] ([facility]) Name Value Range Interpretation Code Description Data Susan rce(s) Supporting Document(s) Bacteria identified in Unspecified specimen by Aerobe culture Laboratory test result [facility] ([facility]) ID Date Data Source [id number] 06/05/2021 11:32:00 AM EDT [facility] ([facility]) Name Value Range Interpretation Code Description Data Susan rce(s) Supporting Document(s) Laboratory test finding (navigational concept) Laboratory test result [facility] ([facility]) SRC:Scalp ID Date Data Source [id number] 06/05/2021 11:32:00 AM EDT [facility] ([facility] Nurse [facility]) Name Value Range Interpretation Code Description Data Susan rce(s) Supporting Document(s) Bacteria identified in Unspecified specimen by Anaerob e culture Laboratory test result [facility] ([facility]) SRC:Scalp Bacteria identified in Unspecified specimen by Culture Laborator y test result [facility] ([facility]) SRC:Scalp Bacteria identified in Unspecified specimen by Culture Laborator y test result Abnormal (applies to non-numeric results) [facility] ([facility]) SRC:Scalp Bacteria identified in Unspecified specimen by Aerobe culture Laboratory test result Abnormal (applies to non-numeric results) [facility] ([facility]) SRC:Scalp Other Antibiotic [Susceptibility] Laboratory test result [facility] ([facility]) SRC:Scalp ID Date Data Source [id number] 05/25/2021 12:05:00 AM EDT [facility] Name Value Range Interpretation Code Description Data Susan rce(s) Supporting Document(s) C difficile Toxins A+B, EIA Negative Negative [facility] ID Date Data Source [id number] 05/27/2021 08:05:00 AM EDT [facility] Name Value Range Interpretation Code Description Data Susan rce(s) Supporting Document(s) E coli Shiga Toxin EIA Negative Negative [facility] Salmonella/Shigella Screen Final report [facility] ID Date Data Source [id number] 05/29/2021 12:05:00 AM EDT [facility] Name Value Range Interpretation Code Description Data Susan rce(s) Supporting Document(s) Pancreatic Elastase, Fecal 160 ug Elast./g >200 Below low normal [facility] Severe Pancreatic Insufficiency: <100 Moderate Pancreatic Insufficiency: 100 - 200 Normal: >200 ID Date Data Source [id number] 05/31/2021 12:05:00 AM EDT [facility] Name Value Range Interpretation Code Description Data Susan rce(s) Supporting Document(s) Ova + Parasite Exam Final report [facility] These results were obtained using wet pr eparation(s) and trichromestained smear. This test does not include testing for Cryptosporidiumparvum, Cyclospora, or Microsporidia. ID Date Data Source [id number] 05/27/2021 08:05:00 AM EDT [facility] Name Value Range Interpretation Code Description Data Susan rce(s) Supporting Document(s) Result 1 [facility] No Salmonella or Shigella recovered. ID Date Data Source [id number] 05/31/2021 12:05:00 AM EDT [facility] Name Value Range Interpretation Code Description Data Susan rce(s) Supporting Document(s) Result 1 [facility] No ova, cysts, or parasites seen. One ne gative specimen does not rule out the possibility of aparasitic infection. ID Date Data Source [id number] 05/25/2021 04:06:00 PM EDT [facility] Name Value Range Interpretation Code Description Data Susan rce(s) Supporting Document(s) Calprotectin, Fecal 51 ug/g 0-120 [facility] Concentration Interpretation Follo w-Up<16 - 50 ug/g Normal None>50 -120 ug/g Borderline Re-evaluate in 4-6 weeks >120 ug/g Abnormal Repeat as clinically indicated ID Date Data Source [id number] 05/27/2021 08:05:00 AM EDT [facility] Name Value Range Interpretation Code Description Data Susan rce(s) Supporting Document(s) Result 1 [facility] No Campylobacter species isolated. ID Date Data Source [facility] DIGITAL / BRITNEY BILATERAL MAMMO SCREENING (Ultraso und if indicated) 04/27/2021 12:00:00 AM EDT eCW1 ([facility]) Name Value Range Interpretation Code Description Data Susan rce(s) Supporting Document(s) [facility] DIGITAL / BRITNEY BILAT ERAL MAMMO SCREENING (Ultrasound if indicated) eCW1 ([facility]) ID Date Data Source [id number] 03/20/2021 12:15:00 PM EDT MEDENT ([facility]) Name Value Range Interpretation Code Description Data Susan rce(s) Supporting Document(s) Laboratory test finding (navigational concept) Laboratory test result MEDENT ([facility]) See progress note 03-28-21 ID Date Data Source [id number] 03/20/2021 12:15:00 PM EDT MEDENT ([facility]) Name Value Range Interpretation Code Description Data Susan rce(s) Supporting Document(s) Bacteria identified in Unspecified specimen by Anaerob e culture Laboratory test result MEDENT ([facility]) See progress note 03-28-21 Bacteria identified in Unspecified specimen by Culture Laborator y test result MEDENT ([facility]) See progress note 03-28-21 Bacteria identified in Unspecified specimen by Aerobe culture Laboratory test result MEDENT ([facility]) See progress note 03-28-21 Bacteria identified in Unspecified specimen by Culture Laborator y test result MEDENT ([facility]) See progress note 03-28-21 ID Date Data Source [id number] 02/14/2021 10:37:00 AM EDT MEDENT ([facility]) Name Value Range Interpretation Code Description Data Susan rce(s) Supporting Document(s) Laboratory test finding (navigational concept) Laboratory test result MEDENT ([facility]) Will start with warm compress twice kaitlin y x 1 week to loosen thicker scale then if less will start Efudex cream BID Laboratory test finding (navigational concept) Laboratory test result MEDENT ([facility]) Will start with warm compress twice kaitlin y x 1 week to loosen thicker scale then if less will start Efudex cream BID ID Date Data Source [id number] 02/14/2021 10:34:00 AM EDT MEDENT ([facility]) Name Value Range Interpretation Code Description Data Susan rce(s) Supporting Document(s) Bacterial biochemical profile [Identifier] in Isolate by Culture Laboratory test result MEDENT ([facility]) ID Date Data Source [id number] 01/13/2021 02:34:00 PM EST MEDENT ([facility]) Name Value Range Interpretation Code Description Data Susan rce(s) Supporting Document(s) Hemoglobin A1c/Hemoglobin.total in Blood 6.6 MEDENT ([facility]) ID Date Data Source [id number] 01/13/2021 02:34:00 PM EST MEDENT ([facility]) Name Value Range Interpretation Code Description Data Susan rce(s) Supporting Document(s) Triglycerides 97 MEDENT ([facility]) Cholesterol 105 100-199 MEDENT ([facility]) Cholesterol in LDL [Mass/volume] in Serum or Plasma by calculation Laboratory test result MEDENT ([facility]) HDL 71 40-60 MED[facility] ([facility] Chol/HDL Ratio Laboratory test result MEDENT ([facility]) ID Date Data Source [id number] 01/13/2021 02:34:00 PM EST MEDENT ([facility]) Name Value Range Interpretation Code Description Data Susan rce(s) Supporting Document(s) Albumin [Mass/volume] in Serum or Plasma 4.4 MEDENT ([facility]) Alanine aminotransferase [Enzymatic activity/volume] in Serum or Plasma 108 MEDENT ([facility]) Calcium [Mass/volume] in Serum or Plasma 10.4 MED[facility] ([facility]) Carbon dioxide, total [Moles/volume] in Serum or Plasma 23 MED[facility] ([facility]) Chloride [Moles/volume] in Serum or Plasma 98 MED[facility] ([facility]) Alkaline phosphatase [Enzymatic activity/volume] in Serum or Plasma 1 08 MED[facility] ([facility]) Potassium [Moles/volume] in Serum or Plasma 4.6 MED[facility] ([facility]) Sodium 135 MED[facility] ([facility]) Protein [Mass/volume] in Serum or Plasma 6.5 MED[facility] ([facility]) Aspartate aminotransferase [Enzymatic activity/volume] in Serum or Plasma 19 MED[facility] ([facility]) Glucose 171 70-100 [facility] Urea nitrogen [Mass/volume] in Serum or Plasma 27 MEDENT ([facility]) Creatinine For GFR 1.15 [facility] ([facility]) ID Date Data Source [id number] 01/13/2021 02:34:00 PM EST MEDENT ([facility]) Name Value Range Interpretation Code Description Data Susan rce(s) Supporting Document(s) White Blood Count 8.0 3.4-10.8 MED[facility] ([facility]) Red Blood Count 4.02 3.77-5.28 MED[facility] ([facility]) Platelets 332 150-450 MED[facility] ([facility]) Hemoglobin 11.9 11.1-15.9 MED[facility] ([facility]) Hematocrit 36.3 34.0-46.6 MED[facility] ([facility]) ID Date Data Source [id number] 01/25/2021 03:05:00 PM EDT [facility] Name Value Range Interpretation Code Description Data Susan rce(s) Supporting Document(s) Hemoglobin A1c 6.6 % 4.8-5.6 Above high normal [facility] Prediabetes: 5.7 - 6.4 Diabetes: >6.4 Glycemic control for adults with diabetes: <7.0 ID Date Data Source [id number] 01/25/2021 03:05:00 PM EDT [facility] Name Value Range Interpretation Code Description Data Susan rce(s) Supporting Document(s) Written Authorization [facility] Written Authorization Received.Authoriza tion received from DR.KAREN BARRON [id number] by Ligia Puentes ID Date Data Source [id number] 01/13/2021 01:00:00 PM EST MEDENT ([facility] Name Value Range Interpretation Code Description Data Susan rce(s) Supporting Document(s) Written Authorization Laboratory test result MEDENT ([facility] Written Authorization Received. Authorization received from DR.KAREN BARRON 01-18-2021 Logged by Ligia Puentes Laboratory test finding (navigational concept) Laboratory test result MEDENT ([facility] The [place] Code of Federal Regula tions requires a written and signed request be forwarded to a laboratory following a verbal order of a laboratory test. Please assist us to meet this requirement and to complete our records. Date: ICD-9/10 Diagnosis Code(s): Physician or Authorized Designee: Please Print Physician or Authorized Designee Signature Your Signature Confirms Your Order Of The Test(s) Listed. Please provide requested information and fax to [phone]. ID Date Data Source [id number] 01/13/2021 01:00:00 PM EST MEDENT ([facility] Name Value Range Interpretation Code Description Data Susan rce(s) Supporting Document(s) Hemoglobin A1c/Hemoglobin.total in Blood 6.6 % 4.8-5.6 MED[facility] ([facility] <content>Prediabetes: 5.7 - 6.4</content >
<content>Diabetes: >6.4</content>
<content>Glycemic control for adults with diabetes: <7.0</content>
<content></content> ID Date Data Source [id number] 01/13/2021 01:00:00 PM EST MEDENT ([facility] Name Value Range Interpretation Code Description Data Susan rce(s) Supporting Document(s) Creatinine [Mass/volume] in Urine 62.2 mg/dL MED[facility] ([facility] A courtesy copy of this report has been sent to the patient, Microalbumin [Mass/volume] in Urine Laboratory test result MED[facility] ([facility] A courtesy copy of this report has been sent to the patient, Albumin/Creatinine [Mass Ratio] in Urine Laboratory test result 0-29 [facility] ([facility] A courtesy copy of this report has been sent to the patient, ID Date Data Source [id number] 01/13/2021 01:00:00 PM EST MED[facility] ([facility] Name Value Range Interpretation Code Description Data Susan rce(s) Supporting Document(s) Cholesterol [Mass/volume] in Serum or Plasma 105 mg/dL 100-199 [facility] ([facility] A courtesy copy of this report has been sent to the patient, Triglyceride [Mass/volume] in Serum or Plasma 97 mg/dL 0-149 [facility] ([facility] A courtesy copy of this report has been sent to the patient, Cholesterol in HDL [Mass/volume] in Serum or Plasma 71 mg/dL [facility] ([facility] A courtesy copy of this report has been sent to the patient, Laboratory test finding (navigational concept) 16 mg/dL 0-99 [facility] ([facility] A courtesy copy of this report has been sent to the patient, Laboratory test finding (navigational concept) 18 mg/dL 5-40 [facility] ([facility] A courtesy copy of this report has been sent to the patient, Comment: Laboratory test result MED[facility] ([facility] A courtesy copy of this report has been sent to the patient, ID Date Data Source [id number] 01/13/2021 01:00:00 PM EST MED[facility] ([facility] Name Value Range Interpretation Code Description Data Susan rce(s) Supporting Document(s) Erythrocytes [#/volume] in Blood by Automated count 4.02 x10E6/uL 3.7 7-5.28 [facility] ([facility] A courtesy copy of this report has been sent to the patient, Leukocytes [#/volume] in Blood by Automated count 8.0 x10E3/uL 3.4-10 .8 [facility] ([facility] A courtesy copy of this report has been sent to the patient, Erythrocyte mean corpuscular volume [Entitic volume] by Auto mated count 90 fL 79-97 [facility] ([facility] A courtesy copy of this report has been sent to the patient, Hematocrit [Volume Fraction] of Blood by Automated count 36.3 % 3 4.0-46.6 [facility] ([facility] A courtesy copy of this report has been sent to the patient, Hemoglobin [Mass/volume] in Blood 11.9 g/dL 11.1-15.9 [facility] ([facility] A courtesy copy of this report has been sent to the patient, Erythrocyte mean corpuscular hemoglobin concentration [Mass/volume] by Automated count 32.8 g/dL 31.5-35.7 [facility] ([facility] A courtesy copy of this report has been sent to the patient, Erythrocyte mean corpuscular hemoglobin [Entitic mass] by Automated count 29.6 pg 26.6-33.0 [facility] ([facility] A courtesy copy of this report has been sent to the patient, Erythrocyte distribution width [Ratio] by Automated count 12.4 % 11.7-15.4 [facility] ([facility] A courtesy copy of this report has been sent to the patient, Neutrophils 75 % [facility] ([facility] A courtesy copy of this report has been sent to the patient, Lymphocytes/100 leukocytes in Blood by Automated count 14 % [facility] ([facility] A courtesy copy of this report has been sent to the patient, Platelets [#/volume] in Blood by Automated count 332 x10E3/uL 150-450 [facility] ([facility] A courtesy copy of this report has been sent to the patient, Monocytes/100 leukocytes in Blood by Automated count 7 % [facility] ([facility] A courtesy copy of this report has been sent to the patient, Basophils/100 leukocytes in Blood by Automated count 1 % [facility] ([facility] A courtesy copy of this report has been sent to the patient, Eosinophils/100 leukocytes in Blood by Automated count 2 % [facility] ([facility] A courtesy copy of this report has been sent to the patient, Immature cells [#/volume] in Blood Laboratory test result [facility] ([facility] A courtesy copy of this report has been sent to the patient, Lymphocytes [#/volume] in Blood 1.1 x10E3/uL 0.7-3.1 [facility] ([facility] A courtesy copy of this report has been sent to the patient, Neutrophils [#/volume] in Blood by Automated count 6.1 x10E3/uL 1.4-7 .0 [facility] ([facility] A courtesy copy of this report has been sent to the patient, Monocytes [#/volume] in Blood 0.5 x10E3/uL 0.1-0.9 [facility] ([facility] A courtesy copy of this report has been sent to the patient, Eosinophils [#/volume] in Blood by Automated count 0.1 x10E3/uL 0.0-0 .4 [facility] ([facility] A courtesy copy of this report has been sent to the patient, Immature granulocytes [#/volume] in Blood by Automated count 0.1 x10E3/uL 0.0-0.1 [facility] ([facility] A courtesy copy of this report has been sent to the patient, Basophils [#/volume] in Blood by Automated count 0.0 x10E3/uL 0.0-0.2 [facility] ([facility] A courtesy copy of this report has been sent to the patient, Immature granulocytes/100 leukocytes in Blood by Automated count 1 % [facility] ([facility] A courtesy copy of this report has been sent to the patient, Morphology [Interpretation] in Blood Narrative Laboratory test result [facility] ([facility] A courtesy copy of this report has been sent to the patient, Nucleated erythrocytes/100 leukocytes [Ratio] in Blood by Automated count Laboratory test result [facility] ([facility] A courtesy copy of this report has been sent to the patient, ID Date Data Source [id number] 01/13/2021 01:00:00 PM EST [facility] ([facility] Name Value Range Interpretation Code Description Data Susan rce(s) Supporting Document(s) Glucose [Mass/volume] in Serum or Plasma 171 mg/dL 65-99 [facility] ([facility] A courtesy copy of this report has been sent to the patient, Urea nitrogen [Mass/volume] in Serum or Plasma 31 mg/dL 8-27 [facility] ([facility] A courtesy copy of this report has been sent to the patient, Albumin [Mass/volume] in Serum or Plasma 4.4 g/dL 3.8-4.8 [facility] ([facility] A courtesy copy of this report has been sent to the patient, Creatinine [Mass/volume] in Serum or Plasma 1.15 mg/dL 0.57-1.00 [facility] ([facility] A courtesy copy of this report has been sent to the patient, eGFR If NonAfricn Am 48 mL/min/1.73 [facility] ([facility] A courtesy copy of this report has been sent to the patient, Sodium [Moles/volume] in Serum or Plasma 135 mmol/L 134-144 [facility] ([facility] A courtesy copy of this report has been sent to the patient, Urea nitrogen/Creatinine [Mass Ratio] in Serum or Plasma 27 1 2-28 [facility] ([facility] A courtesy copy of this report has been sent to the patient, eGFR If Africn Am 56 mL/min/1.73 [facility] ([facility] A courtesy copy of this report has been sent to the patient, Potassium [Moles/volume] in Serum or Plasma 4.6 mmol/L 3.5-5.2 [facility] ([facility] A courtesy copy of this report has been sent to the patient, Chloride [Moles/volume] in Serum or Plasma 98 mmol/L 96-106 [facility] ([facility] A courtesy copy of this report has been sent to the patient, Protein, Total 6.5 g/dL 6.0-8.5 [facility] ([facility] A courtesy copy of this report has been sent to the patient, Carbon dioxide, total [Moles/volume] in Serum or Plasma 23 mmol/L 20 -29 [facility] ([facility] A courtesy copy of this report has been sent to the patient, Calcium [Mass/volume] in Serum or Plasma 10.4 mg/dL 8.7-10.3 [facility] ([facility] A courtesy copy of this report has been sent to the patient, Globulin [Mass/volume] in Serum by calculation 2.1 g/dL 1.5-4.5 [facility] ([facility] A courtesy copy of this report has been sent to the patient, Albumin/Globulin [Mass Ratio] in Serum or Plasma 2.1 1.2-2.2 [facility] ([facility] A courtesy copy of this report has been sent to the patient, Bilirubin.total [Mass/volume] in Serum or Plasma 0.3 mg/dL 0.0-1.2 [facility] ([facility] A courtesy copy of this report has been sent to the patient, Aspartate aminotransferase [Enzymatic activity/volume] in Serum or Plasma 19 IU/L 0-40 [facility] ([facility] A courtesy copy of this report has been sent to the patient, Alkaline phosphatase [Enzymatic activity/volume] in Serum or Plasma 108 IU/L 39-117 [facility] ([facility] A courtesy copy of this report has been sent to the patient, Alanine aminotransferase [Enzymatic activity/volume] in Seru m or Plasma 19 IU/L 0-32 [facility] ([facility] A courtesy copy of this report has been sent to the patient, ID Date Data Source [id number] 01/14/2021 05:05:00 AM EST [facility] Name Value Range Interpretation Code Description Data Susan rce(s) Supporting Document(s) WBC 8.0 x10E3/uL 3.4-10.8 [facility] RBC 4.02 x10E6/uL 3.77-5.28 [facility] Hemoglobin 11.9 g/dL 11.1-15.9 [facility] Hematocrit 36.3 % 34.0-46.6 [facility] MCV 90 fL 79-97 [facility] MCH 29.6 pg 26.6-33.0 [facility] MCHC 32.8 g/dL 31.5-35.7 [facility] RDW 12.4 % 11.7-15.4 [facility] Platelets 332 x10E3/uL 150-450 [facility] Neutrophils 75 % Not Estab. [facility] Lymphs 14 % Not Estab. [facility] Monocytes 7 % Not Estab. [facility] Eos 2 % Not Estab. [facility] Basos 1 % Not Estab. [facility] Neutrophils (Absolute) 6.1 x10E3/uL 1.4-7.0 [facility] Lymphs (Absolute) 1.1 x10E3/uL 0.7-3.1 [facility] Monocytes(Absolute) 0.5 x10E3/uL 0.1-0.9 [facility] Eos (Absolute) 0.1 x10E3/uL 0.0-0.4 [facility] Baso (Absolute) 0.0 x10E3/uL 0.0-0.2 [facility] Immature Granulocytes 1 % Not Estab. [facility] Immature Grans (Abs) 0.1 x10E3/uL 0.0-0.1 [facility] ID Date Data Source [id number] 01/14/2021 04:06:00 PM EST [facility] Name Value Range Interpretation Code Description Data Susan rce(s) Supporting Document(s) Creatinine, Urine 62.2 mg/dL Not Estab. [facility] Albumin, Urine Not Estab. [facility] Alb/Creat Ratio 0-29 [facility] No rmal: 0 - 29 Moderately increased: 30 - 300 Severely increased: >300 ID Date Data Source [id number] 01/14/2021 05:05:00 AM EST [facility] Name Value Range Interpretation Code Description Data Susan rce(s) Supporting Document(s) Glucose 171 mg/dL 65-99 Above high normal [facility] BUN 31 mg/dL 8-27 Above high normal [facility] Creatinine 1.15 mg/dL 0.57-1.00 Above high normal [facility] eGFR If NonAfricn Am 48 mL/min/1.73 >59 Below low normal [facility] eGFR If Africn Am 56 mL/min/1.73 >59 Below low normal [facility] BUN/Creatinine Ratio 27 12-28 [facility] Sodium 135 mmol/L 134-144 [facility] Potassium 4.6 mmol/L 3.5-5.2 [facility] Chloride 98 mmol/L 96-106 [facility] Carbon Dioxide, Total 23 mmol/L 20-29 [facility] Calcium 10.4 mg/dL 8.7-10.3 Above high normal [facility] Verified by repeat analysis Protein, Total 6.5 g/dL 6.0-8.5 [facility] Albumin 4.4 g/dL 3.8-4.8 [facility] Globulin, Total 2.1 g/dL 1.5-4.5 [facility] A/G Ratio 2.1 1.2-2.2 [facility] Bilirubin, Total 0.3 mg/dL 0.0-1.2 [facility] Alkaline Phosphatase 108 IU/L 39-117 [facility] AST (SGOT) 19 IU/L 0-40 [facility] ALT (SGPT) 19 IU/L 0-32 [facility] ID Date Data Source [id number] 01/14/2021 05:05:00 AM EST [facility] Name Value Range Interpretation Code Description Data Susan rce(s) Supporting Document(s) Cholesterol, Total 105 mg/dL 100-199 [facility] Triglycerides 97 mg/dL 0-149 [facility] HDL Cholesterol 71 mg/dL >39 [facility] VLDL Cholesterol Bassem 18 mg/dL 5-40 [facility] LDL Chol Calc (NIH) 16 mg/dL 0-99 [facility] Procedure Social History Code Duration Value Status Description Data Source(s ) Smoking 07/13/2021 12:00:00 AM EDT Patient is a former smoker completed Patient is a former smoker [facility] ([facility]) Smoking 06/16/2021 12:00:00 AM EDT Patient is a former smoker completed Patient is a former smoker [facility] ([facility]) Smoking 01/24/2021 12:00:00 AM EDT Patient is a former smoker completed Patient is a former smoker [facility] ([facility] Vital Signs ID Date Data Source [id number] Name Value Range Interpretation Code Description Data Source(s) Respiratory rate 16 /min 16 /min [facility] ( [facility] Body height 63.5 [in_i] 63.5 [in_i] [facility] ([facility] 5'3.50" Body weight 124.25 [lb_av] 124.25 [lb_av] MEDEN T ([facility] Oxygen saturation in Arterial blood by Pulse oximetry 98 % 98 % [facility] ([facility] Systolic blood pressure 131 mm[Hg] 131 mm[Hg] M EDENT ([facility] Diastolic blood pressure 54 mm[Hg] 54 mm[Hg] [facility] ([facility] Heart rate 59 /min 59 /min [facility] ([facility] Body temperature 97.3 [degF] 97.3 [degF] [facility] ([facility] [place] body weight 115 [lb_av] 115 [lb_av] MEDEN T ([facility] Body mass index (BMI) [Ratio] 21.7 kg/m2 21.7 k g/m2 [facility] ([facility] Intraocular pressure Right eye 13 mm[Hg] 13 mm [Hg] [facility] ([facility]) Ap Intraocular pressure Left eye 14 mm[Hg] 14 mm[ Hg] [facility] ([facility]) Ap Systolic blood pressure 116 mm[Hg] 116 mm[Hg] M EDENT ([facility]) Diastolic blood pressure 72 mm[Hg] 72 mm[Hg] [facility] ([facility]) Body weight 131.00 [lb_av] 131.00 [lb_av] MEDEN T ([facility]) Body height 63 [in_i] 63 [in_i] MED[facility] ([facility]) 5'3" Body mass index (BMI) [Ratio] 23.2 kg/m2 23.2 k g/m2 [facility] ([facility]) Body weight 125.00 [lb_av] 125.00 [lb_av] MEDEN T ([facility]) Body height 64 [in_i] 64 [in_i] [facility] ([facility]) 5'4" Body mass index (BMI) [Ratio] 21.5 kg/m2 21.5 k g/m2 [facility] ([facility]) Systolic blood pressure--sitting 102 mm[Hg] 102 mm[Hg] [facility] ([facility]) Ra, medium cuff Diastolic blood pressure--sitting 58 mm[Hg] 58 mm[Hg] [facility] ([facility]) Ra, medium cuff Body weight 131.00 [lb_av] 131.00 [lb_av] MEDEN T ([facility]) Body mass index (BMI) [Ratio] 23.2 kg/m2 23.2 k g/m2 [facility] ([facility]) Systolic blood pressure 130 mm[Hg] 130 mm[Hg] EDENT ([facility]) Diastolic blood pressure 60 mm[Hg] 60 mm[Hg] MED[facility] ([facility]) Body height 63 [in_i] 63 [in_i] MED[facility] ([facility]) 5'3" Systolic blood pressure 122 mm[Hg] 122 mm[Hg] M EDENT ([facility]) Diastolic blood pressure 82 mm[Hg] 82 mm[Hg] MED[facility] ([facility]) Body weight 136.00 [lb_av] 136.00 [lb_av] MEDEN T ([facility]) Respiratory rate 18 /min 18 /min MED[facility] ( [facility]) Body weight 142.6 [lb_av] 142.6 [lb_av] eCW1 ([facility]) Body height 64 [in_i] 64 [in_i] W1 ([facility] Body mass index (BMI) [Ratio] 24.47 kg/m2 24.47 kg/m2 eCW1 ([facility]) Systolic blood pressure 136 mm[Hg] 136 mm[Hg] e CW1 ([facility]) Diastolic blood pressure 64 mm[Hg] 64 mm[Hg] eCW1 ([facility]) Systolic blood pressure 136 mm[Hg] 136 mm[Hg] M EDENT ([facility]) Diastolic blood pressure 74 mm[Hg] 74 mm[Hg] MED[facility] ([facility]) Body weight 140.00 [lb_av] 140.00 [lb_av] MEDEN T ([facility]) Respiratory rate 18 /min 18 /min MEDENT ( [facility]) Intraocular pressure Left eye 15 mm[Hg] 15 mm[ Hg] MEDENT ([facility]) Ap 12:42 PM Intraocular pressure Right eye 14 mm[Hg] 14 mm [Hg] MEDENT ([facility]) Ap 12:42 PM Systolic blood pressure 146 mm[Hg] 146 mm[Hg] M EDCLARKE ([facility] Diastolic blood pressure 56 mm[Hg] 56 mm[Hg] MEDENT ([facility] Systolic blood pressure 129 mm[Hg] 129 mm[Hg] M CESARIO ([facility] recheck Diastolic blood pressure 67 mm[Hg] 67 mm[Hg] LOTUS ([facility] recheck Heart rate 66 /min 66 /min MEDCLARKE ([facility] Body temperature 97.1 [degF] 97.1 [degF] MEDENT ([facility] Respiratory rate 16 /min 16 /min MEDENT ( [facility] Body height 63.5 [in_i] 63.5 [in_i] MEDENT ([facility] 5'3.50" Body weight 145.12 [lb_av] 145.12 [lb_av] MEDEN T ([facility] Oxygen saturation in Arterial blood by Pulse oximetry 98 % 98 % MEDENT ([facility] [place] body weight 115 [lb_av] 115 [lb_av] MEDEN T ([facility] Body mass index (BMI) [Ratio] 25.3 kg/m2 25.3 k g/m2 MEDENT ([facility] Intraocular pressure Right eye 15 mm[Hg] 15 mm [Hg] MEDENT ([facility]) Ap Intraocular pressure Left eye 17 mm[Hg] 17 mm[ Hg] MEDENT ([facility]) Ap Systolic blood pressure 136 mm[Hg] 136 mm[Hg] M EDENT ([facility], [facility]) Diastolic blood pressure 87 mm[Hg] 87 mm[Hg] MEDENT ([facility], [facility]) Heart rate 67 /min 67 /min MEDENT ([facility], [facility]) Respiratory rate 16 /min 16 /min MEDENT ( [facility], [facility]) Oxygen saturation in Arterial blood by Pulse oximetry 98 % 98 % MEDENT ([facility], [facility]) Body temperature 98.4 [degF] 98.4 [degF] MEDENT ([facility], [facility]) Body weight 145.00 [lb_av] 145.00 [lb_av] MEDEN T ([facility], [facility]) Body height 64 [in_i] 64 [in_i] MEDENT ([facility]) 5'4" Body mass index (BMI) [Ratio] 24.9 kg/m2 24.9 k g/m2 MEDENT ([facility]) Systolic blood pressure 170 mm[Hg] 170 mm[Hg] M EDENT ([facility] Diastolic blood pressure 83 mm[Hg] 83 mm[Hg] MEDENT ([facility] Systolic blood pressure 159 mm[Hg] 159 mm[Hg] M EDENT ([facility] Diastolic blood pressure 72 mm[Hg] 72 mm[Hg] MEDENT ([facility] Heart rate 65 /min 65 /min MEDENT ([facility] Body temperature 96.8 [degF] 96.8 [degF] MEDENT ([facility] Respiratory rate 16 /min 16 /min MEDENT ( [facility] Body height 63.5 [in_i] 63.5 [in_i] MEDENT ([facility] 5'3.50" Body weight 146.38 [lb_av] 146.38 [lb_av] MEDEN T ([facility] Oxygen saturation in Arterial blood by Pulse oximetry 97 % 97 % MEDENT ([facility] [place] body weight 115 [lb_av] 115 [lb_av] MEDEN T ([facility] Body mass index (BMI) [Ratio] 25.5 kg/m2 25.5 k g/m2 MEDENT ([facility] Diastolic blood pressure 75 mm[Hg] 75 mm[Hg] MEDENT ([facility]) Heart rate 78 /min 78 /min MEDENT ([facility], [facility]) Respiratory rate 16 /min 16 /min MEDENT ( [facility]) Systolic blood pressure 145 mm[Hg] 145 mm[Hg] M EDENT ([facility]) Oxygen saturation in Arterial blood by Pulse oximetry 99 % 99 % MEDENT ([facility]) Body temperature 98.7 [degF] 98.7 [degF] MEDENT ([facility]) Body weight 145.00 [lb_av] 145.00 [lb_av] MEDEN T ([facility]) Body height 64 [in_i] 64 [in_i] MEDENT ([facility]) 5'4" Body mass index (BMI) [Ratio] 24.9 kg/m2 24.9 k g/m2 MEDENT ([facility]) Diastolic blood pressure 61 mm[Hg] 61 mm[Hg] MEDENT ([facility] Heart rate 65 /min 65 /min MEDENT ([facility] Body temperature 98.5 [degF] 98.5 [degF] MEDENT ([facility] Respiratory rate 18 /min 18 /min MEDENT ( [facility] Systolic blood pressure 164 mm[Hg] 164 mm[Hg] [facility] Diastolic blood pressure 71 mm[Hg] 71 mm[Hg] MEDENT ([facility] Systolic blood pressure 138 mm[Hg] 138 mm[Hg] [facility] Body height 63.5 [in_i] 63.5 [in_i] MEDENT ([facility] 5'3.50" Body weight 145.50 [lb_av] 145.50 [lb_av] MEDEN T ([facility] Oxygen saturation in Arterial blood by Pulse oximetry 98 % 98 % MEDENT ([facility] [place] body weight 115 [lb_av] 115 [lb_av] KAILA Lim ([facility] Body mass index (BMI) [Ratio] 25.4 kg/m2 25.4 k g/m2 LOTUS ([facility]
--- NOTE | 2021-08-25 13:08 | REP ---
INDICATION: CHEST PAIN. COMPARISON: 05/27/2019 TECHNIQUE: Portable FINDINGS: The technique utilized in obtaining the radiograph has magnified the cardiac silhouette and accentuated the interstitial markings. There are chronic right lung base changes status quo. No acute patchy parenchymal opacities or pleural effusions have developed. The cardiomediastinal silhouette is unchanged. The heart is not enlarged. There is no change in the osseous structures. IMPRESSION: There is no acute cardiopulmonary disease. <Electronically signed by Tu Milton > 08/25/21 [id number]
--- OUTSIDE RECORDS SUMMARY | 2021-08-25 13:24 | CCD ---
Author Author [facility] Organization [facility] Address Unknown Phone Unavailable Care Team Providers Care Consulting Project Director Name Role Phone Trotter Danielle CARD PAINTER Unavailable Unavailable Trotter, Danielle CARD PAINTER Unavailable Unavailable Trotter, Danielle CARD PAINTER Unavailable Unavailable Trotter, Danielle CARD PAINTER Unavailable Unavailable Trotter, Danielle CARD PAINTER Unavailable Unavailable Trotter, Danielle CARD PAINTER Unavailable Unavailable Trotter, Danielle CARD PAINTER Unavailable Unavailable Trotter, Danielle CARD PAINTER Unavailable Unavailable Trotter, Danielle CARD PAINTER Unavailable Unavailable Trotter, Danielle CARD PAINTER Unavailable Unavailable Trotter, Danielle CARD PAINTER Unavailable Unavailable Trotter, Danielle CARD PAINTER Unavailable Unavailable Trotter, Danielle CARD PAINTER Unavailable Unavailable Petrancosta, Upshur Yenifer PA-C Unavailable Unavailabl e Petrancosta, Upshur Yenifer PA-C Unavailable Unavailabl e Petrancosta, Upshur Yenifer PA-C Unavailable Unavailabl e Petrancosta, Upshur Yenifer PA-C Unavailable Unavailabl e Petrancosta, Upshur Yenifer PA-C Unavailable Unavailabl e Petrancosta, Upshur Yenifer PA-C Unavailable Unavailabl e Petrancosta, Upshur Yenifer PA-C Unavailable Unavailabl e Petrancosta, Upshur Yenifer PA-C Unavailable Unavailabl e Petrancosta, Upshur Yenifer PA-C Unavailable Unavailabl e Petrancosta, Upshur Yenifer PA-C Unavailable Unavailabl e Petrancosta, Upshur Yenifer PA-C Unavailable Unavailabl e Petrancosta, Upshur Yenifer PA-C Unavailable Unavailabl e Petrancosta, Upshur Yenifer PA-C Unavailable Unavailabl e Petrancosta, Upshur Yenifer PA-C Unavailable Unavailabl e Petrancosta, Upshur Yenifer PA-C Unavailable Unavailabl e Petrancosta, Upshur Yenifer PA-C Unavailable Unavailabl e Petrancosta, Upshur Yenifer PA-C Unavailable Unavailabl e Petrancosta, Upshur Yenifer PA-C Unavailable Unavailabl e Petrancosta, Upshur Yenifer PA-C Unavailable Unavailabl e Petrancosta, Upshur Yenifer PA-C Unavailable Unavailabl e Petrancosta, Upshur Yenifer PA-C Unavailable Unavailabl e Petrancosta, Upshur Yenifer PA-C Unavailable Unavailabl e Petrancosta, Upshur Yenifer PA-C Unavailable Unavailabl e Petrancosta, Upshur Yenifer PA-C Unavailable Unavailabl e Petrancosta, Upshur Yenifer PA-C Unavailable Unavailabl e SARAVANAN (CLEMENCIA), [...] E TYSON BISWAS Unavailable Unavailable LAZO E TYSNO BISWAS Unavailable Unavailable LAZO, E TYSON BISWAS [...] Unavailable Jason, Layton Mckoy MD Unavailable Unavailable Jasno, Layton Mckoy MD Unavailable Unavailable Jason, Layton Mckoy MD Unavailable Unavailable Atchison, Suellen ADVERTISING LAYOUT WORKER Unavailable Unavailable Atchison, Suellen ADVERTISING LAYOUT WORKER Unavailable Unavailable Atchison, Suellen ADVERTISING LAYOUT WORKER Unavailable Unavailable Atchison, Suellen ADVERTISING LAYOUT WORKER Unavailable Unavailable Atchison, Suellen ADVERTISING LAYOUT WORKER Unavailable Unavailable Atchison, Suellen ADVERTISING LAYOUT WORKER Unavailable Unavailable Atchison, Suellen ADVERTISING LAYOUT WORKER Unavailable Unavailable Atchison, Suellen ADVERTISING LAYOUT WORKER Unavailable Unavailable Atchison, Suellen ADVERTISING LAYOUT WORKER Unavailable Unavailable Atchison, Suellen ADVERTISING LAYOUT WORKER Unavailable Unavailable Atchison, Suellen ADVERTISING LAYOUT WORKER Unavailable Unavailable Atchison, Suellen ADVERTISING LAYOUT WORKER Unavailable Unavailable Atchison, Suellen ADVERTISING LAYOUT WORKER Unavailable Unavailable [place]ch[place], Suellen ADVERTISING LAYOUT WORKER Unavailable Unavailable Atchison, Suellen ADVERTISING LAYOUT WORKER Unavailable Unavailable Atchison, Suellen ADVERTISING LAYOUT WORKER Unavailable Unavailable [place]chison, Suellen ADVERTISING LAYOUT WORKER Unavailable Unavailable Atchison, Suellen ADVERTISING LAYOUT WORKER Unavailable Unavailable Atchison, Suellen ADVERTISING LAYOUT WORKER Unavailable Unavailable Atchison, Suellen ADVERTISING LAYOUT WORKER Unavailable Unavailable Atchison, Suellen ADVERTISING LAYOUT WORKER Unavailable Unavailable Atchison, Suellen ADVERTISING LAYOUT WORKER Unavailable Unavailable Atchison, Suellen ADVERTISING LAYOUT WORKER Unavailable Unavailable Atchison, Suellen ADVERTISING LAYOUT WORKER Unavailable Unavailable Atchison, Suellen ADVERTISING LAYOUT WORKER Unavailable Unavailable Atchison, Suellen ADVERTISING LAYOUT WORKER Unavailable Unavailable Atchison, Suellen ADVERTISING LAYOUT WORKER Unavailable Unavailable [place]ch[place], Suellen ADVERTISING LAYOUT WORKER Unavailable Unavailable Atchison, Suellen ADVERTISING LAYOUT WORKER Unavailable Unavailable Atchison, Suellen ADVERTISING LAYOUT WORKER Unavailable Unavailable Atchison, Suellen ADVERTISING LAYOUT WORKER Unavailable Unavailable Atchison, Suellen ADVERTISING LAYOUT WORKER Unavailable Unavailable Atchison, Suellen ADVERTISING LAYOUT WORKER Unavailable Unavailable Atchison, Suellen ADVERTISING LAYOUT WORKER Unavailable Unavailable Atchison, Suellen ADVERTISING LAYOUT WORKER Unavailable Unavailable [place]ch[place], Kierra Paige ADVERTISING LAYOUT WORKER Unavailable Unavailable OVI, L LUCAS PA Unavailable [...] L LUCAS PA Unavailable Unavailable OVI, L LUCSA PA Unavailable Unavailable OVI, L LUCAS PA [...] Unavailable Unavailable VIANNEY, STEW PA Unavailable Unavailable VIANNYE, STEW PA Unavailable Unavailable VIANNEY, STEW PA [...] is protected by Article 27-F of the [facility] Public Health law. If you continue you may have access to information: Regarding HIV / AIDS; Provided by facilities licensed or operated by the [facility] Office of Mental Health; or Provided by the [facility] Office for People With Developmental Disabilities. If such information is present, then the following [facility] mandated warning applies: This information has [...] law may result in a fine or care home sentence or both. A general authorization for the release of medical or other information is NOT sufficient authorization for further disc losure. Family History Family Member Name Family Member Gender Family Member Status Date o f Status Description Data Source(s) Unknown Unknown Problem [facility] ([facility] Unknown Male Problem [facility] ([facility]) deceaed Encounters Encounter Providers Location Date Indications Data Source(s ) Outpatient Attender: AMANDA PRATT [facility] Office 07/17/2021 03:15:00 PM EDT [facility] ([facility] Attender: MICHELLE MCKOY) MDReferrer: Christiane LAZO MD 07/07/2021 08:21:09 PM EDT [facility] Outpatient Attender: Grecia Foreman [facility] Main Office 06/26/2021 09:30:00 AM EDT [facility] Outpatient Attender: LUCAS HONG Main Office 06/16/2021 0 1:00:00 PM EDT MED[facility] ([facility]) Outpatient Attender: Grecia Foreman [facility] Main Office 06/15/2021 09:15:00 AM EDT [facility] ([facility]) Outpatient Attender: Grecia Foreman [facility] Main Office 06/05/2021 11:00:00 AM EDT MED[facility] ([facility]) ( GYNANN) [facility] Yearly ECONOMIC CONSULTANT Exam [address] [place] [address] 04/27/2021 12:00:00 AM EDT eCW1 ([facility]) Outpatient Attender: Grecia Foreman [facility] Main Office 04/05/2021 12:15:00 PM EDT MED[facility] ([facility]) Outpatient Attender: Grecia Foreman [facility] Main Office 03/28/2021 09:30:00 AM EDT MED[facility] ([facility]) Outpatient Attender: Grecia Foreman [facility] Main Office 03/20/2021 11:45:00 AM EDT [facility] ([facility]) Outpatient Attender: Grecia Foreman [facility] Main Office 03/09/2021 12:30:00 PM EDT MED[facility] ([facility]) Outpatient Attender: Grecia Lintonien [facility] Main Office 02/14/2021 10:15:00 AM EDT MED[facility] ([facility]) Outpatient Attender: Leelee Barron MD Main Office 01/24/2021 10:15:0 0 AM EDT [facility] ([facility] Outpatient Attender: AMANDA PRATT [facility] Office 01/05/2021 01:30:00 PM EST [facility] ([facility] ) Outpatient Attender: Danielle Cortes kierra 12/27/2020 07:30:00 AM EST [facility] ([facility]) Outpatient Attender: Yenifer Montes PA-C Main Office 12/15/2020 12:45:00 PM EST [facility] ([facility] Outpatient Attender: STEW Ramirez [place] 11/07/2020 08:15:00 AM EST [facility] ([facility]) Outpatient Attender: Leelee Barron MD Main Office 07/27/2020 11:30:0 0 AM EDT [facility] ([facility] Immunizations Vaccine Date Status Description Data Source(s) New in 2012. IIV4 08/09/2021 10:45:00 AM EDT completed [facility] ([facility] COVID-19 VACCINE Moderna 01/13/2021 12:00:00 AM EST completed [facility] Vaccine Series Complete: YESThis Data wa s Submitted to [facility] Via [employer]. Moderna Sars-(Covid-19) vaccine, mRNA, LNP-S, PF, 100 mcg/ 0.5 mL 01/12/2021 11:00:00 PM EST completed [facility] ([facility] COVID-19 VACCINE Moderna 12/16/2020 12:00:00 AM EST completed [facility] Vaccine Series Complete: NOThis Data was Submitted to [facility] Via [employer]. Moderna Sars-(Covid-19) vaccine, mRNA, LNP-S, PF, 100 [...] EDT ORAL active MEDENT ([facility]) Cephalexin 500 MG Oral Tablet Cephalexin 06/15/2021 [...] 0 AM EDT ORAL completed MEDENT ([facility]) Fluorouracil 50 MG/ML Topical Cream [Efudex] Efudex 12:00:00 AM EDT active MEDENT ( [facility]) 5 % 02/27/2021 [...] 12/27/2020 12:00:00 AM EST ORAL active MEDENT ([facility]) 875 mg 12/27/2020 12:00:00 AM EST [...] BY MOUTH TWICE A DAY SOLD: 12/27/2020 [facility] 500 mg 11/01/2020 12:00:00 AM EST [...] BY MOUTH TWICE A DAY SOLD: 10/03/2020 [facility] carvedilol 25 MG Oral Tablet [...] type / Coverage type Policy ID Covered republican ID Covered republican's relationship to sanford Policy [facility] Plan Information [facility] [id number] SP [id number] MEDICARE [id number] A Medicare Part B [facility] [id number] 0 [id number] [facility] [id number] SP [id number] Umr Care Management [id number] Umr Care Management [id number] ANSI-Commercial [id number] [facility] [id number] r [facility] Part B [id number] Self [id number] Medicare [place] Primary [id number] Self [id number] ANSI-Commercial [id number] ANSI-Medicare Part B [id number] ANSI-Medicare Part B [id number] ANSI-Commercial [id number] ANSI-Commercial [id number] ANSI-Medicare Part B [id number] r [facility] [id number] Self [id number] Medicare [place] Medicare Primary [id number] Self [id number] r [facility] [id number] Self [id number] Medicare [place] Medicare Primary [id number] Self [id number] R [facility] [id number] SP [id number] [facility] Ppo Medigap Part B [id number] 2.16.840.1.017291.3.227. 99.572.85713.0 Self [id number] Umr Medigap Part B [id number] 2.16.840.1.815263.3.227.99.572.3259 4.0 Self [id number] Medicare (Part B) Medicare Primary [id number] 2.16.840.1.924470.3.227.99.572.45137.0 Self 1 [id number] [facility] Ppo Medigap Part B [id number] 2.16.840.1.268891.3.227. 99.572.24124.0 Self [id number] Umr Medigap Part B [id number] 2.16.840.1.554503.3.227.99.572.3259 4.0 Self [id number] Medicare (Part B) Medicare Primary [id number] 2.16.840.1.027351.3.227.99.572.79056.0 Self 1 [id number] Umr Medigap Part B [id number] 2.16.840.1.456306.3.227.99.2809.140 3.0 Self [id number] Medicare [place] Medicare Primary [id number] 2.16.840.1.812187.3.227.99.2809.1403.0 Self [id number] [facility] [id number] SP [id number] MEDICARE [id number] SP [id number] A Medicare [place] Medicare Primary [id number] 2.16.840.1.666825.3.227.99.2809.1403.0 Self 1 [id number] [employer] Medigap Part B [id number] 2.16.840.1.097541.3.227.99.2809.140 3.0 Self [id number] Medicare [place] Medicare Primary [id number] 2.16.840.1.030203.3.227.99.2809.1403.0 Self 1 [id number] Medicare [place] Medicare Primary [id number] 2.16.840.1.972319.3.227.99.2809.1403.0 Self 1 [id number] Medicare [place] Medicare Primary [id number] 2.16.840.1.589848.3.227.99.2809.1403.0 Self 1 [id number] Medicare [place] Medicare Primary [id number] 2.16.840.1.941081.3.227.99.2809.1403.0 Self 1 [id number] MEDICARE C [id number] S [id number] A [employer] PPO O [id number] S [id number] Medicare [place] Medicare Primary [id number] 2.16.840.1.157341.3.227.99.2809.1403.0 Self 1 [id number] [facility] Ppo Medigap Part B [id number] 2.16840.1.535858.3.227. 99.572.70017.0 Self [id number] Medicare (Part B) Medicare Primary [id number] 2.16840.1.161565.3.227.99.572.35262.0 Self 1 [id number] [facility] Ppo Medigap Part B [id number] 2.16840.1.925859.3.227. 99.572.11108.0 Self [id number] Medicare (Part B) Medicare Primary [id number] 2.16840.1.202118.3.227.99.572.35072.0 Self 1 [id number] [facility] [facility] Ppo Medigap Part B [id number] 2.16840.1.565710.3.227. 99.572.89065.0 Self [id number] Medicare (Part B) Medicare Primary [id number] 2.16.840.1.422694.3.227.99.572.05125.0 Self 1 [id number] [facility] Ppo Medigap Part B [id number] 2.16840.1.662681.3.227. 99.572.91612.0 Self [id number] Medicare (Part B) Medicare Primary [id number] 2.16.840.1.866108.3.227.99.572.82149.0 Self 1 [id number] [facility] [facility] Ppo Medigap Part B [id number] 2.16.840.1.297749.3.227. 99.572.33550.0 Self [id number] Medicare (Part B) Medicare Primary [id number] 2.16.840.1.495611.3.227.99.572.67291.0 Self 1 [id number] [facility] [facility] Ppo Medigap Part B [id number] 2.16.840.1.394100.3.227. 99.572.58676.0 Self [id number] Medicare (Part B) Medicare Primary [id number] 2.16.840.1.464271.3.227.99.572.82340.0 Self 1 [id number] [facility] [facility] Ppo Medigap Part B [id number] 2.16.840.1.165583.3.227. 99.572.75982.0 Self [id number] Medicare (Part B) Medicare Primary [id number] 2.16.840.1.164672.3.227.99.572.05243.0 Self 1 [id number] [facility] [facility] Ppo Medigap Part B [id number] 2.16.840.1.703084.3.227. 99.572.47727.0 Self [id number] Medicare (Part B) Medicare Primary [id number] 2.16.840.1.589862.3.227.99.572.63415.0 Self 1 [id number] [facility] [facility] Ppo Medigap Part B [id number] 2.16.840.1.343478.3.227. 99.572.11672.0 Self [id number] Medicare (Part B) Medicare Primary [id number] 2.16.840.1.938894.3.227.99.572.93520.0 Self 1 [id number] [facility] [facility] Ppo Medigap Part B [id number] 2.16.840.1.963682.3.227. 99.572.41908.0 Self [id number] Medicare (Part B) Medicare Primary [id number] 2.16.840.1.894236.3.227.99.572.78772.0 Self 1 [id number] [facility] [facility] Ppo Medigap Part B [id number] 2.16.840.1.650523.3.227. 99.572.11860.0 Self [id number] Medicare (Part B) Medicare Primary [id number] 2.16.840.1.213034.3.227.99.572.61176.0 Self 1 [id number] Medicare [place] Medicare Primary [id number] Self [employer] Commercial [id number] Self MEDICARE [id number] SP [id number] [facility] [id number] SP [id number] UMR [facility] [id number] SP [id number] MEDICARE [id number] SP [id number] UMR O [id number] S [id number] MEDICARE C [id number] S [id number] Problems, Conditions, and Diagnoses Code Display Name Description Problem Type Effective Dates Data Source(s) I27.81 Chronic cor pulmonale Chronic cor pulmonale Problem 06/16/2021 12:00:00 AM EDT [facility] ([facility]) Surgeries/Procedures Procedure Description Date Indications Data Source(s) Gonioscopy W/Med Diag Eval 07/17/2021 12:00:00 AM EDT MED[facility] ([facility]) OFFICE OUTPATIENT VISIT 15 MINUTES 07/17/2021 12:00:00 AM EDT MED[facility] ([facility]) OFFICE OUTPATIENT VISIT 15 MINUTES 06/26/2021 12:00:00 AM EDT MED[facility] ([facility]) ECG ROUTINE ECG W/LEAST 12 LDS W/I&R 06/16/2021 12:00: 00 AM EDT MED[facility] ([facility]) OFFICE OUTPATIENT VISIT 25 MINUTES 06/16/2021 12:00:00 AM EDT MED[facility] ([facility]) OFFICE OUTPATIENT VISIT 25 MINUTES 06/15/2021 12:00:00 AM EDT MED[facility] ([facility]) OFFICE OUTPATIENT VISIT 25 MINUTES 06/05/2021 12:00:00 AM EDT MED[facility] ([facility]) OFFICE OUTPATIENT VISIT 15 MINUTES 04/05/2021 12:00:00 AM EDT MED[facility] ([facility]) Mammogram 04/04/2021 12:00:00 AM EDT M EDENT ([facility] WTW - did not get 2017 results OFFICE OUTPATIENT VISIT 25 MINUTES 03/28/2021 12:00:00 AM EDT MED[facility] ([facility]) OFFICE OUTPATIENT VISIT 25 MINUTES 03/20/2021 12:00:00 AM EDT MED[facility] ([facility]) OFFICE OUTPATIENT VISIT 25 MINUTES 03/09/2021 12:00:00 AM EDT MED[facility] ([facility]) Discission Sec Mem/Ant Hyaloid;Laser Surgery OS 2020 12:00:00 AM EDT MED[facility] ([facility]) Shave Biopsy Of Skin, Single Lesion 02/14/2021 12:00:0 0 AM EDT MED[facility] ([facility]) DESTRUCTION PREMALIGNANT LESION 1ST 02/14/2021 12:00:0 0 AM EDT [facility] ([facility]) OFFICE OUTPATIENT VISIT 25 MINUTES 02/14/2021 12:00:00 AM EDT MED[facility] ([facility]) Diabetic Foot Exam 01/24/2021 12:00:00 AM EDT [facility] ([facility] Gonioscopy W/Med Diag Eval 01/05/2021 12:00:00 AM EST [facility] ([facility]) Scan Computer Diag Imag W/Report Optic Nerve 12:00:00 AM EST [facility] ([facility]) Results ID Date Data Source [id number] 08/03/2021 08:42:00 AM EDT [facility] ([facility] Name Value Range Interpretation Code Description Data Susan rce(s) Supporting Document(s) Hemoglobin A1c/Hemoglobin.total in Blood 6.5 % 4.8-5.6 [facility] ([facility] A courtesy copy of this report has been sent to the patient, ID Date Data Source [id number] 08/04/2021 08:09:00 AM EDT [facility] Name Value Range Interpretation Code Description Data Susan rce(s) Supporting Document(s) Hemoglobin A1c 6.5 % 4.8-5.6 Above high normal [facility] Prediabetes: 5.7 - 6.4 Diabetes: >6.4 Glycemic control for adults with diabetes: <7.0 ID Date Data Source [id number] 07/12/2021 09:16:00 AM EDT [facility] ([facility]) Name Value Range Interpretation Code Description Data Susan rce(s) Supporting Document(s) Potassium [Moles/volume] in Serum or Plasma 4.5 mmol/L 3.5-5.2 [facility] ([facility]) A courtesy copy of this report has been sent to the patient, Laboratory test finding (navigational concept) Laboratory test result MED[facility] ([facility]) A courtesy copy of this report has been sent to the patient, ID Date Data Source [id number] 07/13/2021 06:05:00 AM EDT [facility] Name Value Range Interpretation Code Description Data Susan rce(s) Supporting Document(s) Potassium 4.5 mmol/L 3.5-5.2 [facility] ID Date Data Source [id number] 07/05/2021 03:00:00 PM EDT [facility] Name Value Range Interpretation Code Description Data Susan rce(s) Supporting Document(s) Follow Up [facility] OJWWWg5iTwGLPeEjHAPfYrdYYUifAVzpOZAfV8M7JZyiIh2SDLpimgQsMYTtCk2+WEQfYC1zqr9nWMGs gMy [file] SQUIRREL WORKER/kfvkLkYlQK4R11GtVZINPkbPGQOWtD6dfn2yIikt6JQ5wEPC73YRPgfW3OumbHBnoxqr9p3NOgoY Eden/bAMXU2jYq2Ch5CwpLjRMgHToar91nSjp77z0/XcKlu0POxFLZL1l8rHgEYLf+0ckNNKAsXI27TJU [file] jIxyRY0yBTdiDflNzUcH+Financial Controller/J07OC6uzIwBKtqr29n3NUUeQBFOasfRcHV4/eTVyZCjflzSCR6q228P [file] OXoMOmVq8vCAqy4Wm0kt1e/4qOiBXpwlbk9HbOucCZKeBCsPZ//o0ivXfLmkyhMoqYyZXFy3Sv7s+PROP MAKING SUPERVISOR Ioo/UKUm4Xvk+m7mZuGiIleZIII5zqOZBygEj8mIBi /nqGZbffsIN7eEOUFTaaQEYTp+WFawX10/LT5/SofjVQpZ4Tqiy7v7X/HDIM0+UVGAUo/H+qSgh/yVEq kPJjH39+DpPE7WfEhqFjjwG8+7y8NLmxAZ8PFToC7PzPUht/pRz5JTLUCgo7558XmspoCnQBcNx2UNnn P6f63s0zHUctXhrfOzneV0QDxNotCoXyhF6FQaiKIF 8d/cFoD+EiAV9doQlTn2dpofPi/1c436QXYnc0eqOksObMJe86QQC2MX4qcPrqgv/mQkjxL+iK02QmZK gHj9Df1itxG68dKMClFTn3abUm6vPXHyoyLERRcoE7AJkCnxiYf0Q5/qbOp++00xPNtWJ/96TC3/xxRR De3KtRz70UspcDLchMjtixDQ5ZUnhYcHHQI/o4ApOM WvQSS4c1w+4oQk74wBCXdoWabuzGzSOCHrnZR/d1mfhm18E3myooP/vcU6BB2nnF1ea1mYdQHya5mUNt 5aoFwrRO5aJLg8Ts3KvzJ3MhezrFl5jo0KXK4lLbVwT9+3o/BhFTCVwEpI/FsyShAxjX4o606CPFfe9w oDpMYGOs4F1+y8Aik7WkiLzDe5lSTnhtxNLTKhugiy 6/z5xCUdshfsotz9VwEdeUCUS4pIx5mY1LyhXdYDm9AYa/1GUCbuWQH015pb8hPmoRpz0e9pEqD763ji 6tiBm+fhahcMA9JIqtICilN4JK4Gqay8f5lCNuShWcn356fczHb93MH5nW5zhoFak9gZfZ/NXxIJF/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 [file] ca767Rcrgdzl0Z5aLNWISTa4TvK0OlBuzOoGtbUA5bD7BfrMgY569nxv9mPRTE+k1YBjsVV+project lead/JXZ [file] career based intervention coordinator/iwBV/u6FiHR4B8/7cHIPNKIIANg9a9TPFzcuawz/k00qatF24jVVf8H8jsPQDN6jLrLpbcNphK18s [file] TjDhW0jwB0RJGXLAPUR+zYUCCDQiz8CZ+LUQCLd7iU WsaGwaVRuIRIaR3SieFGDxuwn/1A03LEWyUMVI/LcdrATmdnwqMnIbHP1v5L430oo890DucfEr/W768n JbyemX3zHQvWr+z73Y62n2CxLhd2a9R2cTgtjar9NSLA0WBRx5+1upx834uO3p3bdK6Uy/9gFcn9Nyyt LGb3Ppg0Ec+bmGohzvcXPju8ujfKl7fNPR4HveUBnp RlCDT0Y4VaBsTPX7nXQVru3KTD4qAe1Uahv7wqHpbdxujgp/40lOOVaU3pgNt/83TSk1H/KjVSvbu2xd IqFCmfR2prIfhYtF7b39bZJ80DyFnYmj0ER/3w9iR2+MFryA0kLD8GKmAERTC6UDsxwVJPhvkK5BNrAU e7bSearDZkoJDiRneL5l/zIC+ZWw7vkI59uD1WwL+O l01H6PLVHlT/VVw1ZM/Zh/wqzsKFBT5+dJEIkLEL+aA1s7GTzeeWlmzhLhWukHXLn1hjw/aqjMUy1MzJ eP7mueLjUoUCCCGeEeuxho02OQUWaRAvV0yxhLpAb9X2+tT7+r4wsBvPH9bxpCLKf6hrIt0Hogd75CrI +fJVNuqn++SBGAt33dtdeEY5NX1HIjkv4bGN78iY OHzXADGrKTmNxt9LOJplFuQQyu1nOph3HoVkahl5pmgiTnHwLIwIvskajwB+Jt2RjFbFwkt6KZuug1fA myddfepeRCHTf3dQDR4lBseZSEeJsO18ywQJCZZzEAODkrXxi6wDwnEnt3PDDvFeO7n8ZORrekyMyE+E avx3NRWdqIpyKV/D2UvksfhlgvwB3JNna2CYHqHu6k h4jDViREt5PnrinKgIlXgsMYACFKUv7dSZhxnEWraehCyrEDKKwzTHJc0ELcatnjw4/nCupNHM0nL2hk kS+zYyMM36X+qHepSv5SLr4U2UkQjbtYHg7b+lwkEnpQflngN5us8cn1Ub+6i8H/K817/kWE75wVIuJ4 yjSZrTPB6TWLR2lw+gsZbHp0O4Rfn+0JHmJJKv1HUS GrNOvF17/qWE3ti36JeFzjohon3ciukYim92V/KtMXFOuqjWK0LEj4qTppArMhDSXRnCkE6V2rSD2K6N B6Xr/z8FC6SmAdbLuvEWm6veDATmUUhvTpOmgeyTQi7C3gWidbNEsOty+oPViyb9Fzf/gAb1TERfLQcx NfTRMs3sNs9ziOHycaVQQ7aXopNn39xedVMpnfCwWN RxeMOcQylBFMEGOhPQpjkmQ0huC0Y/nkpby7pr26mfHRECxL248n+dw1lExapE1wsRi/TMkQPsCxlvej 8Z0LIofwgZnw6SQihXNNrDBQ7sgR8fInY8k2jiGQosv5rX1+DYX8NUwGMdW30smP/Qh4LlfYLkFPwVAb XP3FEb9BrVRzjDXbeh77USXL3U9SLukpnWmjzosB7b Ijp5aMcYxZsutnSGejDyZPRssPFjObrgtD8Vj+F9Me5MHH1J+3u3xRCNnpb89WW7w5SOBaNDfhnahXxM electrical tests supervisor/xLQUbGMQ5Fms/coOZqiTEzUeHA8AJp+LPUdNv4mtK4yoNKi9kxlDsfA/vQRE1nNhnfEMmBaxfMVi [file] Manager Food+5Hb4Qn7zzY1VcbZOVPn6j2qVl1IMzzP6ON9zG5gaDN2s047Bu9U9CHpKLaG7Du1vwwGaU+NaAlUod [file] CONNER+MIxVa3ozA4aVQcotgxYcI4R/yWdOG0AwcT1RVPIJ0rCs4gAmLQS8gVuyoE6io9MYo2YtVoQnFGaP 5eqJhImqM/tqNnqy1dg4ft10SmnBkgsR7ITnfWyJ5mXBwpk3lFjCIRspn0U6gVVMitHgLJ/9wli9dylW bfKShaHMN/dAwKbaKaeJYRYDXIWZuU4xJTdmuXTqQI LJSZNnIQO2q6Ey2uzoXfQcuGKjGNGt9yfFavDQPRTx1LscbBdl4sL/Bj5ZxCvOkB8eVseooxfgORZ1yG UvDKv1p/z544f5LRe3OuoXZBOpl4Vmf+DhWnz9443K1yCIG2gfzOtBc2PG4jUUWO27u3N8RkSs3nClGh noé/lwoyMK18ScgPmRrIP2QXU3HKNRtfZ0IahpS2dc [file] Z2suPbR3GBa2OuWQsK2tgGjPtRrHKq+pcSr3l1+nurses educator+ [file] i8hBIIrVy+AcFlRxW1sYR8j+XbnhVdV8LV5HBFrzXGXe994ZGbHd4VEE72d4EWwRIytftPXbK0yup+accountant clerk [file] WhOr3eIL8Iq73CAw0y+Kf2W14YK/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/Z0kKZOH/wWO+iM2XJwwrxEjoGYfIP4KMD9eb2TsGZcdFLUtSl [file] maternity floor supervisor/GnmHEq/Exj5hSj7w2S2IQ9yXyYgwS1gQVruUnKisqwsjMwP+GkKCacyPjVnpmncGnVCr18p92RzW k1WaHfmVTTWuCbc81HmX/dSVc4rYAWz7RjQtv626GVn8jJUkC6ge+36HCO6U5E76A0Z9k3Nizp4B0DXY ykankB1nqmgBwM8qgf0V7u0B4j4tK6JyrukWhrjhMq [file] 6Sz1lhMebcUyu3EbITDncKnv1dEZCjTB9wVm4/ifuwhPFVciQyNhE834N9WDv+Bernabe/clWUTB8dj0zneg 41eifWHt0XiU2UfAvjxpbuJ/HjjoY+Ko43HNR++OjLXA66uEjLzaLtxDj/O8GAPx/ecJMuXD2eW7wp7j pguBAL6gfuJ3lj4p1V819RgQ69zCkx8FZvOrIrIOVg ucof3wpBs72bGqJYYyOgbNmHueaq1O5ZZjOQeGK7JE6QKf8M7DDege0h1q3Ad/2Y1my5Y/SjzQx410bE RS18FuTdj615vLs88T7YEMJNIAcL6phnPwqxtu23vK+UlQ1WjK1W1+N2y1IeQVHU5n09j+T5af94k85c IhZ9uCnQko10briRvuK9Gq+BxHn6RSjcYP2k2bQb/C yQTfWffZOhPQWInpk/RA67zhFZdszdORze5GNj08/EWgQbF4fyh+GPuzku/9hwnvZiInc9dPV++BWyIR 2pyooj1ghTgm3cA8eKi8LJYv81fyret4OldOKn5I4h3UzoSpPFiQP0FCSx3DWKTzfebCbuebRReoAJoD jS+SczBNGiE24yirMLclBSdZbsyE25Lw/YNv4pRqZY AqFWv8Zu6a9BRXxR0wR1dUo9t3REP7agaxY599LzIv69PTT1dxqn61j+z1O01Yb6QYq8z/noYuG2lyKk dcQLh0cQqQKGHQ54X5+xX/QmfgvwBXNoICZiVvVSXXDu3Axx1deOL070wA7I44Drr4hoJ4zuqqGlPefV TbppRi8XoBD4cJwEhb2p0+uPHiKhzJGObsPeu8wJ5L 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/QqevNcifNpyGe+pl2q/moMFdLXZV4WpJb97dePsfhfMM8lyBZQwRrDdOf1V4jfERAumtSu3egZZeR [file] Jose Luis/9hzeQ7IL0NkIYG9zN+FmZ19y90hS4QQKVy3FjeikD3wgSPuEcUOM/dY0QsduEKvZBfs6vhtCe [file] obusnmDHN/+C213rlbd24jkfpekR/fB1J8pobgfmupyErk7cNEXzmxooO8h/rQ5CCD8H1irfyWX4U/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 [file] SYxLd78XFSza+accountant clerk/lSnBwOtsgZTNCh27a7Ns1UIPst [file] A89Be99xB8Tp7qOgn4vZ0pQxu13b40LAdeyVApo516 Z3tPRAH1/VSokOmrTIElhz6cGCaXqQjRqc4UBmbs65Npn7KAaSdUTfaO11FEJuw5VF2YTdPuFnj+UhGm 8qx29K1/dlwIxCuV1vr47gn2gSzNxRorKvlpwRMVKQDxzCrSiJuPT9aK/b99w2HICt06cKlWSUHOodUB IRUG5I2375wWRup+LYXEUSzdZsx829E7iOVpKFU4gS bVA+n+U4CeoCKrZ/NSqf42Tf4O3x/1T74MPUcNvF5QuoJaIL54Hfm6I6A9rg+zhOR13wDgDK1bEV8QDv 8C3jjz+R0DZyTnnTkXAKldEicKOQKJqocRJgufN97xpn2bhCm5FCsh/jk+YlRTKn0e4C+mAgzm8Bnmkq d6yAee1P3dqyyd+ZK2enzwfMZmPtKSmFCnAD4uO1Cv K5ZBgEi+vp 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 creative strategy/oPhwgkoU0KW73RK2R7wr/jyjRZE99CFXGbFtRPRbo8gYl9FDErPsnIzZtMMbila6PJYuP [file] 0FlZWKP51uxFuJ3rSjb8cO8vvK8kKyp/[place]+VS8708kaFY2y2AbuKFGBoT3i6ZBcaXgVQp3egy343EH [file] OwNMC5OcUUYG5W1ZwaYHYMZyG3CX/A800N1+PB [file] Yan/NXNPbQvSc0o2/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/pCkxVnXiSY34or6UhdfVXWmjFjHXVBvtsyGLCDl74cF51PSkUNqdnD8g9P1z [file] esE5F2Ihv2onyivBJIhj1zaIVhjTAUOSFHgPnkN2FMjI55lFtm9Eb9sNP26UgqfV4O2EiZow+GQ+accountant clerk/n [file] 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/yjRXNMf/mh7Fmdfe72kHW7FBWvtTbpK+8JOH+lGjw7IRoOvWuF6o4b+hXnVWoztlOKsQjjyCFdCr [file] 9GFdnfIFIfMACC6DYI6ah0VjDQAmHPpprxWoGyqVFKtwxCAtgPuaXJUIXmF4GiKhVDQRKoNeMP7F ID Date Data Source [id number] 06/28/2021 08:28:00 AM EDT [facility] [place] Name Value Range Interpretation Code Description Data Susan rce(s) Supporting Document(s) Magnesium [Mass/volume] in Serum or Plasma 1.8 mg/dL 1.6-2.3 [facility] ([facility]) Laboratory test finding (navigational concept) Laboratory test result [facility] ([facility]) ID Date Data Source [id number] 06/28/2021 08:28:00 AM EDT [facility] [place] Name Value Range Interpretation Code Description Data Susan rce(s) Supporting Document(s) Cholesterol [Mass/volume] in Serum or Plasma 83 mg/dL 100-199 [facility] ([facility]) Triglyceride [Mass/volume] in Serum or Plasma 56 mg/dL 0-149 [facility] ([facility]) Cholesterol in HDL [Mass/volume] in Serum or Plasma 56 mg/dL [facility] ([facility]) Laboratory test finding (navigational concept) 14 mg/dL 5-40 [facility] ([facility]) Laboratory test finding (navigational concept) 13 mg/dL 0-99 [facility] ([facility]) Comment: Laboratory test result [facility] ([facility]) ID Date Data Source [id number] 06/28/2021 08:28:00 AM EDT [facility] [place] Name Value Range Interpretation Code Description Data Susan rce(s) Supporting Document(s) Natriuretic peptide.B prohormone N-Terminal [Mass/volu me] in Serum or Plasma 143 pg/mL 0-301 [facility] ([facility]) <content>The following cut-points have b een suggested for the</content>
<content>use of proBNP for the diagnostic evaluation of heart</content>
<content>failure (HF) in patients with acute dy spnea:</content>
<content>Modality Age Optimal Cut</content>
<content>(years) Point</content>
<content> ---</content>
<content>Diagnosis (rule in HF) <50 450 pg/mL</content>
<content>50 - 75 900 pg/mL</content>
<content>>75 1800 pg/mL</content>
<content> Exclusion (rule out HF) Age independent 300 pg/mL</content>
<content></content> ID Date Data Source [id number] 06/28/2021 08:28:00 AM EDT [facility] [place] Name Value Range Interpretation Code Description Data Susan rce(s) Supporting Document(s) Glucose 122 mg/dL 65-99 [facility] ([facility]) Urea nitrogen [Mass/volume] in Serum or Plasma 37 mg/dL 8-27 [facility] ([facility]) Creatinine 1.06 mg/dL 0.57-1.00 [facility] ([facility]) eGFR If Africn Am 61 mL/min/1.73 [facility] ([facility]) [facility] currently reports eGFR in comp liance with the current recommendations of the National Kidney Foundation. [facility] will update reporting as new guidelines are published from the NKF-ASN Task force. eGFR If NonAfricn Am 53 mL/min/1.73 [facility] NT ([facility]) Sodium 140 mmol/L 134-144 [facility] ([facility]) Urea nitrogen/Creatinine [Mass Ratio] in Serum or Plasma 35 1 2-28 [facility] ([facility]) Potassium [Moles/volume] in Serum or Plasma 5.3 mmol/L 3.5-5.2 [facility] ([facility]) Carbon dioxide, total [Moles/volume] in Serum or Plasma 24 mmol/L 20 -29 [facility] ([facility]) Chloride [Moles/volume] in Serum or Plasma 104 mmol/L 96-106 [facility] ([facility]) Calcium [Mass/volume] in Serum or Plasma 10.5 mg/dL 8.7-10.3 [facility] ([facility]) Verified by repeat analysis ID Date Data Source [id number] 06/29/2021 08:06:00 AM EDT [facility] Name Value [...] by repeat analysis ID Date Data Source [id number] 06/30/2021 06:05:00 AM EDT [facility] Name Value [...] independent 300 pg/mL ID Date Data Source [id number] 06/29/2021 08:06:00 AM EDT [facility] Name Value Range Interpretation Code Description Data Susan rce(s) Supporting Document(s) Cholesterol, Total 83 mg/dL 100-199 Below low normal [facility] Triglycerides 56 mg/dL 0-149 [facility] HDL Cholesterol 56 mg/dL >39 [facility] VLDL Cholesterol Bassem 14 mg/dL 5-40 [facility] LDL Chol Calc (NIH) 13 mg/dL 0-99 [facility] ID Date Data Source [id number] 06/29/2021 08:06:00 AM EDT [facility] Name Value Range Interpretation Code Description Data Susan rce(s) Supporting Document(s) Magnesium 1.8 mg/dL 1.6-2.3 [facility] ID Date Data Source [id number] 06/05/2021 01:11:00 PM EDT [facility] ([facility]) Name Value Range Interpretation Code Description Data Susan rce(s) Supporting Document(s) Bacteria identified in Unspecified specimen by Aerobe culture Laboratory test result [facility] ([facility]) ID Date Data Source [id number] 06/05/2021 11:32:00 AM EDT [facility] ([facility]) Name Value Range Interpretation Code Description Data Susan rce(s) Supporting Document(s) Laboratory test finding (navigational concept) Laboratory test result [facility] ([facility]) SRC:Scalp ID Date Data Source [id number] 06/05/2021 11:32:00 AM EDT [facility] ([facility]) Name Value Range Interpretation Code Description Data Susan rce(s) Supporting Document(s) Bacteria identified in Unspecified specimen by Anaerob e culture Laboratory test result [facility] ([facility]) SRC:Scalp Bacteria identified in Unspecified specimen by Culture Laborator y test result [facility] ([facility]) SRC:Scalp Bacteria identified in Unspecified specimen by Culture Laborator y test result Abnormal (applies to non-numeric results) [facility] ([facility]) SRC:Scalp Bacteria identified in Unspecified specimen by Aerobe culture Laboratory test result Abnormal (applies to non-numeric results) [facility] ([facility]) SRC:Scalp Other Antibiotic [Susceptibility] Laboratory test result [facility] ([facility]) SRC:Scalp ID Date Data Source [id number] 05/25/2021 12:05:00 AM EDT [facility] Name Value Range Interpretation Code Description Data Susan rce(s) Supporting Document(s) C difficile Toxins A+B, EIA Negative Negative [facility] ID Date Data Source [id number] 05/27/2021 08:05:00 AM EDT [facility] Name Value Range Interpretation Code Description Data Susan rce(s) Supporting Document(s) E coli Shiga Toxin EIA Negative Negative [facility] Salmonella/Shigella Screen Final report [facility] ID Date Data Source [id number] 05/29/2021 12:05:00 AM EDT [facility] Name Value Range Interpretation Code Description Data Susan rce(s) Supporting Document(s) Pancreatic Elastase, Fecal 160 ug Elast./g >200 Below low normal [facility] Severe Pancreatic Insufficiency: <100 Moderate Pancreatic Insufficiency: 100 - 200 Normal: >200 ID Date Data Source [id number] 05/31/2021 12:05:00 AM EDT [facility] Name Value Range Interpretation Code Description Data Susan rce(s) Supporting Document(s) Ova + Parasite Exam Final report [facility] These results were obtained using wet pr eparation(s) and trichromestained smear. This test does not include testing for Cryptosporidiumparvum, Cyclospora, or Microsporidia. ID Date Data Source [id number] 05/27/2021 08:05:00 AM EDT [facility] Name Value Range Interpretation Code Description Data Susan rce(s) Supporting Document(s) Result 1 [facility] No Salmonella or Shigella recovered. ID Date Data Source [id number] 05/31/2021 12:05:00 AM EDT [facility] Name Value Range Interpretation Code Description Data Susan rce(s) Supporting Document(s) Result 1 [facility] No ova, cysts, or parasites seen. One ne gative specimen does not rule out the possibility of aparasitic infection. ID Date Data Source [id number] 05/25/2021 04:06:00 PM EDT [facility] Name Value Range Interpretation Code Description Data Susan rce(s) Supporting Document(s) Calprotectin, Fecal 51 ug/g 0-120 [facility] Concentration Interpretation Follo w-Up<16 - 50 ug/g Normal None>50 -120 ug/g Borderline Re-evaluate in 4-6 weeks >120 ug/g Abnormal Repeat as clinically indicated ID Date Data Source [id number] 05/27/2021 08:05:00 AM EDT [facility] Name Value Range Interpretation Code Description Data Susan rce(s) Supporting Document(s) Result 1 [facility] No Campylobacter species isolated. ID Date Data Source [facility] DIGITAL / BRITNEY BILATERAL MAMMO SCREENING (Ultraso und if indicated) 04/27/2021 12:00:00 AM EDT eCW1 ([facility]) Name Value Range Interpretation Code Description Data Susan rce(s) Supporting Document(s) [facility] DIGITAL / BRITNEY BILAT ERAL MAMMO SCREENING (Ultrasound if indicated) eCW1 ([facility]) ID Date Data Source [id number] 03/20/2021 12:15:00 PM EDT [facility] ([facility]) Name Value Range Interpretation Code Description Data Susan rce(s) Supporting Document(s) Laboratory test finding (navigational concept) Laboratory test result [facility] ([facility]) See progress note 03-28-21 ID Date Data Source [id number] 03/20/2021 12:15:00 PM EDT [facility] ([facility]) Name Value Range Interpretation Code Description Data Susan rce(s) Supporting Document(s) Bacteria identified in Unspecified specimen by Anaerob e culture Laboratory test result [facility] ([facility]) See progress note 03-28-21 Bacteria identified in Unspecified specimen by Culture Laborator y test result [facility] ([facility]) See progress note 03-28-21 Bacteria identified in Unspecified specimen by Aerobe culture Laboratory test result [facility] ([facility]) See progress note 03-28-21 Bacteria identified in Unspecified specimen by Culture Laborator y test result [facility] ([facility]) See progress note 03-28-21 ID Date Data Source [id number] 02/14/2021 10:37:00 AM EDT [facility] ([facility]) Name Value Range Interpretation Code Description Data Susan rce(s) Supporting Document(s) Laboratory test finding (navigational concept) Laboratory test result [facility] ([facility]) Will start with warm compress twice kaitlin y x 1 week to loosen thicker scale then if less will start Efudex cream BID Laboratory test finding (navigational concept) Laboratory test result [facility] ([facility]) Will start with warm compress twice kaitlin y x 1 week to loosen thicker scale then if less will start Efudex cream BID ID Date Data Source [id number] 02/14/2021 10:34:00 AM EDT [facility] ([facility]) Name Value Range Interpretation Code Description Data Susan rce(s) Supporting Document(s) Bacterial biochemical profile [Identifier] in Isolate by Culture Laboratory test result [facility] ([facility]) ID Date Data Source [id number] 01/13/2021 02:34:00 PM EST [facility] ([facility]) Name Value Range Interpretation Code Description Data Susan rce(s) Supporting Document(s) Hemoglobin A1c/Hemoglobin.total in Blood 6.6 [facility] ([facility]) ID Date Data Source [id number] 01/13/2021 02:34:00 PM EST [facility] ([facility]) Name Value Range Interpretation Code Description Data Susan rce(s) Supporting Document(s) Triglycerides 97 [facility] ([facility]) Cholesterol 105 100-199 [facility] ([facility]) Cholesterol in LDL [Mass/volume] in Serum or Plasma by calculation Laboratory test result [facility] ([facility]) HDL 71 40-60 [facility] ([facility]) Chol/HDL Ratio Laboratory test result [facility] ([facility]) ID Date Data Source [id number] 01/13/2021 02:34:00 PM EST [facility] ([facility]) Name Value Range Interpretation Code Description Data Susan rce(s) Supporting Document(s) Albumin [Mass/volume] in Serum or Plasma 4.4 [facility] ([facility]) Alanine aminotransferase [Enzymatic activity/volume] in Serum or Plasma 108 [facility] ([facility]) Calcium [Mass/volume] in Serum or Plasma 10.4 [facility] ([facility]) Carbon dioxide, total [Moles/volume] in Serum or Plasma 23 [facility] ([facility]) Chloride [Moles/volume] in Serum or Plasma 98 [facility] ([facility]) Alkaline phosphatase [Enzymatic activity/volume] in Serum or Plasma 1 08 [facility] ([facility]) Potassium [Moles/volume] in Serum or Plasma 4.6 [facility] ([facility]) Sodium 135 [facility] ([facility]) Protein [Mass/volume] in Serum or Plasma 6.5 [facility] ([facility]) Aspartate aminotransferase [Enzymatic activity/volume] in Serum or Plasma 19 [facility] ([facility]) Glucose 171 70-100 [facility] ([facility]) Urea nitrogen [Mass/volume] in Serum or Plasma 27 [facility] ([facility]) Creatinine For GFR 1.15 [facility] ([facility]) ID Date Data Source [id number] 01/13/2021 02:34:00 PM EST [facility] ([facility]) Name Value Range Interpretation Code Description Data Susan rce(s) Supporting Document(s) White Blood Count 8.0 3.4-10.8 [facility] ([facility]) Red Blood Count 4.02 3.77-5.28 [facility] ([facility]) Platelets 332 150-450 [facility] ([facility]) Hemoglobin 11.9 11.1-15.9 [facility] ([facility]) Hematocrit 36.3 34.0-46.6 [facility] ([facility]) ID Date Data Source [id number] 01/25/2021 03:05:00 PM EDT [facility] Name Value Range Interpretation Code Description Data Susan rce(s) Supporting Document(s) Hemoglobin A1c 6.6 % 4.8-5.6 Above high normal [facility] Prediabetes: 5.7 - 6.4 Diabetes: >6.4 Glycemic control for adults with diabetes: <7.0 ID Date Data Source [id number] 01/25/2021 03:05:00 PM EDT [facility] Name Value Range Interpretation Code Description Data Susan rce(s) Supporting Document(s) Written Authorization [facility] Written Authorization Received.Authoriza tion received from DR.KAREN BARRNO [id number] by Ligia Puentes ID Date Data Source [id number] 01/13/2021 01:00:00 PM EST [facility] ([facility] [...] Please provide requested information and fax to [phone]. ID Date Data Source [id number] 01/13/2021 01:00:00 PM EST [facility] ([facility] Name Value Range Interpretation Code Description Data Susan rce(s) Supporting Document(s) Hemoglobin A1c/Hemoglobin.total in Blood 6.6 % 4.8-5.6 [facility] ([facility] <content>Prediabetes: 5.7 - 6.4</content >
<content>Diabetes: >6.4</content>
<content>Glycemic control for adults with diabetes: <7.0</content>
<content></content> ID Date Data Source [id number] 01/13/2021 01:00:00 PM EST [facility] ([facility] [...] to the patient, ID Date Data Source [id number] 01/13/2021 01:00:00 PM EST [facility] ([facility] Name Value Range Interpretation Code Description Data Susan rce(s) Supporting Document(s) Cholesterol [Mass/volume] in Serum or Plasma 105 mg/dL 100-199 [facility] ([facility] A courtesy copy of this [...] to the patient, ID Date Data Source [id number] 01/13/2021 01:00:00 PM EST [facility] ([facility] [...] mated count 90 fL 79-97 [facility] ([facility] A courtesy [...] to the patient, ID Date Data Source [id number] 01/13/2021 01:00:00 PM EST [facility] ([facility] Name Value Range Interpretation Code Description Data Susan rce(s) Supporting Document(s) Glucose [Mass/volume] in Serum or Plasma 171 mg/dL 65-99 [facility] ([facility] A courtesy copy of this [...] to the patient, ID Date Data Source [id number] 01/14/2021 05:05:00 AM EST [facility] Name Value [...] 0.0-0.1 [facility] ID Date Data Source [id number] 01/14/2021 04:06:00 PM EST [facility] Name Value Range Interpretation Code Description Data Susan rce(s) Supporting Document(s) Creatinine, Urine 62.2 mg/dL Not Estab. [facility] Albumin, Urine Not Estab. [facility] Alb/Creat Ratio 0-29 [facility] No rmal: 0 - 29 Moderately increased: 30 - 300 Severely increased: >300 ID Date Data Source [id number] 01/14/2021 05:05:00 AM EST [facility] Name Value [...] IU/L 0-32 [facility] ID Date Data Source [id number] 01/14/2021 05:05:00 AM EST [facility] Name Value [...] is a former smoker [facility] ([facility]) Smoking 06/16/2021 12:00:00 AM EDT Patient is a former smoker completed Patient is a former smoker [facility] ([facility]) Smoking 01/24/2021 12:00:00 AM EDT Patient is [...] 98 % [facility] ([facility] Systolic blood pressure 131 mm[Hg] 131 mm[Hg] M [facility] ([facility] Diastolic blood pressure 54 mm[Hg] 54 mm[Hg] [facility] ([facility] Heart rate 59 /min 59 /min [facility] ([facility] Body temperature 97.3 [degF] 97.3 [degF] [facility] ([facility] [place] body weight 115 [lb_av] 115 [lb_av] MED[facility] T ([facility] Body mass index (BMI) [Ratio] 21.7 kg/m2 21.7 k g/m2 [facility] ([facility] Intraocular pressure Right eye 13 mm[Hg] 13 mm [Hg] [facility] ([facility]) Ap Intraocular pressure Left eye 14 mm[Hg] 14 mm[ Hg] [facility] ([facility]) Ap Systolic blood pressure 116 mm[Hg] 116 mm[Hg] [facility] ([facility]) Diastolic blood pressure 72 mm[Hg] 72 mm[Hg] [facility] ([facility]) Body weight 131.00 [lb_av] 131.00 [lb_av] MED[facility] T ([facility]) Body height 63 [in_i] 63 [in_i] [facility] ([facility]) 5'3" Body mass index (BMI) [Ratio] 23.2 kg/m2 23.2 k g/m2 [facility] ([facility]) Body weight 125.00 [lb_av] 125.00 [lb_av] [facility] T ([facility]) Body height 64 [in_i] 64 [in_i] [facility] ([facility]) 5'4" Body mass index (BMI) [Ratio] 21.5 kg/m2 21.5 k g/m2 [facility] ([facility]) Systolic blood pressure--sitting 102 mm[Hg] 102 mm[Hg] [facility] ([facility]) Ra, medium cuff Diastolic blood pressure--sitting 58 mm[Hg] 58 mm[Hg] [facility] ([facility]) Ra, medium cuff Body mass index (BMI) [Ratio] 23.2 kg/m2 23.2 k g/m2 [facility] ([facility]) Body weight 131.00 [lb_av] 131.00 [lb_av] MED[facility] T ([facility]) Systolic blood pressure 130 mm[Hg] 130 mm[Hg] [facility] ([facility]) Diastolic blood pressure 60 mm[Hg] 60 mm[Hg] [facility] ([facility]) Body height 63 [in_i] 63 [in_i] [facility] ([facility]) 5'3" Systolic blood pressure 122 mm[Hg] 122 mm[Hg] [facility] ([facility]) Diastolic blood pressure 82 mm[Hg] 82 mm[Hg] [facility] ([facility]) Body weight 136.00 [lb_av] 136.00 [lb_av] MEDEN T ([facility]) Respiratory rate 18 /min 18 /min [facility] ( [facility]) Diastolic blood pressure 64 mm[Hg] 64 mm[Hg] eCW1 ([facility]) Body weight 142.6 [lb_av] 142.6 [lb_av] eCW1 ([facility]) Body height 64 [in_i] 64 [in_i] eCW1 ([facility]) Body mass index (BMI) [Ratio] 24.47 kg/m2 24.47 kg/m2 eCW1 ([facility]) Systolic blood pressure 136 mm[Hg] 136 mm[Hg] e CW1 ([facility]) Respiratory rate 18 /min 18 /min MEDENT ( [facility]) Systolic blood pressure 136 mm[Hg] 136 mm[Hg] M EDENT ([facility]) Diastolic blood pressure 74 mm[Hg] 74 mm[Hg] MEDENT ([facility]) Body weight 140.00 [lb_av] 140.00 [lb_av] MEDEN T ([facility]) Intraocular pressure Right eye 14 mm[Hg] 14 mm [Hg] MEDENT ([facility]) Ap 12:42 PM Intraocular pressure Left eye 15 mm[Hg] 15 mm[ Hg] MEDENT ([facility]) Ap 12:42 PM Systolic blood pressure 146 mm[Hg] 146 mm[Hg] M CESARIO ([facility] Diastolic blood pressure 56 mm[Hg] 56 mm[Hg] MEDENT ([facility] Systolic blood pressure 129 mm[Hg] 129 mm[Hg] M CESARIO ([facility] recheck Diastolic blood pressure 67 mm[Hg] 67 mm[Hg] LOTUS ([facility] recheck Heart rate 66 /min 66 /min MEDCLARKE ([facility] Body temperature 97.1 [degF] 97.1 [degF] MEDENT ([facility] Respiratory rate 16 /min 16 /min MEDENT ( [facility] Body height 63.5 [in_i] 63.5 [in_i] MEDENT ([facility] 5'3.50" Body weight 145.12 [lb_av] 145.12 [lb_av] MEDEN T ([facility] Oxygen saturation in Arterial blood by Pulse oximetry 98 % 98 % MEDENT ([facility] [place] body weight 115 [lb_av] 115 [lb_av] MEDEN T ([facility] Body mass index (BMI) [Ratio] 25.3 kg/m2 25.3 k g/m2 MEDENT ([facility] Intraocular pressure Right eye 15 mm[Hg] 15 mm [Hg] MEDENT ([facility]) Ap Intraocular pressure Left eye 17 mm[Hg] 17 mm[ Hg] MEDENT ([facility]) Ap Systolic blood pressure 136 mm[Hg] 136 mm[Hg] M EDENT ([facility]) Diastolic blood pressure 87 mm[Hg] 87 mm[Hg] MEDENT ([facility]) Heart rate 67 /min 67 /min MEDENT ([facility]) Respiratory rate 16 /min 16 /min MEDENT ( [facility]) Oxygen saturation in Arterial blood by Pulse oximetry 98 % 98 % MEDENT ([facility]) Body temperature 98.4 [degF] 98.4 [degF] MEDENT ([facility], [facility]) Body weight 145.00 [lb_av] 145.00 [lb_av] MEDEN T ([facility]) Body height 64 [in_i] 64 [in_i] MEDENT ([facility]) 5'4" Body mass index (BMI) [Ratio] 24.9 kg/m2 24.9 k g/m2 MEDENT ([facility]) Systolic blood pressure 170 mm[Hg] 170 mm[Hg] M EDENT ([facility] Diastolic blood pressure 83 mm[Hg] 83 mm[Hg] MEDENT ([facility] Systolic blood pressure 159 mm[Hg] 159 mm[Hg] EDENT ([facility] Diastolic blood [...] 97 % MEDENT ([facility] [place] body weight 115 [lb_av] 115 [lb_av] MEDEN T ([facility] Body mass index (BMI) [Ratio] 25.5 kg/m2 25.5 k g/m2 MEDENT ([facility] Diastolic blood pressure 75 mm[Hg] 75 mm[Hg] MEDENT ([facility]) Heart rate 78 /min 78 /min MEDENT ([facility], [facility]) Respiratory rate 16 /min 16 /min MEDENT ( [facility]) Systolic blood pressure 145 mm[Hg] 145 mm[Hg] M EDENT ([facility]) Oxygen saturation in Arterial blood by Pulse oximetry 99 % 99 % MEDENT ([facility]) Body temperature 98.7 [degF] 98.7 [degF] MEDENT ([facility]) Body weight 145.00 [lb_av] 145.00 [lb_av] MEDEN T ([facility], [facility]) Body height 64 [in_i] 64 [in_i] MEDENT ([facility]) 5'4" Body mass index (BMI) [Ratio] 24.9 kg/m2 24.9 k g/m2 MEDENT ([facility]) Diastolic blood pressure 61 mm[Hg] 61 mm[Hg] MEDENT ([facility] Heart rate 65 /min 65 /min MEDENT ([facility] Body temperature 98.5 [degF] 98.5 [degF] MEDENT ([facility] Respiratory rate 18 /min 18 /min MEDENT ( [facility] Systolic blood pressure 164 mm[Hg] 164 mm[Hg] [facility] Diastolic blood pressure 71 mm[Hg] 71 mm[Hg] MEDENT ([facility] Systolic blood pressure 138 mm[Hg] 138 mm[Hg] [facility] Body height 63.5 [in_i] 63.5 [in_i] MEDENT ([facility] 5'3.50" Body weight 145.50 [lb_av] 145.50 [lb_av] MEDEN T ([facility] Oxygen saturation in Arterial blood by Pulse oximetry 98 % 98 % MEDCLARKE ([facility] [place] body weight 115 [lb_av] 115 [lb_av] KAILA Lim ([facility] Body mass index (BMI) [Ratio] 25.4 kg/m2 25.4 k g/m2 LOTUS ([facility]
[2021-08-25 13:40] LABS: BASO % 0.4 % (0.0-1.0); EOS # 0.1 10^3/uL (0.0-0.5); EOS % 1.3 % (0.0-3.0); HEMATOCRIT 35.6 % (36.0-47.0); HEMOGLOBIN 11.4 g/dl (12.0-15.5); LYMPH # 0.6 10^3/uL (1.5-5.0); LYMPH % 11.1 % (24.0-44.0); MEAN CORPUSCULAR HEMOGLOBIN 29.9 pg (27.0-33.0); MEAN CORPUSCULAR VOLUME 93.4 fl (80.0-96.0); MONO # 0.5 10^3/uL (0.0-0.8); MONO % 9.6 % (2.0-8.0); NEUTROPHILS # 4.2 10^3/uL (1.5-8.5); NEUTROPHILS % 76.9 % (36.0-66.0); PLATELET COUNT, AUTOMATED 264 10^3/uL (150-450); RED BLOOD COUNT 3.81 10^6/uL (4.00-5.40); WHITE BLOOD COUNT 5.4 10^3/uL (4.0-10.0)
[2021-08-25 14:19] LABS: ALBUMIN 3.5 GM/DL (3.2-5.2); ALT/SGPT 25 U/L (12-78); BILIRUBIN,DIRECT 0.2 MG/DL (0.0-0.2); BILIRUBIN,TOTAL 0.6 MG/DL (0.2-1.0); BLOOD UREA NITROGEN 40 MG/DL (7-18); CALCIUM LEVEL 10.8 MG/DL (8.8-10.2); CARBON DIOXIDE LEVEL 27 MEQ/L (21-32); CHLORIDE LEVEL 107 MEQ/L (98-107); CK-MB VALUE MASS 1.9 NG/ML (<3.6); CPK CREATINE PHOSPHOKINASE 66 U/L (26-192); CREATININE FOR GFR 1.04 MG/DL (0.55-1.30); GLOMERULAR FILTRATION RATE 55.6 (>39); GLUCOSE, FASTING 118 MG/DL (70-100); LIPASE 90 U/L (73-393); MB/CK RELATIVE INDEX 2.88 (< OR =4); NT-PRO BNP 116 PG/ML (<125); POTASSIUM SERUM 3.9 MEQ/L (3.5-5.1); SODIUM LEVEL 139 MEQ/L (136-145); TOTAL PROTEIN 6.6 GM/DL (6.4-8.2); TROPONIN I < 0.02 NG/ML (< 0.10)
[2021-08-25] MEDS ORDERED: NS 500 ML IV ONE (14:35)
[2021-08-25] MEDS ORDERED: ISOVUE-370 76% 100ML VIAL As Ordered ONE (14:42)
--- NOTE | 2021-08-25 15:22 | REP ---
INDICATION: chest pain; hx of PE; pos dimer COMPARISON: 06/14/2009 a standard contrast-enhanced chest CT and the latest prior TECHNIQUE: CT angiography of the chest attention pulmonary arteries after the intravenous administration of 75 cc Isovue 370. FINDINGS: There is excellent visualization of the pulmonary arterial vasculature. No focal filling defects are present that would be considered consistent with acute pulmonary emboli. The thoracic aorta is within normal limits. There is no mediastinal or hilar adenopathy. There are no pleural effusions. There is a possible minimal pericardial effusion versus mild pericardial thickening. The imaged upper abdomen shows a cyst in the left kidney unchanged from the abdominal CT of 04/20/2019. The imaged osseous structures are within normal limits for the patient's age. Evaluation of the lung rust shows bibasilar subsegmental atelectatic changes. No significant abnormal nodules, masses, or opacities have developed since the last exam.. IMPRESSION: There is no evidence of acute disease. Findings as described above. <Electronically signed by Tu Milton > 08/25/21 [id number]
[2021-08-25 16:45] VITALS: BP 158/73
--- NOTE | 2021-08-26 06:37 | ECGEPIP ---
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
== END 2021-08-25 16:56 | disposition home or self-care (01) ==
LOC: M ED 10:42
DX: R07.89 Other chest pain (principal); E11.9 Type 2 diabetes mellitus without complications; I10 Essential (primary) hypertension; Z86.711 Personal history of pulmonary embolism; Z79.899 Other long term (current) drug therapy; Z79.82 Long term (current) use of aspirin; Z79.84 Long term (current) use of oral hypoglycemic drugs
CPT/HCPCS: 71045; 71275; 80048; 80076; 82550; 82553; 83690; 83880; 84443; 84484; 85025; 85379; 93005; 93041; 94760; 96360; 96361; 99285; Q9967

== ENCOUNTER → 2021-09-13 | Outpatient (CLI) | payer MEDICARE, OTHER ==
--- NOTE | 2021-09-13 11:29 | REP ---
INDICATION: OTH POSTPROCEDURAL COMPLICATIONS AND DISORDERS OF DGSTV SYS. COMPARISON: 06/15/2021 FINDINGS: KUB shows the intestinal gas pattern to be nonspecific. The organ silhouettes insofar as delineated are unremarkable. There is no evidence of free intraperitoneal air. There is a calcification on the right at the level of the transverse process of L3 status quo. This calcification was present on the KUB is 06/30/2019. There are multiple bilateral pelvic calcifications status quo. The bones are demineralized. Chronic degenerative changes seen involving the spine, sacroiliac joints common hip status quo. IMPRESSION: Stable appearing chronic changes <Electronically signed by Tu Milton > 09/13/21 1124
== END ==
LOC: M RAD 09:46
PROVIDERS: ATTEND Internal Medicine Gastroenterology
DX: K91.89 Other postprocedural complications and disorders of digestive system (principal); K62.89 Other specified diseases of anus and rectum; K62.5 Hemorrhage of anus and rectum

== ENCOUNTER → 2022-03-12 | Outpatient (CLI) | payer MEDICARE, OTHER ==
[~2022-03-12] MED LIST changes: +LOSA100T45 PO; -LOSA100T50 PO
== END ==
LOC: M RAD 09:03
PROVIDERS: ATTEND Nurse Practitioner Family
DX: K86.89 Other specified diseases of pancreas (principal); R19.7 Diarrhea, unspecified; K91.89 Other postprocedural complications and disorders of digestive system

== ENCOUNTER → 2022-05-14 | Outpatient (CLI) | payer MEDICARE, OTHER ==
[~2022-05-14] MED LIST changes: +GASTROGRAFIN SOLUTION 30ML (Q9963) As Ordered ONE; +ISOVUE-370 76% 100ML VIAL As Ordered ONE
== END ==
LOC: M RAD 09:29
PROVIDERS: ATTEND Internal Medicine Gastroenterology
DX: K56.609 Unspecified intestinal obstruction, unspecified as to partial versus complete obstruction (principal); N28.1 Cyst of kidney, acquired; R63.4 Abnormal weight loss; K86.89 Other specified diseases of pancreas
CPT/HCPCS: 74177; Q9963; Q9967

== ENCOUNTER → 2022-06-13 | Outpatient (REF) | payer MEDICARE, OTHER ==
[~2022-06-13] MED LIST changes: -GASTROGRAFIN SOLUTION 30ML (Q9963) As Ordered ONE; -ISOVUE-370 76% 100ML VIAL As Ordered ONE
== END ==
LOC: M PLALAB 12:16
PROVIDERS: ATTEND Nurse Practitioner Family
DX: Z12.4 Encounter for screening for malignant neoplasm of cervix (principal); N95.2 Postmenopausal atrophic vaginitis

== ENCOUNTER → 2022-06-13 | Outpatient (CLI) | payer MEDICARE, OTHER | LOC: M WHC 09:56 | PROVIDERS: ATTEND Nurse Practitioner Family | DX: Z12.31 Encounter for screening mammogram for malignant neoplasm of breast (principal); R92.8 Other abnormal and inconclusive findings on diagnostic imaging of breast ==

== ENCOUNTER → 2022-07-25 | Outpatient (CLI) | payer MEDICARE, OTHER | LOC: M WHC 12:34 | PROVIDERS: ATTEND Nurse Practitioner Family | DX: R92.8 Other abnormal and inconclusive findings on diagnostic imaging of breast (principal) | CPT/HCPCS: 77065; G0279 ==

== ENCOUNTER → 2023-06-14 | Outpatient (CLI) | payer MEDICARE, OTHER ==
[~2023-06-14] MED LIST changes: -LOSA100T45 PO; +LOSA100T46 PO
== END ==
LOC: M WHC 11:28
PROVIDERS: ATTEND Nurse Practitioner Family
DX: Z12.31 Encounter for screening mammogram for malignant neoplasm of breast (principal)

== ENCOUNTER → 2024-01-21 | Outpatient (CLI) | payer MEDICARE, OTHER | LOC: M PLAIMG 10:28 | PROVIDERS: ATTEND Internal Medicine Cardiovascular Disease | DX: I27.23 Pulmonary hypertension due to lung diseases and hypoxia (principal); I35.9 Nonrheumatic aortic valve disorder, unspecified; R60.0 Localized edema; I15.0 Renovascular hypertension ==

== ENCOUNTER → 2024-01-21 | Outpatient (CLI) | payer MEDICARE, OTHER ==
[2024-01-21 14:42] LABS: ALBUMIN 3.8 G/DL (3.2-5.2); CALCIUM LEVEL 10.7 MG/DL (8.3-10.6); CREATININE FOR GFR 0.99 MG/DL (0.55-1.30); GLOMERULAR FILTRATION RATE 58.5 (>39); PHOSPHORUS LEVEL 2.7 MG/DL (2.4-5.1); POTASSIUM SERUM 4.3 MMOL/L (3.5-5.1)
== END ==
LOC: M PLALAB 11:42
PROVIDERS: ATTEND Internal Medicine Cardiovascular Disease
DX: I15.0 Renovascular hypertension (principal)

== ENCOUNTER → 2024-04-14 | Outpatient (REF) | payer MEDICARE, OTHER ==
[2024-04-14 13:59] LABS: BASO % 0.7 % (0.0-1.0); EOS # 0.2 10^3/uL (0.0-0.5); EOS % 2.7 % (0.0-3.0); HEMATOCRIT 37.9 % (36.0-47.0); LYMPH # 0.5 10^3/uL (1.5-5.0); LYMPH % 8.2 % (24.0-44.0); MEAN CORPUSCULAR HEMOGLOBIN 30.9 pg (27.0-33.0); MEAN CORPUSCULAR HGB CONC 31.7 g/dl (32.0-36.5); MEAN CORPUSCULAR VOLUME 97.7 fl (80.0-96.0); MONO # 0.5 10^3/uL (0.0-0.8); MONO % 9.8 % (2.0-8.0); NEUTROPHILS # 4.3 10^3/uL (1.5-8.5); NEUTROPHILS % 77.5 % (36.0-66.0); PLATELET COUNT, AUTOMATED 240 10^3/uL (150-450); RED BLOOD COUNT 3.88 10^6/uL (4.00-5.40); WHITE BLOOD COUNT 5.5 10^3/uL (4.0-10.0)
[2024-04-14 14:15] LABS: ALBUMIN 3.4 G/DL (3.2-5.2); ALKALINE PHOSPHATASE 114 U/L (46-116); ALT/SGPT 22 U/L (7.0-40); AST/SGOT 14 U/L (<34); BILIRUBIN,TOTAL 0.4 MG/DL (0.3-1.2); BLOOD UREA NITROGEN 37 MG/DL (9-23); CALCIUM LEVEL 10.5 MG/DL (8.3-10.6); CARBON DIOXIDE LEVEL 26 MMOL/L (20-31); CHLORIDE LEVEL 108 MMOL/L (98-107); CHOLESTEROL LEVEL 111 MG/DL (<200); CHOLESTEROL RISK RATIO 1.59 (<5); CREATININE FOR GFR 0.87 MG/DL (0.55-1.30); GLOMERULAR FILTRATION RATE > 60.0 (>39); GLUCOSE, FASTING 109 MG/DL (74-106); HDL CHOLESTEROL 69.7 MG/DL (>40); LDL CHOLESTEROL 25.1 MG/DL (<100); NON-HDL-C 41.3 MG/DL; POTASSIUM SERUM 4.9 MMOL/L (3.5-5.1); SODIUM LEVEL 138 MMOL/L (136-145); TOTAL PROTEIN 6.3 G/DL (5.7-8.2); TRIGLYCERIDES LEVEL 81 MG/DL (<150)
== END ==
LOC: M LABDRWAD 13:37
PROVIDERS: ATTEND Family Medicine
DX: E11.42 Type 2 diabetes mellitus with diabetic polyneuropathy (principal)

== ENCOUNTER → 2024-06-01 | Outpatient (REF) | payer MEDICARE, OTHER ==
[2024-06-01 14:33] LABS: ALBUMIN 3.3 G/DL (3.2-5.2); ALKALINE PHOSPHATASE 108 U/L (46-116); ALT/SGPT 18 U/L (7.0-40); AST/SGOT 12 U/L (<34); BILIRUBIN,TOTAL 0.4 MG/DL (0.3-1.2); BLOOD UREA NITROGEN 32 MG/DL (9-23); CALCIUM LEVEL 10.3 MG/DL (8.3-10.6); CARBON DIOXIDE LEVEL 29 MMOL/L (20-31); CHLORIDE LEVEL 108 MMOL/L (98-107); CREATININE FOR GFR 0.94 MG/DL (0.55-1.30); GLOMERULAR FILTRATION RATE > 60.0 (>39); GLUCOSE, FASTING 99 MG/DL (74-106); POTASSIUM SERUM 5.3 MMOL/L (3.5-5.1); SODIUM LEVEL 140 MMOL/L (136-145)
== END ==
LOC: M LABDRWAD 13:14
PROVIDERS: ATTEND Internal Medicine Gastroenterology
DX: K62.4 Stenosis of anus and rectum (principal); K91.89 Other postprocedural complications and disorders of digestive system; K59.00 Constipation, unspecified

== ENCOUNTER → 2024-06-17 | Outpatient (CLI) | payer MEDICARE, OTHER | LOC: M WHC 13:12 | PROVIDERS: ATTEND Nurse Practitioner Family | DX: Z12.31 Encounter for screening mammogram for malignant neoplasm of breast (principal); R92.323 Mammographic fibroglandular density, bilateral breasts ==

== ENCOUNTER → 2024-11-13 | Outpatient (CLI) | payer MEDICARE, OTHER ==
[~2024-11-13] MED LIST changes: +METF-1157 PO; -METF-818 PO
== END ==
LOC: M PLARAD 09:53
PROVIDERS: ATTEND Physical Medicine & Rehabilitation
DX: M51.360 Other intervertebral disc degeneration, lumbar region with discogenic back pain only (principal); M54.16 Radiculopathy, lumbar region; M99.73 Connective tissue and disc stenosis of intervertebral foramina of lumbar region

== ENCOUNTER → 2024-12-02 | Outpatient (CLI) | payer MEDICARE, OTHER ==
[2024-12-02 18:36] LABS: ALBUMIN 3.5 G/DL (3.2-5.2); BILIRUBIN,TOTAL 0.5 MG/DL (0.3-1.2); CALCIUM LEVEL 10.6 MG/DL (8.3-10.6); CREATININE FOR GFR 1.43 MG/DL (0.55-1.30); GLOMERULAR FILTRATION RATE 38.2 (>39); POTASSIUM SERUM 4.5 MMOL/L (3.5-5.1); TOTAL PROTEIN 6.8 G/DL (5.7-8.2)
== END ==
LOC: M LAB 17:10
PROVIDERS: ATTEND Dermatology
DX: D48.5 Neoplasm of uncertain behavior of skin (principal)

== ENCOUNTER → 2024-12-02 | Outpatient (REF) | payer MEDICARE, OTHER | LOC: M SFHCDERM 17:32 | PROVIDERS: ATTEND Dermatology | DX: D48.5 Neoplasm of uncertain behavior of skin (principal) ==

== ENCOUNTER → 2024-12-04 | Outpatient (REF) | payer MEDICARE, OTHER ==
[2024-12-04 14:09] LABS: ALBUMIN 3.5 G/DL (3.2-5.2); BILIRUBIN,TOTAL 0.6 MG/DL (0.3-1.2); CALCIUM LEVEL 10.2 MG/DL (8.3-10.6); CREATININE FOR GFR 0.99 MG/DL (0.55-1.30); GLOMERULAR FILTRATION RATE 58.4 (>39); POTASSIUM SERUM 4.6 MMOL/L (3.5-5.1); TOTAL PROTEIN 6.7 G/DL (5.7-8.2)
== END ==
LOC: M LABDRWAD 13:07
PROVIDERS: ATTEND Dermatology
DX: D48.5 Neoplasm of uncertain behavior of skin (principal)

== ENCOUNTER → 2024-12-10 | Outpatient (CLI) | payer MEDICARE, OTHER ==
[~2024-12-10] MED LIST changes: +ISOVUE-370 76% 100ML VIAL ONE
== END ==
LOC: M PLAIMG 14:12
PROVIDERS: ATTEND Dermatology
DX: D48.5 Neoplasm of uncertain behavior of skin (principal)
CPT/HCPCS: 70470; 70491; Q9967

== ENCOUNTER → 2024-12-31 | Outpatient (CLI) | payer MEDICARE, OTHER ==
[~2024-12-31] MED LIST changes: +CREO24CA PO; -ISOVUE-370 76% 100ML VIAL ONE; +LEXA5TAB13 PO; +LIPI20TA PO
== END ==
LOC: M ONCR 13:32
PROVIDERS: ATTEND General Practice
DX: C44.42 Squamous cell carcinoma of skin of scalp and neck (principal); Z85.41 Personal history of malignant neoplasm of cervix uteri; Z92.3 Personal history of irradiation; Z98.890 Other specified postprocedural states; Z90.49 Acquired absence of other specified parts of digestive tract; Z80.8 Family history of malignant neoplasm of other organs or systems; Z87.891 Personal history of nicotine dependence; Z79.82 Long term (current) use of aspirin; Z79.84 Long term (current) use of oral hypoglycemic drugs; Z79.899 Other long term (current) drug therapy

== ENCOUNTER → 2025-01-11 | Outpatient (REF) | payer MEDICARE, OTHER ==
[2025-01-11 19:23] LABS: BASO % 0.6 % (0.0-1.0); EOS # 0.2 10^3/uL (0.0-0.5); EOS % 2.6 % (0.0-3.0); HEMATOCRIT 37.8 % (36.0-47.0); HEMOGLOBIN 12.1 g/dl (12.0-15.5); LYMPH # 0.7 10^3/uL (1.5-5.0); LYMPH % 10.3 % (24.0-44.0); MEAN CORPUSCULAR HEMOGLOBIN 30.3 pg (27.0-33.0); MEAN CORPUSCULAR VOLUME 94.7 fl (80.0-96.0); MONO # 0.6 10^3/uL (0.0-0.8); MONO % 8.7 % (2.0-8.0); NEUTROPHILS # 5.3 10^3/uL (1.5-8.5); NEUTROPHILS % 76.9 % (36.0-66.0); PLATELET COUNT, AUTOMATED 274 10^3/uL (150-450); RED BLOOD COUNT 3.99 10^6/uL (4.00-5.40); WHITE BLOOD COUNT 6.9 10^3/uL (4.0-10.0)
[2025-01-11 19:46] LABS: MAU/CREAT RATIO 7.2 MCG/MG (0.0-30.0)
[2025-01-11 19:47] LABS: ALBUMIN 3.6 G/DL (3.2-5.2); BILIRUBIN,TOTAL 0.6 MG/DL (0.3-1.2); CALCIUM LEVEL 10.5 MG/DL (8.3-10.6); CHOLESTEROL RISK RATIO 1.44 (<5); CREATININE FOR GFR 1.06 MG/DL (0.55-1.30); GLOMERULAR FILTRATION RATE 53.9 (>39); HDL CHOLESTEROL 76.7 MG/DL (>40); LDL CHOLESTEROL 19.7 MG/DL (<100); NON-HDL-C 34.3 MG/DL; POTASSIUM SERUM 4.8 MMOL/L (3.5-5.1); TOTAL PROTEIN 6.8 G/DL (5.7-8.2)
[2025-01-11 20:10] LABS: HEMOGLOBIN A1c 5.9 % (4.0-6.0)
== END ==
LOC: M LABDRWAD 17:05
PROVIDERS: ATTEND Family Medicine
DX: E11.9 Type 2 diabetes mellitus without complications (principal)

== ENCOUNTER → 2025-08-30 | Outpatient (REF) | payer MEDICARE, OTHER | LOC: M LAB REF 16:38 | PROVIDERS: ATTEND Nurse Practitioner Family | DX: R19.7 Diarrhea, unspecified (principal); R19.5 Other fecal abnormalities; K86.89 Other specified diseases of pancreas ==

== ENCOUNTER → 2025-10-14 | Outpatient (CLI) | payer MEDICARE, OTHER | LOC: M WHC 12:51 | PROVIDERS: ATTEND Student in an Organized Health Care Education/Training Program | DX: Z12.31 Encounter for screening mammogram for malignant neoplasm of breast (principal); R92.333 Mammographic heterogeneous density, bilateral breasts ==